=== PATIENT | female | born 1955 | race Caucasian/White ===

== ENCOUNTER 2016-10-16 09:38 | Emergency (ER) | payer BC ==
[2016-10-16 10:02] VITALS: BP 128/46
--- NOTE | 2016-10-16 10:29 | EDM.PDOC ---
ED HPI GENERAL MEDICAL PROBLEM - General Chief Complaint: ENT Problem Stated Complaint: left eye swelling Time Seen by Provider: 10/16/16 09:50 Source of Information: Reports: Patient History Limitations: Reports: No Limitations - History of Present Illness INITIAL COMMENTS - FREE TEXT/NARRATIVE: The patient presents with a "stye" with erythema, pain, swelling, and white purulent drainage from a lesion on her left inferior and lateral eyelid. She reports it began a few days ago and it began having purulent drainage just prior to arrival in the ER. She denies pain or pressure behind the eye and visual changes. She denies fever, chills, and bodyaches. She denies other symptoms or complaints. Left Eye Pain Score (Numeric/FACES): 1 - Related Data Allergies Allergy/AdvReac Type Severity Reaction Status Date / Time generic pain medication Allergy Vomiting Uncoded 11/15/14 23:34 Home Meds: Home Meds ALPRAZolam [Alprazolam] 0.25 - 0.5 mg PO BEDTIME 12/25/13 [History] Albuterol [Proventil HFA] 2 puff INH BID PRN 12/25/13 [History] Aspirin 81 mg PO DAILY 12/25/13 [History] Baclofen 10 mg PO BEDTIME PRN 12/25/13 [History] Clobetasol [Clobetasol Propionate 0.05%] 1 applic TOP DAILY PRN 12/25/13 [ History] Fish Oil/[place]-3 Fatty Acids [Fish Oil] 1 each PO DAILY 12/25/13 [History] Folic Acid 1 mg PO DAILY 12/25/13 [History] Interferon Beta-1a w/Albumin [Rebif] 44 mcg SUBCUT MOWEFR@2100 12/25/13 [History ] Levothyroxine 300 mcg PO ACBRK 12/25/13 [History] Metoprolol Tartrate [Lopressor] 25 mg PO BID 12/25/13 [History] Multivitamin [Multi-Vitamin Daily] 1 tab PO DAILY 12/25/13 [History] Potassium Chloride 10 meq PO QID 12/25/13 [History] Sertraline [Zoloft] 150 mg PO DAILY 12/25/13 [History] Vit D3/Folic Acid/B2/B6/B12 [Folgard Tablet] 1 each PO DAILY 12/25/13 [History] azaTHIOprine [Azathioprine] 1 tab PO TID 12/25/13 [History] predniSONE [Prednisone] 2.5 mg PO DAILY 12/25/13 [History] traMADol [Ultram] 50 mg PO ASDIRECTED PRN 12/25/13 [History] Celecoxib [CeleBREX] 400 mg PO DAILY 04/02/14 [History] Albuterol/Ipratropium [DuoNeb 3.0-0.5 MG/3 ML] 3 ml NEB Q4H PRN #30 neb [Rx] Hydrochlorothiazide 25 mg PO DAILY 11/15/14 [History] Social & Family History - Tobacco Use Smoking Status *Q: Former Smoker Years of Tobacco use: 21 Used Tobacco, but Quit: Yes Month Tobacco Last Used: Stop using at age 39 Second Hand Smoke Exposure: No - Alcohol Use Days Per Week of Alcohol Use: 1 Number of Drinks Per Day: 1 Total Drinks Per Week: 1 - Recreational Drug Use Recreational Drug Use: No Drug Use in Last 12 Months: No Recreational Drug Last Use: 3-4 glasses of tea per day - Living Situation & Occupation Living situation: Reports: Occupation: Employed ED ROS GENERAL - Review of Systems Review Of Systems: ROS reveals no pertinent complaints other than HPI. ED EXAM GENERAL W FULL EYE - Physical Exam Exam: See Below Exam Limited By: No Limitations General Appearance: Alert, WD/WN, No Apparent Distress Eye Exam: Bilateral Eye: EOMI, PERRL Eyelids: Bilateral: Other (There is an internal hordeolum of the left inferior and lateral eyelid measuring about 0.5 cm with a small focal point of white purulent material. There is no evidence of preseptal or orbital cellulitis, conjunctivitis, or keratitis.) Conjunctiva & Sclera: Bilateral: Normal Appearance Cornea Exam: Bilateral: Normal Appearance Extraocular Movements: Bilateral: Intact Pupils: Normal Accommodation Pupillary Size: Bilateral: 4 mm Pupillary Reaction: Bilateral: Brisk Anterior Chamber: Bilateral: Normal Appearance Posterior Chamber: Bilateral: Normal Funduscopic Ears: Normal External Exam, Normal Canal, Hearing Grossly Normal, Normal TMs Nose: Normal Inspection, Normal Mucosa, No Blood Throat/Mouth: Normal Inspection, Normal Lips, Normal Teeth, Normal Gums, Normal Oropharynx Head: Atraumatic, Normocephalic Neck: Normal Inspection, Supple, Non-Tender, Full Range of Motion. No: Lymphadenopathy (L), Lymphadenopathy (R), Tender Lateral, Tender Midline Respiratory/Chest: No Respiratory Distress, Lungs Clear, Normal Breath Sounds, No Accessory Muscle Use Cardiovascular: Normal Peripheral Pulses, Regular Rate, Rhythm, No Edema, No Gallop, No Murmur, No Rub GI/Abdominal: Normal Bowel Sounds, Soft, No Distention Back Exam: Normal Inspection, Full Range of Motion. No: CVA Tenderness (L), CVA Tenderness (R), Paraspinal Tenderness, Vertebral Tenderness Extremities: Normal Inspection, Normal Range of Motion, Non-Tender, No Pedal Edema, Normal Capillary Refill Neurological: Alert, Oriented, CN II-XII Intact, Normal Cognition, Normal Gait, Normal Reflexes, No Motor/Sensory Deficits Psychiatric: Normal Affect, Normal Mood Skin Exam: Warm, Dry, Intact, Normal Color, No Rash Lymphatic: No Adenopathy Course - Vital Signs Last Recorded V/S: Last Vital Signs Temp 36.5 C 10/16/16 09:40 Pulse 45 L 10/16/16 09:40 Resp 20 10/16/16 09:40 BP 128/46 L 10/16/16 09:40 Pulse Ox 100 10/16/16 09:40 Departure - Departure Time of Disposition: 10:30 Disposition: Home, Self-Care 01 Clinical Impression: Hordeolum internum left lower eyelid - Discharge Information Forms: ED Department Discharge - Assessment/Plan Assessment:: Hordeolum internal of left lower lateral eyelid with purulent drainage. Plan: 1. Purluent material expressed and eye flushed copiously with sterile saline. 2. Prescription for erythromycin opthalmic ointment 0.5%, apply to inferior eyelid TID for 7 days. 3. Instructed to wear sunglasses or other eye protection outside and in wind. 4. Follow up with PCP in 5-7 days or sooner if symptoms worsen. 5. Follow up with opthamology if increased/refractory erythema, pain, swelling, purulent drainage, pain or pressure or swelling of eye, or visual changes.
== END 2016-10-16 10:48 | disposition home or self-care (01) ==
LOC: LL.ED 09:38
DX: H00.015 Hordeolum externum left lower eyelid (principal); Z88.8 Allergy status to other drugs, medicaments and biological substances; Z79.899 Other long term (current) drug therapy; Z79.82 Long term (current) use of aspirin; Z87.891 Personal history of nicotine dependence
CPT/HCPCS: 99283

== ENCOUNTER 2018-06-22 12:24 | Observation (INO) | payer BC ==
--- NOTE | 2018-06-22 12:32 | EDM.PDOC ---
ED HPI GENERAL MEDICAL PROBLEM - General Chief Complaint: General Stated Complaint: Fall Time Seen by Provider: 06/22/18 12:25 Source of Information: Reports: Patient, EMS, Family ([id number], Tiki). Denies: EMS Notes Reviewed (Not available at time of dictation) History Limitations: Reports: No Limitations - History of Present Illness INITIAL COMMENTS - FREE TEXT/NARRATIVE: Patient was brought to the emergency room via ambulance with dental equipment technician accompaniment with no treatment in route. The patient slipped out of her bed at about 10 AM this morning with no history of significant fall, head injury, headaches, loss of consciousness, change in mental status, visual changes, paresthesias, neurological deficits, or other complaints or injuries. She does have chronic low back pain, which was not significantly aggravated by the above injury. He did crawl to the living room and did try to get herself up, however even going to her porch, getting help from her [id number], and using a railing on her porch this was unsuccessful. The paramedics did find the patient outside with no history of significant hypothermia, etc.. The patient has noticed that her MS has worsened during the last couple of months with the patient having a walker at home. She has not been going to physical therapy over the winter months. The patient denies any chest pain/pressure, heart flutter, dizziness, orthostasis, orthopnea, diaphoresis, paresthesias, recent decreased exercise tolerance, or any other anginal-type symptoms. No recent history of abdominal pain, heartburn, nausea, diarrhea, melena, gross hematochezia, or any food intolerance, including fatty foods, etc.. She denies any gross hematuria, colic, or other UTI symptoms. The patient also denies any recent fever, cough, wheezing, dyspnea, etc.. Onset: Today, Sudden, Other (As above) Onset Date: 06/22/18 Onset Time: 10:00 Duration: Other (Stable chronic low back pain) Location: Reports: Back. Denies: Head, Face, Neck, Chest, Abdomen, Pelvis, Upper Extremity, Left, Upper Extremity, Right, Lower Extremity, Left, Lower Extremity, Right, Generalized, Radiates to Quality: Reports: Ache, Same as Previous Episode Severity: Mild Improves with: Reports: None Worsens with: Reports: None Context: Reports: Trauma (As above) Associated Symptoms: Reports: Weakness (Progressive MS as above). Denies: Confusion, Chest Pain, Cough, Diaphoresis, Fever/Chills, Headaches, Loss of Appetite, Malaise, Nausea/Vomiting, Seizure, Shortness of Breath, Syncope Treatments GENERAL MAINTENANCE HELPER: Reports: Other (see below) (None) Lower Back Pain Score (Numeric/FACES): 4 - Related Data Allergies Allergy/AdvReac Type Severity Reaction Status Date / Time generic pain medication Allergy Vomiting Uncoded 11/15/14 23:34 Home Meds: Home Meds ALPRAZolam [Alprazolam] 0.25 - 0.5 mg PO BEDTIME 12/25/13 [History] Albuterol [Proventil HFA] 2 puff INH Q4HR PRN 12/25/13 [History] Aspirin 81 mg PO DAILY 12/25/13 [History] Baclofen 10 mg PO TID PRN 12/25/13 [History] Clobetasol [Clobetasol Propionate 0.05% Cream] 1 applic TOP BID PRN 12/25/13 [ History] Fish Oil/[place]-3 Fatty Acids [Fish Oil] 1 each PO DAILY 12/25/13 [History] Folic Acid 1 mg PO DAILY 12/25/13 [History] Interferon Beta-1a w/Albumin [Rebif] 44 mcg SUBCUT MOWEFR@2100 12/25/13 [History ] Metoprolol Tartrate [Lopressor] 25 mg PO BID 12/25/13 [History] Multivitamin [Multi-Vitamin Daily] 1 tab PO DAILY 12/25/13 [History] Potassium Chloride 20 meq PO BID 12/25/13 [History] Sertraline [Zoloft] 100 mg PO DAILY 12/25/13 [History] azaTHIOprine [Azathioprine] 1 tab PO BID 12/25/13 [History] predniSONE [Prednisone] 5 mg PO DAILY 12/25/13 [History] traMADol [Ultram] 50 mg PO ASDIRECTED PRN 12/25/13 [History] Celecoxib [CeleBREX] 400 mg PO DAILY 04/02/14 [History] hydroCHLOROthiazide [Hydrochlorothiazide] 12.5 mg PO DAILY 11/15/14 [History] Acetaminophen with Codeine [Acetaminophen-Cod #3] 1 each PO BID PRN 06/22/18 [ History] Albuterol/Ipratropium [DuoNeb 3.0-0.5 MG/3 ML] 3 ml NEB Q6HR PRN 06/22/18 [ History] Betamethasone/Propylene Glyc [Betamethasone DP Aug 0.05%] 30 ml TP ASDIRECTED PRN 06/22/18 [History] Cinnamon Bark [Cinnamon] 500 mg PO DAILY 06/22/18 [History] Diclofenac Sodium [Solaraze] 100 gm TP ASDIRECTED PRN 06/22/18 [History] Fluticasone/Vilanterol [Breo Ellipta 100-25 MCG Inhalation Kit] 1 each IH DAILY 06/22/18 [History] Makenna Root [Makenna] 250 mg PO DAILY 06/22/18 [History] Ketoconazole [Ketoconazole 2%] 1 applic TOP BID PRN 06/22/18 [History] Levothyroxine 175 mcg PO ACBRK 06/22/18 [History] Liothyronine [Cytomel] 5 mcg PO DAILY 06/22/18 [History] Oxybutynin [Oxybutynin ER] 5 mg PO DAILY 06/22/18 [History] Phentermine HCl 37.5 mg PO DAILY 06/22/18 [History] Pregabalin [Lyrica] 75 mg PO DAILY 06/22/18 [History] Pregabalin [Lyrica] 150 mg PO BEDTIME 06/22/18 [History] Triamcinolone Acetonide [Kenalog 0.1% Crm] 1 applic TOP BID PRN 06/22/18 [ History] sulfaSALAzine 1,000 mg PO DAILY PRN 06/22/18 [History] Past Medical History HEENT History: Reports: Impaired Vision, Other (See Below). Denies: Allergic Rhinitis, Cataract, Glaucoma, Hard of Hearing, Macular Degeneration, Otitis Media, Retinal Detachment Other HEENT History: She wears glasses. Cardiovascular History: Reports: Arrhythmia, Heart Failure, High Cholesterol, Hypertension, Other (See Below). Denies: Aneurysm, Blood Clots/VTE/DVT, CAD, Heart Murmur, Syncope Other Cardiovascular History: PVCs. Dyslipidemia and obesity. Respiratory History: Reports: Asthma, Bronchitis, Recurrent, COPD, Intubation, Previous, Pneumonia, Recurrent, Pulmonary Fibrosis, Sleep Apnea, Other (See Below). Denies: Intubation, Difficult, PE, Pneumothorax, TB Other Respiratory History: Sleep apnea and restless leg syndrome with patient noncompliant with her CPAP recently Gastrointestinal History: Reports: Cholelithiasis, Chronic Constipation, Diverticulosis, Gastritis, GERD, Hiatal Hernia, Other (See Below). Denies: Bowel Obstruction, Celiac Disease, Chronic Diarrhea, Colon Polyp, Fecal Incontinence, GI Bleed, Hepatitis, Inflammatory Bowel Disease, Irritable Bowel Syndrome, Jaundice, Pancreatitis, PUD Other Gastrointestinal History: Ventral abdominal hernias by CT scan. Genitourinary History: Reports: Hydronephrosis, Renal Calculus, Urinary Incontinence, Other (See Below). Denies: Acute Renal Failure, Chronic Renal Insuffiency, STD, UTI, Recurrent Other Genitourinary History: Sided urolithiasis on 10/22/12. Moderate right- sided hydronephrosis with additional urolithiasis with spontaneous passage on 12/25/13. GLOVE BRUSHER History: Reports: Dysfunctional Uterine Bleeding, Polycystic Ovaries, . Denies: Endometriosis, Fibroids, Spontaneous : 2 Para: 2 LMP (Approximate): Other (See Below) Other GLOVE BRUSHER History: Full term without complications during pregnancies or deliveries. Surgical menopause as below secondary to polycystic ovarian syndrome. Musculoskeletal History: Reports: Arthritis, Back Pain, Chronic, Fibromyalgia, Neck Pain, Chronic, Osteoarthritis, RA, Other (See Below). 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 Small proximal avulsion fracture of the middle phalanx of digit #5 of the left hand with PIP dislocation on 11/05/14 with dislocation of the middle phalanx. Neurological History: Reports: Headaches, Chronic, MS, Neuropathy, Peripheral, Speech Problems, Vertigo, Other (See Below). Denies: Cerebral Aneurysms, Concussion, CVA, Head Trauma, Migraines, Neuropathy, Diabetic, Parkinson's, Seizure, TIA Other Neuro History: Restless leg syndrome. Occasional dysarthria and vertigo/ dizziness secondary to her MS diagnosed on 10/18/06 by MRI as below. Psychiatric History: Reports: Addiction, Anxiety, Depression, Other (See Below) . Denies: Abuse, Victim of, ADD, ADHD, Psych Hospitalization(s), PTSD, Suicide Attempt, Suicidal Ideation Other Psychiatric History: Intermittent Ultram use. Endocrine/Metabolic History: Reports: Hypothyroidism, Multinodular Thyroid, Obesity/BMI 30+, Other (See Below). 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 Hypokalemia. Hematologic History: Reports: Other (See Below). Denies: Anemia, Blood Transfusion(s), Iron Deficiency Other Hematologic History: Anemia after first . Immunologic History: Reports: None, Immunosuppression, Other (See Below). Denies: AIDS, HIV, SLE Other Immunologic History: Immunosuppression secondary to medical therapy for her MS. Oncologic (Cancer) History: Reports: Squamous Cell Carcinoma, Other (See Below) . 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 Dermatologic History: Reports: Psoriasis. Denies: Eczema, Venous Stasis Dermatitis - Infectious Disease History Infectious Disease History: Reports: Chicken Pox, Influenza (Influenza A on 04/02), Mononucleosis (Recurrent in her 30s), Rheumatic Fever (1994.). Denies: C- Difficile, Measles, Meningitis, MRSA, Mumps, Pertussis (Whooping Cough), Rubella , Scarlet Fever, Shingles, TB, VRE - Past Surgical History Head Surgeries/Procedures: Reports: None HEENT Surgical History: Reports: Oral Surgery, Other (See Below). Denies: Adenoidectomy, Cataract Surgery, Eye Surgery, Laser Surgery, Myringotomy w Tube( s), Naso-Sinus Surgery, Tonsillectomy Other HEENT Surgeries/Procedures: Multiple teeth extractions. Cardiovascular Surgical History: Reports: None. Denies: Varicose Respiratory Surgical History: Reports: Other (See Below). Denies: Thoracentesis Other Respiratory Surgeries/Procedures: Bronchoscopy at age 6 to remove a peanut. GI Surgical History: Reports: Bariatric Procedure, Cholecystectomy, Colonoscopy , Other (See Below). Denies: Appendectomy, EGD, Hernia, Abdominal, Hernia, Inguinal, Hernia Repair/Other, Polypectomy Other GI Surgeries/Procedures: Colonoscopy last in 2009. Gastric banding in 2008. Laparoscopic cholecystectomy in 2007. Female Surgical History: Reports: Breast Biopsy, D&C, Hysterectomy, Oophorectomy, Salpingo-Oophorectomy, Tubal Ligation, Other (See Below). Denies : Section Other Female Surgeries/Procedures: Lateral tubal ligation in 1987. D&C secondary to dysfunctional uterine bleeding on 10/06/95. Left-sided oophorectomy in April 1985. Laparoscopic assisted vaginal hysterectomy with concomitant right-sided salpingo-oophorectomy and posterior repair on 04/09/99. Endocrine Surgical History: Reports: None. Denies: Thyroid Biopsy Musculoskeletal Surgical History: Reports: Other (See Below) Other Musculoskeletal Surgeries/Procedures:: Left arthroscopic knee surgery in the . Left TKA on 02/05/2000 with right TKA on 09/25/11. Left open knee surgery in 1975. Dermatological Surgical History: Reports: Skin Biopsy, Other (See Below) Other Dermatological Surgeries/Procedures: Excision of squamous cell carcinoma from the lower right cheek in September 2017. Multiple skin biopsies for diagnosis of psoriasis as above. Excision of benign right sided cervical lymph node on 21/05. - Past Imaging History Past Imaging History: Reports: Angiography (Negative heart catheterization on 09/29/16.), Cardiac Echo (06/06/12 with ejection fraction of 55%.), CAT Scan (CT of the abdomen and pelvis on 12/25/13 and 10/22/12.), DEXA Scan (01/31/15), Mammogram ( Last mammogram on 01/07/17.), MRI (MRI of the lumbar spine on 03/03/18 and thoracic spine on 04/15/14. MRI of the Brain on 10/18/06 confirming MS.), PFT ( Last PFTs on 03/17/18.), Stress Testing (Borderline positive Lexiscan on 08/31/16. ), Ultrasound (Soft tissue ultrasound of the neck on 08/26/17.), Other (See Below ) (Multiple EMGs and nerve conduction studies last on 04/13/18. Visual evoked potential on 12/12/12.) Social & Family History - Family History HEENT: Reports: None. Denies: Glaucoma, Macular Degeneration, Retinal Detachment Cardiac: Reports: Afib, AICD, Arrhythmia, Blood Clots/VTE/DVT, Bypass, CAD, High Cholesterol, Hypertension, NC, Pacemaker, Other (See Below). Denies: Aneurysm, Heart Failure, Heart Murmur, Syncope Other Cardiac Family History: Father with history of postoperative DVT of the leg after CABG. Father with initial NC at age 51 with three-vessel CABG. Subsequent NC, atrial fibrillation, and AICD/pacemaker placement at age 61. Patient with fatal NC/arrhythmia despite the ICD at age 70. Paternal grandmother with unknown type of fatal heart disease in her early 50s. Brother and father with hyperlipidemia. Mother with hypertension. Paternal aunt with mitral valve prolapse. Respiratory: Reports: COPD, Sleep Apnea. Denies: Asthma, PE, Pneumothorax Other Respiratory Family Hisory: Son with sleep apnea. Father with COPD with history of tobacco use. GI: Reports: Celiac Disease, Pancreatitis, Other (See Below). Denies: Cholelithiasis, Colon Polyps, GERD, GI bleed, Inflammatory Bowel Disease, Irritable Bowel Syndrome Other GI Family History: Mother with cholelithiasis and diverticulosis. Son with celiac disease. Sister with cholelithiasis and secondary pancreatitis. : Reports: Renal Calculus, Other (See Below). Denies: Renal Disease/ Insufficiency Other Family History: Brother with urolithiasis. OBGYN: Reports: None. Denies: Dysfunctional uterine bleeding, Endometriosis, Recurrent Spontaneous Musculoskeletal: Reports: Arthritis, Gout, Other (See Below). Denies: RA, SLE Other Musculoskeletal Family History: Son with gout. Neurological: Reports: Migraines, Seizure, Other (See Below). Denies: Alzheimers Disease, Cerebral Aneurysms, CVA, Dementia, MS, Parkinson's, TIA Other Neurological Family History: Son with migraine headaches. Sister with unknown type of seizure disorder. Psychiatric: Reports: Anxiety, Depression, Other (See Below). Denies: Abuse, Victim of, ADD, ADHD Other Psychiatric Family History: Son with anxiety depression disorder. Endocrine/Metabolic: Reports: Diabetes, type II, Hypothyroidism, IDDM, Other ( See Below) Other Endocrine/Metabolic Family History: Paternal aunt and Maternal grandfather with IDDM. Sister and mother with hypothyroidism. Hematologic: Reports: None. Denies: Anemia, SLE Immunologic: Reports: None. Denies: AIDS, HIV, SLE Dermatologic: Reports: None. Denies: Eczema, Psoriasis Oncologic: Reports: Lung, Skin, Other (See Below). Denies: Breast, Colon, Hodgkin's Lymphoma, Leukemia, Ovarian, Uterine Other Oncologic Family History: Paternal grandfather with fatal lung cancer at age 65 with history of tobacco use. Mother with squamous cell carcinoma. Father with basal cell carcinoma. Brother with melanoma. Maternal uncle with fatal pancreatic cancer in his 70s. - Tobacco Use Smoking Status *Q: Former Smoker Tobacco Use Within Last Twelve Months: No Years of Tobacco use: 10 Packs/Tins Daily: 1 Packs/Tins Daily Comment: Smoked between ages 19 and 29. Used Tobacco, but Quit: Yes Smoking Cessation Information Provided To Patient: No Second Hand Smoke Exposure: No Second Hand Smoke Education Provided: No - Caffeine Use Caffeine Use: Reports: Coffee (3 cups per week), Tea (4 12 ounce glasses per day ). Denies: Energy Drinks, Soda - Alcohol Use Alcohol Use History: Yes Days Per Week of Alcohol Use: 0 Number of Drinks Per Day: 2 Number of Drinks Per Day Comment: Usually wine every couple of months. DWI at age 20 with no previous history of abuse or treatment. Total Drinks Per Week: 0 Alcohol Use in Last Twelve Months: Yes Alcohol Use Frequency: Monthly - Recreational Drug Use Recreational Drug Use: No Recreational Drug Type: Reports: Marijuana/Hashish (Experimental at about age 20.). 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 ED EXAM, GENERAL - Physical Exam Exam: See Below Exam Limited By: No Limitations General Appearance: Alert, WD/WN, No Apparent Distress, Anxious (Moderate) Eye Exam: Bilateral Eye: EOMI, Normal Inspection (No nystagmus. Patient wears glasses), PERRL Ears: Normal External Exam, Normal Canal, Hearing Grossly Normal, Normal TMs Nose: Normal Inspection, Normal Mucosa, No Blood Throat/Mouth: Normal Lips, Normal Gums, Normal Oropharynx, Normal Voice, No Airway Compromise. No: Normal Teeth (Multiple missing teeth and diffuse caries with no abscesses or drainage), Dysphagia, Perioral Cyanosis Head: Atraumatic, Normocephalic. No: Facial Swelling, Facial Tenderness, Sinus Tenderness Neck: Normal Inspection, Supple, Non-Tender, Full Range of Motion. No: Carotid Bruit, Lymphadenopathy (L), Lymphadenopathy (R), Thyromegaly Respiratory/Chest: No Respiratory Distress, Lungs Clear, Normal Breath Sounds, No Accessory Muscle Use, Chest Non-Tender. No: Pleural Rub, Retractions Cardiovascular: Normal Peripheral Pulses, Regular Rate, Rhythm, No Edema, No Gallop, No JVD, No Murmur, No Rub. No: Gallop/S3, Gallop/S4, Friction Rub Peripheral Pulses: 2+: Radial (L), Radial (R), Dorsalis Pedis (L), Dorsalis Pedis (R) GI/Abdominal: Normal Bowel Sounds, Soft, Non-Tender, No Organomegaly, No Distention, No Abnormal Bruit, No Mass, Pelvis Stable, Other (Obese). No: Guarding (Female) Exam: Deferred Rectal (Female) Exam: Deferred Back Exam: Full Range of Motion, Other (Mild scoliosis). No: CVA Tenderness (L) , CVA Tenderness (R), Muscle Spasm, Paraspinal Tenderness, Vertebral Tenderness Extremities: Normal Inspection, Normal Range of Motion, Non-Tender, No Pedal Edema, Normal Capillary Refill, Other (Multiple old areas of small ecchymosis and superficial abrasions on the forearms). No: Román's Sign Neurological: Alert, Oriented, Normal Cognition, Normal Reflexes (Negative Babinski's), Abnormal Gait (Mild mostly right-sided leg weakness affecting gait secondary to MS) Psychiatric: Anxious (Moderate), Depressed Mood (Mild to moderate) Skin Exam: Warm, Dry, Intact, Normal Color, No Rash, Wound/Incision (As above). No: Diaphoretic, Ecchymosis Lymphatic: No Adenopathy Course - Vital Signs Last Recorded V/S: Last Vital Signs Temp 36.2 C 06/22/18 14:03 Pulse 50 L 06/22/18 14:03 Resp 18 06/22/18 14:03 BP 158/74 H 06/22/18 14:03 Pulse Ox 97 06/22/18 14:03 Vital Signs - 24 hr 06/22/18 06/22/18 06/22/18 12:25 14:03 14:36 Temperature [ 36.2 C 36.2 C 36.8 C Temporal] Pulse, 72 50 L 53 L Peripheral [ Right Pulse Oximetry] Respiratory 15 18 18 Rate Blood Pressure 143/78 H 158/74 H 158/53 H [Left Upper Arm ] O2 Sat by Pulse 97 97 98 Oximetry - Orders/Labs/Meds Orders: Active Orders 24 hr Category Date Time Status Cardiac Monitoring [RC] . DIRECTED Care 06/22/18 14:34 Ordered Obtain Past Medical Record [OM.PC] Routine Oth 06/22/18 12:50 Active Labs: Laboratory Tests 06/22/18 06/22/18 06/22/18 Range/Units 13:30 13:30 13:30 WBC 10.4 H (4.0-10.2) K/uL RBC 4.41 (3.77-5.09) M/uL Hgb 13.5 (11.7-15.5) g/dL Hct 40.9 (34.0-46.0) % MCV 92.7 D (84.0-98.0) fL MCH 30.6 (28.2-33.3) pg MCHC 33.0 (31.7-36.0) g/dL RDW 14.0 (11.2-14.1) % Plt Count 194 (150-350) K/uL Neut % (Auto) 83.3 H (45.0-80.0) % Lymph % (Auto) 8.1 L (10.0-50.0) % [place] % (Auto) 7.4 (2.0-14.0) % Eos % (Auto) 1.0 (0.0-5.0) % Baso % (Auto) 0.2 (0.0-2.0) % Neut # (Auto) 8.70 H (1.40-7.00) K/uL Lymph # (Auto) 0.85 (0.50-3.50) K/uL [place] # (Auto) 0.77 (0.00-1.00) K/uL Eos # (Auto) 0.10 (0.00-0.50) K/uL Baso # (Auto) 0.02 (0.00-0.20) K/uL Sodium 139 (136-145) mmol/L Potassium 4.1 (3.5-5.1) mmol/L Chloride 103 (98-107) mmol/L Carbon Dioxide 27.8 (21.0-32.0) mmol/L BUN 11 (7-18) mg/dL Creatinine 0.66 (0.51-1.17) mg/dL Est Cr Clr Drug Dosing 87.05 mL/min Estimated GFR (MDRD) > 60 mL/min Glucose 96 (74-106) mg/dL Lactic Acid 1.8 (0.4-2.0) mmol/L Calcium 9.7 (8.5-10.1) mg/dL Total Bilirubin 0.3 (0.2-1.0) mg/dL AST 22 (15-37) U/L ALT 21 (12-78) U/L Alkaline Phosphatase 93 (46-116) IU/L Total Protein 7.3 (6.4-8.2) g/dL Albumin 3.4 (3.4-5.0) g/dL TSH, Ultra Sensitive 0.060 L (0.358-3.740) mIU/mL Meds: None - Radiology Interpretation Free Text/Narrative:: Enterprise Resource Planning Consultant shows normal sinus rhythm in the high 50s to low 60s with no ectopy or arrhythmia. Departure - Departure Time of Disposition: 14:45 Disposition: Refer to Observation Clinical Impression: COPD (chronic obstructive pulmonary disease), Multiple sclerosis, Hypertension , Hypothyroidism (acquired), Osteoarthritis, Mixed anxiety depressive disorder, Obesity (BMI 35.0-39.9 without comorbidity) - Discharge Information *PRESCRIPTION DRUG MONITORING PROGRAM REVIEWED*: Not Applicable *COPY OF PRESCRIPTION DRUG MONITORING REPORT IN PATIENT YARELI: Not Applicable Referrals: Arsen-Isabell Oropeza MD [Primary Care Provider] - Forms: ED Department Discharge Care Plan Goals: See plan - Problem List & Annotations (1) Multiple sclerosis SNOMED Code(s): 58107680 Code(s): G35 - MULTIPLE SCLEROSIS Status: Chronic Priority: High Current Visit: Yes Annotation/Comment:: Progressive weakness secondary to her MS during the last couple of months as above. Minor fall today with no significant injury. One dose of IV Solu-Medrol to be given shortly after admission with further neurology consultation, medication changes, etc. depending on her clinical course. She was strongly advised to continue her physical therapy including during the winter months. (2) Hypothyroidism (acquired) SNOMED Code(s): 960526763 Code(s): E03.9 - HYPOTHYROIDISM, UNSPECIFIED Status: Chronic Priority: High Current Visit: Yes Annotation/Comment:: Persistent suppressed TSH despite recent decrease of her thyroid supplementation about 3 months ago with no follow-up evaluation by patient history. Free T3, free T4, and thyroid ultrasound be ordered during this hospitalization. Endocrinology consultation when necessary with suspicion of possible Ryan's disease from previous thyroid ultrasound on 08/26/17 as above. (3) COPD (chronic obstructive pulmonary disease) SNOMED Code(s): 61114874 Code(s): J44.9 - CHRONIC OBSTRUCTIVE PULMONARY DISEASE, UNSPECIFIED Status : Chronic Priority: Medium Current Visit: Yes Annotation/Comment:: No recent fever or bronchitic type symptoms. Stable by history. Qualifiers: COPD type: emphysema Emphysema type: panlobular Qualified Code(s): J43.1 - Panlobular emphysema (4) Hypertension SNOMED Code(s): 50835552 Code(s): I10 - ESSENTIAL (PRIMARY) HYPERTENSION Status: Chronic Priority : Medium Current Visit: Yes Annotation/Comment:: Blood pressures were stable in the emergency room although occasionally elevated. Continue to observe closely. Some occasional mild bradycardia with current beta juan therapy. Medication adjustment depending on her clinical course. Qualifiers: Hypertension type: essential hypertension Qualified Code(s): I10 - Essential (primary) hypertension (5) Mixed anxiety depressive disorder SNOMED Code(s): 745454626 Code(s): F41.8 - OTHER SPECIFIED ANXIETY DISORDERS Status: Chronic Priority: Medium Current Visit: Yes Annotation/Comment:: Stable by history, however moderate control by today's ER evaluation. Continue to observe closely. (6) Obesity (BMI 35.0-39.9 without comorbidity) SNOMED Code(s): 290993503, 668956907 Code(s): E66.9 - OBESITY, UNSPECIFIED Status: Chronic Priority: Medium Current Visit: Yes Annotation/Comment:: Persistent obesity despite gastric lap banding as above. Weight loss in moderation advisable. (7) Osteoarthritis SNOMED Code(s): 120233239 Code(s): M19.90 - UNSPECIFIED OSTEOARTHRITIS, UNSPECIFIED SITE Status: Chronic Priority: Medium Current Visit: Yes Annotation/Comment:: Stable chronic low back pain by history with no significant injury from fall as above. Qualifiers: Osteoarthritis location: multiple joints Osteoarthritis type: primary Qualified Code(s): M15.0 - Primary generalized (osteo)arthritis - Problem List Review Problem List Initiated/Reviewed/Updated: Yes - My Orders Last 24 Hours: My Active Orders 06/22/18 12:50 Obtain Past Medical Record [OM.PC] Routine 06/22/18 14:34 Cardiac Monitoring [RC] . DIRECTED - Assessment/Plan Admission H&P: Please use this note as an admission H&P Last 24 Hours: My Active Orders 06/22/18 12:50 Obtain Past Medical Record [OM.PC] Routine 06/22/18 14:34 Cardiac Monitoring [RC] . DIRECTED Assessment:: As above Plan: As above. Extensive precautions were given to the patient, who is in agreement with the treatment plan. The patient's condition is stable enough for observation status and general supervision. [facility] to assume care in the a.m. with Isabell Womack MD at [facility] in [place] notified today by me of admission and planned treatment.
[2018-06-22 13:58] LABS: CHLORIDE,CL 103 mmol/L (98-107); SODIUM,NA 139 mmol/L (136-145)
[2018-06-22] MEDS ORDERED: Baclofen 10 MG Tab PO PRN (15:16)
[2018-06-22] MEDS ORDERED: Clobetasol 0.05% Crm 15 GM Tube TOP PRN (15:16)
[2018-06-22] MEDS ORDERED: methylPREDNISolone Sodium Succinate 125 MG/2 ML SDV IVPUSH ONE (15:19)
[2018-06-22] MEDS ORDERED: Famotidine 20 MG/2 ML SDV IVPUSH ONE (15:20)
[2018-06-22] MEDS ORDERED: Albuterol/Ipratropium 3.0-0.5 MG/3 ML Neb Soln NEB PRN (15:47)
[2018-06-22] MEDS ORDERED: Enoxaparin 40 MG/0.4 ML Syringe SUBCUT ONE ×2 (15:53→18:00)
[2018-06-22] MEDS ORDERED: Albuterol 0.083% 2.5 MG/3 ML Neb Soln INH PRN (16:00)
[2018-06-22] MEDS: Metoprolol Tartrate 25 MG Tab PO SCH (17:47)
[2018-06-22] MEDS: Potassium Chloride 10 MEQ Tab.ER PO SCH (17:47)
[2018-06-22] MEDS ORDERED: Pregabalin 75 MG Cap PO SCH (20:00)
[2018-06-22] MEDS: Albuterol/Ipratropium 3.0-0.5 MG/3 ML Neb Soln NEB SCH (20:21)
[2018-06-23] MEDS: Albuterol/Ipratropium 3.0-0.5 MG/3 ML Neb Soln NEB SCH ×3 (01:12→14:41)
[2018-06-23] MEDS ORDERED: Levothyroxine 25 MCG Tab PO SCH (07:30)
[2018-06-23] MEDS ORDERED: Levothyroxine 112 MCG Tab PO SCH (07:30)
[2018-06-23 07:39] LABS: CHLORIDE,CL 106 mmol/L (98-107); SODIUM,NA 142 mmol/L (136-145)
[2018-06-23] MEDS ORDERED: Formoterol/Mometasone 100-5 MCG 8.8 GM Inhaler IH SCH (08:00)
[2018-06-23] MEDS ORDERED: Hydrochlorothiazide 25 MG Tab PO SCH (08:00)
[2018-06-23] MEDS ORDERED: Celecoxib 100 MG Cap PO SCH (08:00)
[2018-06-23] MEDS ORDERED: Oxybutynin 5 MG Tab.ER PO SCH (08:00)
[2018-06-23] MEDS ORDERED: Sertraline 50 MG Tab PO SCH (08:00)
[2018-06-23] MEDS ORDERED: predniSONE 5 MG Tab PO SCH (08:00)
[2018-06-23] MEDS ORDERED: Fish Oil/Omega-3 Fatty Acids 1 Gm Cap PO SCH (08:00)
[2018-06-23] MEDS ORDERED: Pregabalin 75 MG Cap PO SCH (08:00)
[2018-06-23] MEDS ORDERED: PHENTERMINE HCL 37.5 MG PO SCH (08:00)
[2018-06-23] MEDS ORDERED: Folic Acid 1 MG Tab PO SCH (08:00)
[2018-06-23] MEDS ORDERED: Aspirin 81 MG Tab.Chew PO SCH (08:00)
[2018-06-23] MEDS: Metoprolol Tartrate 25 MG Tab PO SCH (08:31)
[2018-06-23] MEDS: Potassium Chloride 10 MEQ Tab.ER PO SCH (08:32)
[2018-06-23 11:51] VITALS: BP 142/69
--- NOTE | 2018-06-23 17:13 | PCM.PN ---
- General Info Date of Service: 06/23/18 Functional Status: Reports: Pain Controlled - Review of Systems General: Reports: Weakness (but at baseline) HEENT: Reports: No Symptoms Pulmonary: Reports: No Symptoms Cardiovascular: Reports: No Symptoms Gastrointestinal: Reports: No Symptoms Genitourinary: Reports: No Symptoms Musculoskeletal: Reports: Back Pain (chronic), Leg Pain (chronic), Joint Pain ( chronic) Skin: Reports: No Symptoms Neurological: Reports: Pre-Existing Deficit, Difficulty Walking (at baseline), Weakness Psychiatric: Reports: No Symptoms, Anxiety (at times) - Patient Data Vitals - Most Recent: Last Vital Signs Temp 98.5 F 06/23/18 11:50 Pulse 80 06/23/18 11:50 Resp 16 06/23/18 11:50 BP 142/69 H 06/23/18 11:50 Pulse Ox 97 06/23/18 11:50 Weight - Most Recent: 304 lb I&O - Last 24 Hours: Intake & Output 06/23/18 06/23/18 06/23/18 06:59 14:59 22:59 Intake Total 50 600 Output Total 100 Balance -50 600 Lab Results Last 24 Hours: Laboratory Results - last 24 hr 06/22/18 06/23/18 06/23/18 Range/Units 13:30 06:45 06:45 WBC 9.9 (4.0-10.2) K/uL RBC 4.19 (3.77-5.09) M/uL Hgb 12.7 (11.7-15.5) g/dL Hct 39.1 (34.0-46.0) % MCV 93.3 (84.0-98.0) fL MCH 30.3 (28.2-33.3) pg MCHC 32.5 (31.7-36.0) g/dL RDW 13.6 (11.2-14.1) % Plt Count 197 (150-350) K/uL Neut % (Auto) 93.1 H (45.0-80.0) % Lymph % (Auto) 3.5 L (10.0-50.0) % [place] % (Auto) 3.3 (2.0-14.0) % Eos % (Auto) 0.0 (0.0-5.0) % Baso % (Auto) 0.1 (0.0-2.0) % Neut # (Auto) 9.25 H (1.40-7.00) K/uL Lymph # (Auto) 0.35 L (0.50-3.50) K/uL [place] # (Auto) 0.33 (0.00-1.00) K/uL Eos # (Auto) 0.00 (0.00-0.50) K/uL Baso # (Auto) 0.01 (0.00-0.20) K/uL ESR 45 H (0-30) mm/hr Sodium 142 (136-145) mmol/L Potassium 4.3 (3.5-5.1) mmol/L Chloride 106 (98-107) mmol/L Carbon Dioxide 28.2 (21.0-32.0) mmol/L BUN 12 (7-18) mg/dL Creatinine 0.66 (0.51-1.17) mg/dL Est Cr Clr Drug Dosing 87.05 mL/min Estimated GFR (MDRD) > 60 mL/min Glucose 139 H (74-106) mg/dL Calcium 9.2 (8.5-10.1) mg/dL Total Bilirubin 0.3 (0.2-1.0) mg/dL AST 23 (15-37) U/L ALT 22 (12-78) U/L Alkaline Phosphatase 85 (46-116) IU/L C-Reactive Protein 0.8 3.2 H (<=0.9) mg/dL Total Protein 6.7 (6.4-8.2) g/dL Albumin 3.0 L (3.4-5.0) g/dL Vitamin B12 903 (193-986) pg/mL Folate (8.6-58.9) ng/mL Free T4 1.64 H (0.76-1.46) ng/dL 06/23/18 Range/Units 06:45 WBC (4.0-10.2) K/uL RBC (3.77-5.09) M/uL Hgb (11.7-15.5) g/dL Hct (34.0-46.0) % MCV (84.0-98.0) fL MCH (28.2-33.3) pg MCHC (31.7-36.0) g/dL RDW (11.2-14.1) % Plt Count (150-350) K/uL Neut % (Auto) (45.0-80.0) % Lymph % (Auto) (10.0-50.0) % [place] % (Auto) (2.0-14.0) % Eos % (Auto) (0.0-5.0) % Baso % (Auto) (0.0-2.0) % Neut # (Auto) (1.40-7.00) K/uL Lymph # (Auto) (0.50-3.50) K/uL [place] # (Auto) (0.00-1.00) K/uL Eos # (Auto) (0.00-0.50) K/uL Baso # (Auto) (0.00-0.20) K/uL ESR (0-30) mm/hr Sodium (136-145) mmol/L Potassium (3.5-5.1) mmol/L Chloride (98-107) mmol/L Carbon Dioxide (21.0-32.0) mmol/L BUN (7-18) mg/dL Creatinine (0.51-1.17) mg/dL Est Cr Clr Drug Dosing mL/min Estimated GFR (MDRD) mL/min Glucose (74-106) mg/dL Calcium (8.5-10.1) mg/dL Total Bilirubin (0.2-1.0) mg/dL AST (15-37) U/L ALT (12-78) U/L Alkaline Phosphatase (46-116) IU/L C-Reactive Protein (<=0.9) mg/dL Total Protein (6.4-8.2) g/dL Albumin (3.4-5.0) g/dL Vitamin B12 (193-986) pg/mL Folate 23.4 (8.6-58.9) ng/mL Free T4 (0.76-1.46) ng/dL Med Orders - Current: Current Medications Albuterol (Proventil Neb Soln) 2.5 mg INH Q2H PRN PRN Reason: SHORTNESS OF BREATH Albuterol/Ipratropium (Duoneb 3.0-0.5 Mg/3 Ml) 3 ml NEB Q4HRRT PRN PRN Reason: Dyspnea Albuterol/Ipratropium (Duoneb 3.0-0.5 Mg/3 Ml) 3 ml NEB Q6HRRT [facility] Last Admin: 06/23/18 14:41 Dose: 3 ml Aspirin (Aspirin) 81 mg PO DAILY [facility] Last Admin: 06/23/18 08:32 Dose: 81 mg Azathioprine (Imuran) 50 mg PO BID [facility] Last Admin: 06/23/18 08:33 Dose: 50 mg Baclofen (Lioresal) 10 mg PO TID PRN PRN Reason: restless legs Celecoxib (Celebrex) 400 mg PO DAILY [facility] Last Admin: 06/23/18 08:31 Dose: 400 mg Clobetasol Propionate (Clobetasol Propionate 0.05%) 0 gm TOP BID PRN PRN Reason: Rash Fish Oil (Fish Oil) 1 gm PO DAILY [facility] Last Admin: 06/23/18 08:32 Dose: 1 gm Folic Acid (Folic Acid) 1 mg PO DAILY [facility] Last Admin: 06/23/18 08:31 Dose: 1 mg Hydrochlorothiazide (Hydrochlorothiazide) 12.5 mg PO DAILY [facility] Last Admin: 06/23/18 08:32 Dose: 12.5 mg Levothyroxine Sodium (Levothyroxine) 112 mcg PO ACBREAKFAST [facility] Last Admin: 06/23/18 08:31 Dose: 112 mcg Levothyroxine Sodium (Levothyroxine) 25 mcg PO ACBREAKFAST [facility] Last Admin: 06/23/18 08:30 Dose: 25 mcg Metoprolol Tartrate (Lopressor) 25 mg PO BID [facility] Last Admin: 06/23/18 08:31 Dose: 25 mg Mometasone Furoate/Formoterol Fumar (Dulera 100-5 Mcg) 2 puff IH Q12HR [facility] Last Admin: 06/23/18 08:33 Dose: 2 puff Non-Formulary Medication (Phentermine Hcl [Phentermine Hcl]) 37.5 mg PO DAILY [facility] Oxybutynin Chloride (Oxybutynin Er) 5 mg PO DAILY [facility] Last Admin: 06/23/18 08:32 Dose: 5 mg Potassium Chloride (Klor-Con 10) 20 meq PO BID [facility] Last Admin: 06/23/18 08:32 Dose: 20 meq Prednisone (Prednisone) 5 mg PO DAILY [facility] Last Admin: 06/23/18 08:32 Dose: 5 mg Pregabalin (Lyrica) 75 mg PO DAILY [facility] Last Admin: 06/23/18 08:33 Dose: 75 mg Pregabalin (Lyrica) 150 mg PO BEDTIME [facility] Last Admin: 06/22/18 20:23 Dose: 150 mg Sertraline HCl (Zoloft) 100 mg PO DAILY [facility] Last Admin: 06/23/18 08:31 Dose: 100 mg Discontinued Medications Enoxaparin Sodium (Lovenox) 40 mg SUBCUT ONETIME ONE Stop: 06/22/18 15:54 Last Admin: 06/22/18 16:12 Dose: Not Given Enoxaparin Sodium (Lovenox) 40 mg SUBCUT ONETIME ONE Stop: 06/22/18 18:01 Last Admin: 06/22/18 20:24 Dose: 40 mg Famotidine (Pepcid) 40 mg IVPUSH ONETIME ONE Stop: 06/22/18 15:21 Last Admin: 06/22/18 16:12 Dose: 40 mg Methylprednisolone Sodium Succinate (Solu-Medrol) 125 mg IVPUSH ONETIME ONE Stop: 06/22/18 15:20 Last Admin: 06/22/18 16:12 Dose: 125 mg - Exam Quality Assessment: DVT Prophylaxis General: Alert, Cooperative, No Acute Distress HEENT: Mucous Membr. Moist/[place] Neck: Trachea Midline, No JVD Lungs: Clear to Auscultation, Normal Respiratory Effort Cardiovascular: Regular Rate, Regular Rhythm GI/Abdominal Exam: Soft, Non-Tender, No Distention (Female) Exam: Deferred Back Exam: Normal Inspection Extremities: Non-Tender Skin: Warm, Dry, Intact Neurological: No New Focal Deficit Psy/Mental Status: Alert, Normal Affect, Normal Mood - Problem List & Annotations (1) Hypertension SNOMED Code(s): 77808003 Code(s): I10 - ESSENTIAL (PRIMARY) HYPERTENSION Status: Chronic Priority : Medium Current Visit: Yes Qualifiers: Hypertension type: essential hypertension Qualified Code(s): I10 - Essential (primary) hypertension (2) Hypothyroidism (acquired) SNOMED Code(s): 122073797 Code(s): E03.9 - HYPOTHYROIDISM, UNSPECIFIED Status: Chronic Priority: High Current Visit: Yes Annotation/Comment:: She does follow closely with [place] endocrinology. (3) Mixed anxiety depressive disorder SNOMED Code(s): 477211022 Code(s): F41.8 - OTHER SPECIFIED ANXIETY DISORDERS Status: Chronic Priority: Medium Current Visit: Yes (4) Multiple sclerosis SNOMED Code(s): 62948851 Code(s): G35 - MULTIPLE SCLEROSIS Status: Chronic Priority: High Current Visit: Yes Annotation/Comment:: Progressive weakness secondary to her MS during the last couple of months as above. Minor fall today with no significant injury. One dose of IV Solu-Medrol to be given shortly after admission with further neurology consultation, medication changes, etc. depending on her clinical course. She was strongly advised to continue her physical therapy including during the winter months. 06/23/18 She does follow closely with [place] neurology, rheumatology, orthopedic surgeon, pain clinic, and endocrinology. (5) Obesity (BMI 35.0-39.9 without comorbidity) SNOMED Code(s): 324659194, 156031517 Code(s): E66.9 - OBESITY, UNSPECIFIED Status: Chronic Priority: Medium Current Visit: Yes Annotation/Comment:: Persistent obesity despite gastric lap banding as above. Weight loss in moderation advisable. (6) Osteoarthritis SNOMED Code(s): 271964319 Code(s): M19.90 - UNSPECIFIED OSTEOARTHRITIS, UNSPECIFIED SITE Status: Chronic Priority: Medium Current Visit: Yes Qualifiers: Osteoarthritis location: multiple joints Osteoarthritis type: primary Qualified Code(s): M15.0 - Primary generalized (osteo)arthritis Annotation/Comment:: Stable chronic low back pain by history with no significant injury from fall as above. (7) Asthma SNOMED Code(s): 534570364 Code(s): J45.909 - UNSPECIFIED ASTHMA, UNCOMPLICATED Status: Acute Current Visit: No - Problem List Review Problem List Initiated/Reviewed/Updated: Yes - My Orders Last 24 Hours: My Active Orders 06/23/18 17:02 Discontinue Telemetry Monitoring [Cardiac Monitoring Discontinue] [RC] Click to Edit Peripheral IV Discontinue [OM.PC] Routine 06/23/18 17:08 Ready for Discharge [RC] PER UNIT ROUTINE - Plan Plan:: 06/23/18 Arsen Oropeza MD She feels better today. She has the chronic weakness, chronic pain but feels she is back to baseline. Ready for discharge to home.
--- NOTE | 2018-06-23 17:21 | PCM.DCSUM1 ---
Discharge Summary - Hospital Course Diagnosis: Stroke: No - Discharge Data Discharge Date: 06/23/18 Discharge Disposition: Home, Self-Care 01 Condition: Fair - Discharge Diagnosis/Problem(s) (1) Hypertension SNOMED Code(s): 25351144 ICD Code: I10 - ESSENTIAL (PRIMARY) HYPERTENSION Status: Chronic Priority : Medium Current Visit: Yes Qualifiers: Hypertension type: essential hypertension Qualified Code(s): I10 - Essential (primary) hypertension (2) Hypothyroidism (acquired) SNOMED Code(s): 048036204 ICD Code: E03.9 - HYPOTHYROIDISM, UNSPECIFIED Status: Chronic Priority: High Current Visit: Yes Problem Details: She does follow closely with [place] endocr[facility]. (3) Mixed anxiety depressive disorder SNOMED Code(s): 766886893 ICD Code: F41.8 - OTHER SPECIFIED ANXIETY DISORDERS Status: Chronic Priority: Medium Current Visit: Yes (4) Multiple sclerosis SNOMED Code(s): 80818211 ICD Code: G35 - MULTIPLE SCLEROSIS Status: Chronic Priority: High Current Visit: Yes Problem Details: Progressive weakness secondary to her MS during the last couple of months as above. Minor fall today with no significant injury. One dose of IV Solu-Medrol to be given shortly after admission with further neurology consultation, medication changes, etc. depending on her clinical course. She was strongly advised to continue her physical therapy including during the winter months. 06/23/18 She does follow closely with [place] neurology, rheumatology, orthopedic surgeon, pain clinic, and endocrinology. (5) Obesity (BMI 35.0-39.9 without comorbidity) SNOMED Code(s): 759335122, 569973386 ICD Code: E66.9 - OBESITY, UNSPECIFIED Status: Chronic Priority: Medium Current Visit: Yes Problem Details: Persistent obesity despite gastric lap banding as above. Weight loss in moderation advisable. (6) Osteoarthritis SNOMED Code(s): 464416833 ICD Code: M19.90 - UNSPECIFIED OSTEOARTHRITIS, UNSPECIFIED SITE Status: Chronic Priority: Medium Current Visit: Yes Problem Details: Stable chronic low back pain by history with no significant injury from fall as above. Qualifiers: Osteoarthritis location: multiple joints Osteoarthritis type: primary Qualified Code(s): M15.0 - Primary generalized (osteo)arthritis (7) Asthma SNOMED Code(s): 136565600 ICD Code: J45.909 - UNSPECIFIED ASTHMA, UNCOMPLICATED Status: Acute Current Visit: No (8) Fall from bed SNOMED Code(s): 23849806 ICD Code: W06.XXXA - FALL FROM BED, INITIAL ENCOUNTER Status: Acute Priority: High Current Visit: Yes Qualifiers: Encounter type: subsequent encounter Qualified Code(s): W06.XXXD - Fall from bed, subsequent encounter (9) Fall (on) (from) other stairs and steps, sequela SNOMED Code(s): 083263294 ICD Code: W10.8XXS - FALL (ON) (FROM) OTHER STAIRS AND STEPS, SEQUELA Status: Acute Priority: High Current Visit: Yes - Patient Summary/Data Consults: Consultations 06/22/18 15:42 OT Evaluation and Treatment [CONS] Routine 06/22/18 15:44 PT Evaluation and Treatment [CONS] Routine - Patient Instructions Diet: Regular Diet as Tolerated Activity: As Tolerated Driving: Do Not Drive Showering/Bathing: May Shower Other/Special Instructions: Follow up with your doctors [place] rheumatology, neurology, orthopedic surgeon, endocrinology as scheduled. Follow up at [facility] as needed. - Discharge Plan *PRESCRIPTION DRUG MONITORING PROGRAM REVIEWED*: Not Applicable *COPY OF PRESCRIPTION DRUG MONITORING REPORT IN PATIENT YARELI: Not Applicable Home Medications: Home Meds ALPRAZolam [Alprazolam] 0.25 - 0.5 mg PO BEDTIME 12/25/13 [History] Albuterol [Proventil HFA] 2 puff INH Q4HR PRN 12/25/13 [History] Aspirin 81 mg PO DAILY 12/25/13 [History] Baclofen 10 mg PO TID PRN 12/25/13 [History] Clobetasol [Clobetasol Propionate 0.05% Cream] 1 applic TOP BID PRN 12/25/13 [ History] Fish Oil/[place]-3 Fatty Acids [Fish Oil] 1 each PO DAILY 12/25/13 [History] Folic Acid 1 mg PO DAILY 12/25/13 [History] Interferon Beta-1a w/Albumin [Rebif] 44 mcg SUBCUT MOWEFR@2100 12/25/13 [History ] Metoprolol Tartrate [Lopressor] 25 mg PO BID 12/25/13 [History] Multivitamin [Multi-Vitamin Daily] 1 tab PO DAILY 12/25/13 [History] Potassium Chloride 20 meq PO BID 12/25/13 [History] Sertraline [Zoloft] 100 mg PO DAILY 12/25/13 [History] azaTHIOprine [Azathioprine] 1 tab PO BID 12/25/13 [History] predniSONE [Prednisone] 5 mg PO DAILY 12/25/13 [History] traMADol [Ultram] 50 mg PO ASDIRECTED PRN 12/25/13 [History] Celecoxib [CeleBREX] 400 mg PO DAILY 04/02/14 [History] hydroCHLOROthiazide [Hydrochlorothiazide] 12.5 mg PO DAILY 11/15/14 [History] Acetaminophen with Codeine [Acetaminophen-Cod #3] 1 each PO BID PRN 06/22/18 [ History] Albuterol/Ipratropium [DuoNeb 3.0-0.5 MG/3 ML] 3 ml NEB Q6HR PRN 06/22/18 [ History] Betamethasone/Propylene Glyc [Betamethasone DP Aug 0.05%] 30 ml TP ASDIRECTED PRN 06/22/18 [History] Cinnamon Bark [Cinnamon] 500 mg PO DAILY 06/22/18 [History] Diclofenac Sodium [Solaraze] 100 gm TP ASDIRECTED PRN 06/22/18 [History] Fluticasone/Vilanterol [Breo Ellipta 100-25 MCG Inhalation Kit] 1 each IH DAILY 06/22/18 [History] Makenna Root [Makenna] 250 mg PO DAILY 06/22/18 [History] Ketoconazole [Nizoral 2% Crm] 1 applic TOP BID PRN 06/22/18 [History] Levothyroxine 175 mcg PO ACBRK 06/22/18 [History] Liothyronine [Cytomel] 5 mcg PO DAILY 06/22/18 [History] Oxybutynin [Oxybutynin ER] 5 mg PO DAILY 06/22/18 [History] Phentermine HCl 37.5 mg PO DAILY 06/22/18 [History] Pregabalin [Lyrica] 75 mg PO DAILY 06/22/18 [History] Pregabalin [Lyrica] 150 mg PO BEDTIME 06/22/18 [History] Triamcinolone Acetonide [Kenalog 0.1% Crm] 1 applic TOP BID PRN 06/22/18 [ History] sulfaSALAzine 1,000 mg PO DAILY PRN 06/22/18 [History] Oxygen Therapy Mode: Room Air Patient Handouts: Incentive Spirometer, Methylprednisolone Solution for Injection, Famotidine injection Forms: ED Department Discharge Referrals: Sheets-Isabell Oropeza MD [Primary Care Provider] - - Discharge Summary/Plan Comment DC Time >30 min.: No - Patient Data Vitals - Most Recent: Last Vital Signs Temp 98.5 F 06/23/18 11:50 Pulse 80 06/23/18 11:50 Resp 16 06/23/18 11:50 BP 142/69 H 06/23/18 11:50 Pulse Ox 97 06/23/18 11:50 Weight - Most Recent: 304 lb I&O - Last 24 hours: Intake & Output 06/23/18 06/23/18 06/23/18 06:59 14:59 22:59 Intake Total 50 600 Output Total 100 Balance -50 600 Lab Results - Last 24 hrs: Laboratory Results - last 24 hr 06/22/18 06/23/18 06/23/18 Range/Units 13:30 06:45 06:45 WBC 9.9 (4.0-10.2) K/uL RBC 4.19 (3.77-5.09) M/uL Hgb 12.7 (11.7-15.5) g/dL Hct 39.1 (34.0-46.0) % MCV 93.3 (84.0-98.0) fL MCH 30.3 (28.2-33.3) pg MCHC 32.5 (31.7-36.0) g/dL RDW 13.6 (11.2-14.1) % Plt Count 197 (150-350) K/uL Neut % (Auto) 93.1 H (45.0-80.0) % Lymph % (Auto) 3.5 L (10.0-50.0) % [place] % (Auto) 3.3 (2.0-14.0) % Eos % (Auto) 0.0 (0.0-5.0) % Baso % (Auto) 0.1 (0.0-2.0) % Neut # (Auto) 9.25 H (1.40-7.00) K/uL Lymph # (Auto) 0.35 L (0.50-3.50) K/uL [place] # (Auto) 0.33 (0.00-1.00) K/uL Eos # (Auto) 0.00 (0.00-0.50) K/uL Baso # (Auto) 0.01 (0.00-0.20) K/uL ESR 45 H (0-30) mm/hr Sodium 142 (136-145) mmol/L Potassium 4.3 (3.5-5.1) mmol/L Chloride 106 (98-107) mmol/L Carbon Dioxide 28.2 (21.0-32.0) mmol/L BUN 12 (7-18) mg/dL Creatinine 0.66 (0.51-1.17) mg/dL Est Cr Clr Drug Dosing 87.05 mL/min Estimated GFR (MDRD) > 60 mL/min Glucose 139 H (74-106) mg/dL Calcium 9.2 (8.5-10.1) mg/dL Total Bilirubin 0.3 (0.2-1.0) mg/dL AST 23 (15-37) U/L ALT 22 (12-78) U/L Alkaline Phosphatase 85 (46-116) IU/L C-Reactive Protein 0.8 3.2 H (<=0.9) mg/dL Total Protein 6.7 (6.4-8.2) g/dL Albumin 3.0 L (3.4-5.0) g/dL Vitamin B12 903 (193-986) pg/mL Folate (8.6-58.9) ng/mL Free T4 1.64 H (0.76-1.46) ng/dL 06/23/18 Range/Units 06:45 WBC (4.0-10.2) K/uL RBC (3.77-5.09) M/uL Hgb (11.7-15.5) g/dL Hct (34.0-46.0) % MCV (84.0-98.0) fL MCH (28.2-33.3) pg MCHC (31.7-36.0) g/dL RDW (11.2-14.1) % Plt Count (150-350) K/uL Neut % (Auto) (45.0-80.0) % Lymph % (Auto) (10.0-50.0) % [place] % (Auto) (2.0-14.0) % Eos % (Auto) (0.0-5.0) % Baso % (Auto) (0.0-2.0) % Neut # (Auto) (1.40-7.00) K/uL Lymph # (Auto) (0.50-3.50) K/uL [place] # (Auto) (0.00-1.00) K/uL Eos # (Auto) (0.00-0.50) K/uL Baso # (Auto) (0.00-0.20) K/uL ESR (0-30) mm/hr Sodium (136-145) mmol/L Potassium (3.5-5.1) mmol/L Chloride (98-107) mmol/L Carbon Dioxide (21.0-32.0) mmol/L BUN (7-18) mg/dL Creatinine (0.51-1.17) mg/dL Est Cr Clr Drug Dosing mL/min Estimated GFR (MDRD) mL/min Glucose (74-106) mg/dL Calcium (8.5-10.1) mg/dL Total Bilirubin (0.2-1.0) mg/dL AST (15-37) U/L ALT (12-78) U/L Alkaline Phosphatase (46-116) IU/L C-Reactive Protein (<=0.9) mg/dL Total Protein (6.4-8.2) g/dL Albumin (3.4-5.0) g/dL Vitamin B12 (193-986) pg/mL Folate 23.4 (8.6-58.9) ng/mL Free T4 (0.76-1.46) ng/dL Med Orders - Current: Current Medications Albuterol (Proventil Neb Soln) 2.5 mg INH Q2H PRN PRN Reason: SHORTNESS OF BREATH Albuterol/Ipratropium (Duoneb 3.0-0.5 Mg/3 Ml) 3 ml NEB Q4HRRT PRN PRN Reason: Dyspnea Albuterol/Ipratropium (Duoneb 3.0-0.5 Mg/3 Ml) 3 ml NEB Q6HRRT [facility] Last Admin: 06/23/18 14:41 Dose: 3 ml Aspirin (Aspirin) 81 mg PO DAILY [facility] Last Admin: 06/23/18 08:32 Dose: 81 mg Azathioprine (Imuran) 50 mg PO BID [facility] Last Admin: 06/23/18 08:33 Dose: 50 mg Baclofen (Lioresal) 10 mg PO TID PRN PRN Reason: restless legs Celecoxib (Celebrex) 400 mg PO DAILY [facility] Last Admin: 06/23/18 08:31 Dose: 400 mg Clobetasol Propionate (Clobetasol Propionate 0.05%) 0 gm TOP BID PRN PRN Reason: Rash Fish Oil (Fish Oil) 1 gm PO DAILY [facility] Last Admin: 06/23/18 08:32 Dose: 1 gm Folic Acid (Folic Acid) 1 mg PO DAILY [facility] Last Admin: 06/23/18 08:31 Dose: 1 mg Hydrochlorothiazide (Hydrochlorothiazide) 12.5 mg PO DAILY [facility] Last Admin: 06/23/18 08:32 Dose: 12.5 mg Levothyroxine Sodium (Levothyroxine) 112 mcg PO ACBREAKFAST [facility] Last Admin: 06/23/18 08:31 Dose: 112 mcg Levothyroxine Sodium (Levothyroxine) 25 mcg PO ACBREAKFAST [facility] Last Admin: 06/23/18 08:30 Dose: 25 mcg Metoprolol Tartrate (Lopressor) 25 mg PO BID [facility] Last Admin: 06/23/18 08:31 Dose: 25 mg Mometasone Furoate/Formoterol Fumar (Dulera 100-5 Mcg) 2 puff IH Q12HR [facility] Last Admin: 06/23/18 08:33 Dose: 2 puff Non-Formulary Medication (Phentermine Hcl [Phentermine Hcl]) 37.5 mg PO DAILY [facility] Oxybutynin Chloride (Oxybutynin Er) 5 mg PO DAILY [facility] Last Admin: 06/23/18 08:32 Dose: 5 mg Potassium Chloride (Klor-Con 10) 20 meq PO BID [facility] Last Admin: 06/23/18 08:32 Dose: 20 meq Prednisone (Prednisone) 5 mg PO DAILY [facility] Last Admin: 06/23/18 08:32 Dose: 5 mg Pregabalin (Lyrica) 75 mg PO DAILY [facility] Last Admin: 06/23/18 08:33 Dose: 75 mg Pregabalin (Lyrica) 150 mg PO BEDTIME [facility] Last Admin: 06/22/18 20:23 Dose: 150 mg Sertraline HCl (Zoloft) 100 mg PO DAILY [facility] Last Admin: 06/23/18 08:31 Dose: 100 mg Discontinued Medications Enoxaparin Sodium (Lovenox) 40 mg SUBCUT ONETIME ONE Stop: 06/22/18 15:54 Last Admin: 06/22/18 16:12 Dose: Not Given Enoxaparin Sodium (Lovenox) 40 mg SUBCUT ONETIME ONE Stop: 06/22/18 18:01 Last Admin: 06/22/18 20:24 Dose: 40 mg Famotidine (Pepcid) 40 mg IVPUSH ONETIME ONE Stop: 06/22/18 15:21 Last Admin: 06/22/18 16:12 Dose: 40 mg Methylprednisolone Sodium Succinate (Solu-Medrol) 125 mg IVPUSH ONETIME ONE Stop: 06/22/18 15:20 Last Admin: 06/22/18 16:12 Dose: 125 mg
== END 2018-06-23 18:05 | disposition home or self-care (01) ==
LOC: LL.ED 12:24 → LL.MS 14:29
PROVIDERS: ADMIT Family Medicine; ATTEND Family Medicine
DX: G35 Multiple sclerosis (principal); I11.0 Hypertensive heart disease with heart failure; I50.9 Heart failure, unspecified; E78.00 Pure hypercholesterolemia, unspecified; E66.9 Obesity, unspecified; J44.9 Chronic obstructive pulmonary disease, unspecified; G47.30 Sleep apnea, unspecified; K59.09 Other constipation; E03.9 Hypothyroidism, unspecified; F32.9 Major depressive disorder, single episode, unspecified; F41.9 Anxiety disorder, unspecified; Z79.82 Long term (current) use of aspirin; Z79.899 Other long term (current) drug therapy; Z79.52 Long term (current) use of systemic steroids; Z79.1 Long term (current) use of non-steroidal anti-inflammatories (NSAID); Z79.51 Long term (current) use of inhaled steroids; I49.9 Cardiac arrhythmia, unspecified; I49.3 Ventricular premature depolarization; Z87.891 Personal history of nicotine dependence; Z68.42 Body mass index [BMI] 45.0-49.9, adult
CPT/HCPCS: 36415; 80053; 82607; 82746; 83605; 84439; 84443; 84481; 85025; 85652; 86140; 94640; 96372; 96374; 96375; 97162-GP; 97530-GP; 99285; A9270-GY; G0378; J1650; J2930; J3490; J7500; J7620-GY

== ENCOUNTER 2018-08-11 09:59 | Inpatient (IN) | payer BC ==
[2018-08-11] MEDS ORDERED: sulfaSALAzine 500 MG Tab PO PRN (14:02)
[2018-08-11] MEDS ORDERED: Clobetasol 0.05% Crm 15 GM Tube TOP PRN (14:02)
[2018-08-11] MEDS ORDERED: [UNRECOGNIZED DRUG - OTHER] TOP PRN (14:02)
[2018-08-11] MEDS ORDERED: Albuterol 8 GM Inhaler INH PRN (14:02)
[2018-08-11] MEDS: Albuterol/Ipratropium 3.0-0.5 MG/3 ML Neb Soln NEB SCH ×2 (17:36→20:17)
[2018-08-11] MEDS: Baclofen 10 MG Tab PO SCH (17:47)
[2018-08-11] MEDS: Potassium Chloride 10 MEQ Tab.ER PO SCH (17:48)
[2018-08-11] MEDS ORDERED: Potassium Chloride 20 MEQ Tab.ER PO SCH (18:00)
[2018-08-11] MEDS ORDERED: predniSONE 5 MG Tab PO SCH (18:15)
[2018-08-11] MEDS: Apixaban 2.5 MG Tab PO SCH (20:16)
[2018-08-11] MEDS: Nystatin Topical Powder 15 GM Bottle TOP SCH (20:16)
[2018-08-11] MEDS: Metoprolol Tartrate 25 MG Tab PO SCH (20:18)
[2018-08-11] MEDS: Pregabalin 75 MG Cap PO SCH (20:19)
[2018-08-11] MEDS: ALPRAZolam 0.25 MG Tab PO SCH (20:20)
[2018-08-11] MEDS: [UNRECOGNIZED DRUG - OTHER] SUBCUT SCH (20:33)
[2018-08-12] MEDS ORDERED: Hydrochlorothiazide 25 MG Tab PO SCH (08:00)
[2018-08-12] MEDS ORDERED: predniSONE 5 MG Tab PO SCH (08:00)
[2018-08-12] MEDS: Levothyroxine 150 MCG Tab PO SCH (08:11)
[2018-08-12] MEDS: CELECOXIB 200 MG PO SCH (08:11)
[2018-08-12] MEDS: Albuterol/Ipratropium 3.0-0.5 MG/3 ML Neb Soln NEB SCH ×3 (08:12→19:53)
[2018-08-12] MEDS: Cinnamon Bark [Cinnamon] 500 MG PO SCH (08:12)
[2018-08-12] MEDS: Apixaban 2.5 MG Tab PO SCH ×2 (08:14→17:21)
[2018-08-12] MEDS: Folic Acid 1 MG Tab PO SCH (08:17)
[2018-08-12] MEDS: Potassium Chloride 10 MEQ Tab.ER PO SCH ×2 (08:18→17:22)
[2018-08-12] MEDS: LIOTHYRONINE 5 MCG PO SCH (08:18)
[2018-08-12] MEDS: Baclofen 10 MG Tab PO SCH ×3 (08:18→17:22)
[2018-08-12] MEDS: Metoprolol Tartrate 25 MG Tab PO SCH ×2 (08:19→19:53)
[2018-08-12] MEDS: Pregabalin 75 MG Cap PO SCH ×2 (08:20→19:59)
[2018-08-12] MEDS: HYDROCHLOROTHIAZIDE 12.5 MG PO SCH (08:20)
[2018-08-12] MEDS: Nystatin Topical Powder 15 GM Bottle TOP SCH ×2 (08:21→17:23)
[2018-08-12] MEDS: Oxybutynin 5 MG Tab.ER PO SCH (08:21)
[2018-08-12] MEDS: PHENTERMINE HCL 37.5 MG PO SCH (08:22)
[2018-08-12] MEDS: SERTRALINE 100 MG PO SCH (08:22)
[2018-08-12] MEDS: Multivitamin Tab PO SCH (08:23)
--- NOTE | 2018-08-12 12:50 | PCM.HP ---
H&P History of Present Illness - General Date of Service: 08/11/18 Admit Problem/Dx: Admission Diagnosis/Problem Admission Diagnosis/Problem Acute postoperative pain Source of Information: Patient, Old Records History Limitations: Reports: No Limitations Left Hip Pain Score (Numeric/FACES): 2 - Related Data Allergies/Adverse Reactions: Allergies Allergy/AdvReac Type Severity Reaction Status Date / Time generic pain medication Allergy Vomiting Uncoded 11/15/14 23:34 Home Medications: Home Meds ALPRAZolam [Alprazolam] 0.25 mg PO BEDTIME 12/25/13 [History] Albuterol [Proventil HFA] 2 puff INH Q4HR PRN 12/25/13 [History] Baclofen 10 mg PO TID 12/25/13 [History] Clobetasol [Clobetasol Propionate 0.05% Cream] 1 applic TOP BID PRN 12/25/13 [ History] Folic Acid 1 mg PO DAILY 12/25/13 [History] Interferon Beta-1a w/Albumin [Rebif] 44 mcg SUBCUT MOWEFR@2100 12/25/13 [History ] Metoprolol Tartrate [Lopressor] 25 mg PO BID 12/25/13 [History] Multivitamin [Multi-Vitamin Daily] 1 tab PO DAILY 12/25/13 [History] Potassium Chloride 20 meq PO BID 12/25/13 [History] Sertraline [Zoloft] 100 mg PO DAILY 12/25/13 [History] azaTHIOprine [Azathioprine] 1 tab PO BID 12/25/13 [History] predniSONE [Prednisone] 5 mg PO DAILY 12/25/13 [History] traMADol [Ultram] 100 mg PO Q6HR PRN 12/25/13 [History] Celecoxib [CeleBREX] 400 mg PO DAILY 04/02/14 [History] hydroCHLOROthiazide [Hydrochlorothiazide] 12.5 mg PO DAILY 11/15/14 [History] Albuterol/Ipratropium [DuoNeb 3.0-0.5 MG/3 ML] 3 ml NEB Q6HR 06/22/18 [History] Cinnamon Bark [Cinnamon] 500 mg PO DAILY 06/22/18 [History] Fluticasone/Vilanterol [Breo Ellipta 100-25 MCG Inhalation Kit] 1 puff IH DAILY 06/22/18 [History] Liothyronine [Cytomel] 5 mcg PO DAILY 06/22/18 [History] Oxybutynin [Oxybutynin ER] 5 mg PO DAILY 06/22/18 [History] Phentermine HCl 37.5 mg PO DAILY 06/22/18 [History] Pregabalin [Lyrica] 75 mg PO DAILY 06/22/18 [History] Pregabalin [Lyrica] 150 mg PO BEDTIME 06/22/18 [History] Triamcinolone Acetonide [Kenalog 0.1% Crm] 1 applic TOP BID PRN 06/22/18 [ History] sulfaSALAzine 500 mg PO DAILY PRN 06/22/18 [History] Apixaban [Eliquis] 2.5 mg PO BID 08/11/18 [History] Levothyroxine 150 mcg PO ACBREAKFAST 08/11/18 [History] Nystatin [Nyamyc] 1 applic TOP BID 08/11/18 [History] Polyethylene Glycol 3350 [Miralax] 17 gm PO DAILY PRN 08/11/18 [History] Past Medical History HEENT History: Reports: Impaired Vision, Other (See Below) Other HEENT History: She wears glasses. Cardiovascular History: Reports: Arrhythmia, Heart Failure, High Cholesterol, Hypertension, Other (See Below) Other Cardiovascular History: PVCs. Dyslipidemia and obesity. Respiratory History: Reports: Asthma, Bronchitis, Recurrent, COPD, Intubation, Previous, Pneumonia, Recurrent, Pulmonary Fibrosis, Sleep Apnea, Other (See Below) Other Respiratory History: Sleep apnea and restless leg syndrome with patient noncompliant with her CPAP recently Gastrointestinal History: Reports: Cholelithiasis, Chronic Constipation, Diverticulosis, Gastritis, GERD, Hiatal Hernia, Other (See Below) Other Gastrointestinal History: Ventral abdominal hernias by CT scan. Genitourinary History: Reports: Hydronephrosis, Renal Calculus, Urinary Incontinence, Other (See Below) Other Genitourinary History: Sided urolithiasis on 10/22/12. Moderate right- sided hydronephrosis with additional urolithiasis with spontaneous passage on 12/25/13. [employer] History: Reports: Dysfunctional Uterine Bleeding, Polycystic Ovaries, Other OB/BYN History: Full term without complications during pregnancies or deliveries. Surgical menopause as below secondary to polycystic ovarian syndrome. 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 Small proximal avulsion fracture of the middle phalanx of digit #5 of the left hand with PIP dislocation on 11/05/14 with dislocation of the middle phalanx. Neurological History: Reports: Headaches, Chronic, MS, Neuropathy, Peripheral, Speech Problems, Vertigo, Other (See Below) Other Neuro History: Restless leg syndrome. Occasional dysarthria and vertigo/ dizziness secondary to her MS diagnosed on 10/18/06 by MRI as below. Psychiatric History: Reports: Addiction, Anxiety, Depression, Other (See Below) Other Psychiatric History: Intermittent Ultram use. 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 Hypokalemia. Hematologic History: Reports: Other (See Below) Other Hematologic History: Anemia after first . Immunologic History: Reports: None, Immunosuppression, Other (See Below) Other Immunologic History: Immunosuppression secondary to medical therapy for her MS. 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 Dermatologic History: Reports: Psoriasis - Infectious Disease History Infectious Disease History: Reports: Chicken Pox, Influenza (Influenza A on 04/02), Mononucleosis (Recurrent in her 30s), Rheumatic Fever (1994.). Denies: C- Difficile, Measles, Meningitis, MRSA, Mumps, Pertussis (Whooping Cough), Rubella , Scarlet Fever, Shingles, TB, VRE - Past Surgical History Head Surgeries/Procedures: Reports: None HEENT Surgical History: Reports: Oral Surgery, Other (See Below) Other HEENT Surgeries/Procedures: Multiple teeth extractions. Cardiovascular Surgical History: Reports: None Respiratory Surgical History: Reports: Other (See Below) Other Respiratory Surgeries/Procedures: Bronchoscopy at age 6 to remove a peanut. GI Surgical History: Reports: Bariatric Procedure, Cholecystectomy, Colonoscopy , Other (See Below) Other GI Surgeries/Procedures: Colonoscopy last in 2009. Gastric banding in 2008. Laparoscopic cholecystectomy in 2007. Female Surgical History: Reports: Breast Biopsy, D&C, Hysterectomy, Oophorectomy, Salpingo-Oophorectomy, Tubal Ligation, Other (See Below) Other Female Surgeries/Procedures: Lateral tubal ligation in 1987. D&C secondary to dysfunctional uterine bleeding on 10/06/95. Left-sided oophorectomy in April 1985. Laparoscopic assisted vaginal hysterectomy with concomitant right-sided salpingo-oophorectomy and posterior repair on 04/09/99. Endocrine Surgical History: Reports: None Musculoskeletal Surgical History: Reports: Other (See Below) Other Musculoskeletal Surgeries/Procedures:: Left arthroscopic knee surgery in the . Left TKA on 02/05/2000 with right TKA on 09/25/11. Left open knee surgery in 1975. Dermatological Surgical History: Reports: Skin Biopsy, Other (See Below) - Past Imaging History Past Imaging History: Reports: Angiography (Negative heart catheterization on 09/29/16.), Cardiac Echo (06/06/12 with ejection fraction of 55%.), CAT Scan (CT of the abdomen and pelvis on 12/25/13 and 10/22/12.), DEXA Scan (01/31/15), Mammogram ( Last mammogram on 01/07/17.), MRI (MRI of the lumbar spine on 03/03/18 and thoracic spine on 04/15/14. MRI of the Brain on 10/18/06 confirming MS.), PFT ( Last PFTs on 03/17/18.), Stress Testing (Borderline positive Lexiscan on 08/31/16. ), Ultrasound (Soft tissue ultrasound of the neck on 08/26/17.), Other (See Below ) (Multiple EMGs and nerve conduction studies last on 04/13/18. Visual evoked potential on 12/12/12.) Social & Family History - Family History HEENT: Reports: None Cardiac: Reports: Afib, AICD, Arrhythmia, Blood Clots/VTE/DVT, Bypass, CAD, High Cholesterol, Hypertension, MT, Pacemaker, Other (See Below) Other Cardiac Family History: Father with history of postoperative DVT of the leg after CABG. Father with initial MT at age 51 with three-vessel CABG. Subsequent MT, atrial fibrillation, and AICD/pacemaker placement at age 61. Patient with fatal MT/arrhythmia despite the ICD at age 70. Paternal grandmother with unknown type of fatal heart disease in her early 50s. Brother and father with hyperlipidemia. Mother with hypertension. Paternal aunt with mitral valve prolapse. Respiratory: Reports: COPD, Sleep Apnea Other Respiratory Family Hisory: Son with sleep apnea. Father with COPD with history of tobacco use. GI: Reports: Celiac Disease, Pancreatitis, Other (See Below) Other GI Family History: Mother with cholelithiasis and diverticulosis. Son with celiac disease. Sister with cholelithiasis and secondary pancreatitis. : Reports: Renal Calculus, Other (See Below) Other Family History: Brother with urolithiasis. OBGYN: Reports: None Musculoskeletal: Reports: Arthritis, Gout, Other (See Below) Other Musculoskeletal Family History: Son with gout. Neurological: Reports: Migraines, Seizure, Other (See Below) Other Neurological Family History: Son with migraine headaches. Sister with unknown type of seizure disorder. Psychiatric: Reports: Anxiety, Depression, Other (See Below) Other Psychiatric Family History: Son with anxiety depression disorder. Endocrine/Metabolic: Reports: Diabetes, type II, Hypothyroidism, IDDM, Other ( See Below) Other Endocrine/Metabolic Family History: Paternal aunt and Maternal grandfather with IDDM. Sister and mother with hypothyroidism. Hematologic: Reports: None Immunologic: Reports: None Dermatologic: Reports: None Oncologic: Reports: Lung, Skin, Other (See Below) Other Oncologic Family History: Paternal grandfather with fatal lung cancer at age 65 with history of tobacco use. Mother with squamous cell carcinoma. Father with basal cell carcinoma. Brother with melanoma. Maternal uncle with fatal pancreatic cancer in his 70s. - Tobacco Use Smoking Status *Q: Former Smoker Used Tobacco, but Quit: Yes Month/Year Tobacco Last Used: 34 years ago Tobacco Use Comment: Smokes about 34 years ago as stated by patient. 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.) H&P Review of Systems - Review of Systems: Review Of Systems: See Below General: Reports: No Symptoms HEENT: Reports: No Symptoms Pulmonary: Reports: No Symptoms Cardiovascular: Reports: No Symptoms Gastrointestinal: Reports: No Symptoms Genitourinary: Reports: No Symptoms Musculoskeletal: Reports: Joint Pain (left hip post operative pain) Skin: Reports: Bruising Psychiatric: Reports: No Symptoms Neurological: Reports: Difficulty Walking (using walker) Hematologic/Lymphatic: Reports: No Symptoms Immunologic: Reports: No Symptoms Exam - Exam Exam: See Below - Vital Signs Vital Signs: Last Vital Signs Temp 98.7 F 08/12/18 08:00 Pulse 89 08/12/18 08:19 Resp 20 08/12/18 08:00 BP 125/58 L 08/12/18 08:19 Pulse Ox 92 L 08/12/18 08:00 Weight: 309 lb 14.4 oz - Exam Quality Assessment: DVT Prophylaxis General: Alert, Cooperative HEENT: Conjunctiva Clear, Hearing Intact, Nares Patent Neck: Trachea Midline Lungs: Clear to Auscultation, Normal Respiratory Effort Cardiovascular: Regular Rate, Regular Rhythm GI/Abdominal Exam: Soft, Non-Tender, No Distention (Female) Exam: Deferred Rectal (Female) Exam: Deferred Back Exam: Normal Inspection Extremities: Non-Tender, Pedal Edema (minimal) Skin: Warm, Dry, Intact, Ecchymosis, Wound (healing well) Neurological: Strength Equal Bilateral, Normal Speech Neuro Extensive - Mental Status: Alert, Normal Mood/Affect, Normal Cognition Neuro Extensive - Motor, Sensory, Reflexes: Abnormal Gait Psychiatric: Alert, Normal Affect, Normal Mood *Q Meaningful Use (ADM) - VTE *Q VTE Mechanical Contraindications *Q: At Risk for Falls - Problem List (1) Orthopedic aftercare for joint replacement SNOMED Code(s): 797239810, 325145289 ICD Code: Z47.1 - AFTERCARE FOLLOWING JOINT REPLACEMENT SURGERY Status: Acute Priority: High Current Visit: Yes Qualifiers: Joint replacement surgery site: hip Laterality: left Qualified Code(s): Z47.1 - Aftercare following joint replacement surgery; Z96.642 - Presence of left artificial hip joint (2) Asthma SNOMED Code(s): 929658773 ICD Code: J45.909 - UNSPECIFIED ASTHMA, UNCOMPLICATED Status: Acute Current Visit: No (3) COPD (chronic obstructive pulmonary disease) SNOMED Code(s): 90360648 ICD Code: J44.9 - CHRONIC OBSTRUCTIVE PULMONARY DISEASE, UNSPECIFIED Status : Chronic Priority: Medium Current Visit: No Problem Details: No recent fever or bronchitic type symptoms. Stable by history. (4) Hypertension SNOMED Code(s): 00495335 ICD Code: I10 - ESSENTIAL (PRIMARY) HYPERTENSION Status: Chronic Priority : Medium Current Visit: No Qualifiers: (5) Hypothyroidism (acquired) SNOMED Code(s): 199758105 ICD Code: E03.9 - HYPOTHYROIDISM, UNSPECIFIED Status: Chronic Priority: High Current Visit: No Problem Details: She does follow closely with [facility]. (6) Mixed anxiety depressive disorder SNOMED Code(s): 527563661 ICD Code: F41.8 - OTHER SPECIFIED ANXIETY DISORDERS Status: Chronic Priority: Medium Current Visit: No (7) Multiple sclerosis SNOMED Code(s): 83782695 ICD Code: G35 - MULTIPLE SCLEROSIS Status: Chronic Priority: High Current Visit: No Problem Details: Progressive weakness secondary to her MS during the last couple of months as above. Minor fall today with no significant injury. One dose of IV Solu-Medrol to be given shortly after admission with further neurology consultation, medication changes, etc. depending on her clinical course. She was strongly advised to continue her physical therapy including during the winter months. 06/23/18 She does follow closely with [facility], rheumatology, orthopedic surgeon, pain clinic, and endocrinology. (8) Obesity (BMI 35.0-39.9 without comorbidity) SNOMED Code(s): 983424890, 905258210 ICD Code: E66.9 - OBESITY, UNSPECIFIED Status: Chronic Priority: Medium Current Visit: No Problem Details: Persistent obesity despite gastric lap banding as above. Weight loss in moderation advisable. (9) Osteoarthritis SNOMED Code(s): 202117058 ICD Code: M19.90 - UNSPECIFIED OSTEOARTHRITIS, UNSPECIFIED SITE Status: Chronic Priority: Medium Current Visit: No Problem Details: Stable chronic low back pain by history with no significant injury from fall as above. Problem List Initiated/Reviewed/Updated: Yes Orders Last 24hrs: Active Orders 24 hr Category Date Time Status Patient Status [ADT] Routine ADT 08/11/18 13:41 Active Ambulate [RC] ASDIRECTED Care 08/11/18 13:46 Active Communication Order [RC] DAILY Care 08/11/18 14:52 Active Communication Order [RC] DAILY Care 08/11/18 14:57 Active Communication Order [RC] Q3D Care 08/14/18 08:00 Active Communication Order [RC] Q6HR Care 08/11/18 14:46 Active Communication Order [RC] ROUTINE Care 08/11/18 14:13 Active Height and Weight [RC] MO Care 08/11/18 13:50 Active May Shower [RC] ASDIRECTED Care 08/11/18 13:46 Active VTE/DVT Education [RC] PER UNIT ROUTINE Care 08/11/18 13:41 Active Vital Signs [RC] DAILY Care 08/11/18 13:41 Active Consult to Case Management/Certified Recreational Therapist [CONS] Cons 08/11/18 13:46 Active Routine OT Evaluation and Treatment [CONS] Routine Cons 08/11/18 13:46 Active PT Evaluation and Treatment [CONS] Routine Cons 08/11/18 13:46 Active Regular Diet [DIET] Diet 08/11/18 Dinner Active ALPRAZolam [Xanax] Med 08/11/18 20:00 Active 0.25 mg PO BEDTIME Albuterol [Ventolin HFA] Med 08/11/18 14:02 Active 0 gm INH Q4HR PRN Albuterol/Ipratropium [DuoNeb 3.0-0.5 MG/3 ML] Med 08/12/18 20:00 Ordered 3 ml NEB BIDRT Apixaban [Eliquis] Med 08/11/18 18:00 Active 2.5 mg PO BID Baclofen [Lioresal] Med 08/11/18 18:00 Active 10 mg PO TID Celecoxib [CeleBREX] Med 08/12/18 08:00 Active 400 mg PO DAILY Cinnamon Bark [Cinnamon] Med 08/12/18 08:00 Active 500 mg PO DAILY Clobetasol [Clobetasol Propionate 0.05%] Med 08/11/18 14:02 Active 0 gm TOP BID PRN Fluticasone/Vilanterol [Breo Ellipta 100-25 MCG Med 08/12/18 08:00 Active Inhalation Kit] 1 puff IH DAILY Folic Acid Med 08/12/18 08:00 Active 1 mg PO DAILY Interferon Beta-1a w/Albumin [Rebif] Med 08/11/18 21:00 Active 44 mcg SUBCUT MOWEFR@2100 Levothyroxine Med 08/12/18 07:30 Active 150 mcg PO ACBREAKFAST Liothyronine [Cytomel] Med 08/12/18 08:00 Active 5 mcg PO DAILY Metoprolol Tartrate [Lopressor] Med 08/11/18 20:00 Active 25 mg PO Q12HR Multivitamins [Tab-A-Renate] Med 08/12/18 08:00 Active 1 tab PO DAILY Non-Formulary Medication [NF Drug] Med 08/12/18 08:00 Active 1 each PO DAILY Nystatin [Nystop] Med 08/11/18 18:00 Active 0 gm TOP BID Oxybutynin [Oxybutynin ER] Med 08/12/18 08:00 Active 5 mg PO DAILY Phentermine HCl [Phentermine HCl] Med 08/12/18 08:00 Active 37.5 mg PO DAILY Polyethylene Glycol 3350 [MiraLAX] Med 08/11/18 14:02 Active 17 gm PO DAILY PRN Potassium Chloride [Klor-Con 10] Med 08/11/18 18:00 Active 20 meq PO BID Pregabalin [Lyrica] Med 08/11/18 20:00 Active 150 mg PO BEDTIME Pregabalin [Lyrica] Med 08/12/18 08:00 Active 75 mg PO DAILY Sertraline [Zoloft] Med 08/12/18 08:00 Active 100 mg PO DAILY Triamcinolone Acetonide Med 08/11/18 14:02 Active 1 applic TOP BID PRN azaTHIOprine [Imuran] Med 08/11/18 18:00 Active 50 mg PO BID predniSONE Med 08/12/18 12:45 Ordered 5 mg PO DAILY@1200 predniSONE Med 08/11/18 18:15 Stop Req 5 mg PO DAILY@1800 sulfaSALAzine Med 08/11/18 14:02 Active 500 mg PO DAILY PRN traMADol [Ultram] Med 08/11/18 14:02 Active 100 mg PO Q6HR PRN Resuscitation Status Routine Resus Stat 08/11/18 13:40 Ordered Medication Orders Albuterol (Ventolin Hfa) 0 gm INH Q4HR PRN PRN Reason: sob Albuterol/Ipratropium (Duoneb 3.0-0.5 Mg/3 Ml) 3 ml NEB BIDRT STAN Alprazolam (Xanax) 0.25 mg PO BEDTIME STAN Last Admin: 08/11/18 20:20 Dose: 0.25 mg Apixaban (Eliquis) 2.5 mg PO BID STAN Stop: 09/12/18 18:01 Last Admin: 08/12/18 08:14 Dose: 2.5 mg Admin: 08/11/18 20:16 Dose: 2.5 mg Azathioprine (Imuran) 50 mg PO BID [facility] Last Admin: 08/12/18 08:17 Dose: 50 mg Admin: 08/11/18 17:48 Dose: 50 mg Baclofen (Lioresal) 10 mg PO TID [facility] Last Admin: 08/12/18 12:05 Dose: 10 mg Admin: 08/12/18 08:18 Dose: 10 mg Admin: 08/11/18 17:47 Dose: 10 mg Clobetasol Propionate (Clobetasol Propionate 0.05%) 0 gm TOP BID PRN PRN Reason: Rash Folic Acid (Folic Acid) 1 mg PO DAILY [facility] Last Admin: 08/12/18 08:17 Dose: 1 mg Levothyroxine Sodium (Levothyroxine) 150 mcg PO ACBREAKFAST [facility] Last Admin: 08/12/18 08:11 Dose: 150 mcg Metoprolol Tartrate (Lopressor) 25 mg PO Q12HR [facility] Last Admin: 08/12/18 08:19 Dose: 25 mg Admin: 08/11/18 20:18 Dose: 25 mg Multivitamins/Minerals/Vitamin C (Tab-A-Renate) 1 tab PO DAILY [facility] Last Admin: 08/12/18 08:23 Dose: 1 tab Celecoxib [Celebrex] (200mg Capsules) 400 mg PO DAILY [facility] Last Admin: 08/12/18 08:11 Dose: 400 mg Cinnamon Bark [ (Cinnamon] 500 Mg) 500 mg PO DAILY [facility] Last Admin: 08/12/18 08:12 Dose: 500 mg Fluticasone/Vilanterol [Breo Ellipta 100-25 Mcg Inhalatio 1 puff IH DAILY [facility] Last Admin: 08/12/18 08:14 Dose: 1 puff Interferon Beta-1a W /Albumin [Rebif] 44 Mcg Injection 44 mcg SUBCUT MOWEFR@ 2100 [facility] Last Admin: 08/11/18 20:33 Dose: 44 mcg Liothyronine [ (Cytomel] 5 Mcg Tabs) 5 mcg PO DAILY [facility] Last Admin: 08/12/18 08:18 Dose: 5 mcg Phentermine Hcl [ Phentermine Hcl] 37. 5 Mg 37.5 mg PO DAILY [facility] Last Admin: 08/12/18 08:22 Dose: 37.5 mg Sertraline [Zoloft] (100 Mg Tablets) 100 mg PO DAILY [facility] Last Admin: 08/12/18 08:22 Dose: 100 mg Triamcinolone (Acetonide In Orabase) 1 applic TOP BID PRN PRN Reason: Canker Sore Hydrochlorothiazide (12.5mg Tablets) 1 each PO DAILY [facility] Last Admin: 08/12/18 08:20 Dose: 1 each Nystatin (Nystop) 0 gm TOP BID [facility] Last Admin: 08/12/18 08:21 Dose: 1 applic Admin: 08/11/18 20:16 Dose: 1 applic Oxybutynin Chloride (Oxybutynin Er) 5 mg PO DAILY [facility] Last Admin: 08/12/18 08:21 Dose: 5 mg Polyethylene Glycol (Miralax) 17 gm PO DAILY PRN PRN Reason: Constipation Potassium Chloride (Klor-Con 10) 20 meq PO BID [facility] Last Admin: 08/12/18 08:18 Dose: 20 meq Admin: 08/11/18 17:48 Dose: 20 meq Prednisone (Prednisone) 5 mg PO DAILY@1800 [facility] Last Admin: 08/11/18 18:52 Dose: 5 mg Pregabalin (Lyrica) 75 mg PO DAILY [facility] Last Admin: 08/12/18 08:20 Dose: 75 mg Pregabalin (Lyrica) 150 mg PO BEDTIME [facility] Last Admin: 08/11/18 20:19 Dose: 150 mg Sulfasalazine (Sulfasalazine) 500 mg PO DAILY PRN PRN Reason: Abdominal Pain Tramadol HCl (Ultram) 100 mg PO Q6HR PRN PRN Reason: Moderate Pain Assessment/Plan Comment:: 08/11/18 (late entry) Arsen Oropeza MD S/P left total hip replacement. Here in [facility] swing bed status for PT-OT for strengthening, and improve function with ADLs.
[2018-08-12] MEDS: Acetaminophen 325 MG Tab PO PRN ×2 (14:08→20:02)
[2018-08-12] MEDS: predniSONE 5 MG Tab PO SCH (14:08)
[2018-08-12] MEDS: ALPRAZolam 0.25 MG Tab PO SCH (20:01)
[2018-08-13] MEDS: Levothyroxine 150 MCG Tab PO SCH (08:28)
[2018-08-13] MEDS: CELECOXIB 200 MG PO SCH (08:28)
[2018-08-13] MEDS: Albuterol/Ipratropium 3.0-0.5 MG/3 ML Neb Soln NEB SCH ×2 (08:30→19:37)
[2018-08-13] MEDS: Apixaban 2.5 MG Tab PO SCH ×2 (08:31→18:05)
[2018-08-13] MEDS: Folic Acid 1 MG Tab PO SCH (08:33)
[2018-08-13] MEDS: Potassium Chloride 10 MEQ Tab.ER PO SCH ×2 (08:33→18:06)
[2018-08-13] MEDS: Cinnamon Bark [Cinnamon] 500 MG PO SCH (08:34)
[2018-08-13] MEDS: Baclofen 10 MG Tab PO SCH ×3 (08:34→18:06)
[2018-08-13] MEDS: LIOTHYRONINE 5 MCG PO SCH (08:35)
[2018-08-13] MEDS: Metoprolol Tartrate 25 MG Tab PO SCH ×2 (08:36→19:43)
[2018-08-13] MEDS: HYDROCHLOROTHIAZIDE 12.5 MG PO SCH (08:36)
[2018-08-13] MEDS: Oxybutynin 5 MG Tab.ER PO SCH (08:37)
[2018-08-13] MEDS: Multivitamin Tab PO SCH (08:39)
[2018-08-13] MEDS: SERTRALINE 100 MG PO SCH (08:39)
[2018-08-13] MEDS: PHENTERMINE HCL 37.5 MG PO SCH (08:41)
[2018-08-13] MEDS: Pregabalin 75 MG Cap PO SCH ×2 (08:42→19:44)
[2018-08-13] MEDS: Nystatin Topical Powder 15 GM Bottle TOP SCH ×2 (08:42→18:07)
[2018-08-13] MEDS: predniSONE 5 MG Tab PO SCH (11:46)
[2018-08-13] MEDS: ALPRAZolam 0.25 MG Tab PO SCH (19:45)
[2018-08-13] MEDS: Acetaminophen 325 MG Tab PO PRN (19:46)
[2018-08-13] MEDS: traMADol 50 MG Tab PO PRN (22:54)
[2018-08-14] MEDS: Levothyroxine 150 MCG Tab PO SCH (08:21)
[2018-08-14] MEDS: CELECOXIB 200 MG PO SCH (08:22)
[2018-08-14] MEDS: Albuterol/Ipratropium 3.0-0.5 MG/3 ML Neb Soln NEB SCH ×2 (08:23→19:41)
[2018-08-14] MEDS: Cinnamon Bark [Cinnamon] 500 MG PO SCH (08:23)
[2018-08-14] MEDS: Folic Acid 1 MG Tab PO SCH (08:24)
[2018-08-14] MEDS: Potassium Chloride 10 MEQ Tab.ER PO SCH ×2 (08:25→17:24)
[2018-08-14] MEDS: Baclofen 10 MG Tab PO SCH ×3 (08:26→17:24)
[2018-08-14] MEDS: LIOTHYRONINE 5 MCG PO SCH (08:26)
[2018-08-14] MEDS: Metoprolol Tartrate 25 MG Tab PO SCH ×2 (08:27→19:41)
[2018-08-14] MEDS: HYDROCHLOROTHIAZIDE 12.5 MG PO SCH (08:28)
[2018-08-14] MEDS: Nystatin Topical Powder 15 GM Bottle TOP SCH ×2 (08:28→17:25)
[2018-08-14] MEDS: Multivitamin Tab PO SCH (08:29)
[2018-08-14] MEDS: Oxybutynin 5 MG Tab.ER PO SCH (08:29)
[2018-08-14] MEDS: SERTRALINE 100 MG PO SCH (08:30)
[2018-08-14] MEDS: Pregabalin 75 MG Cap PO SCH ×2 (08:31→19:44)
[2018-08-14] MEDS: Apixaban 2.5 MG Tab PO SCH ×2 (08:31→17:23)
[2018-08-14] MEDS: PHENTERMINE HCL 37.5 MG PO SCH (08:32)
[2018-08-14] MEDS: Acetaminophen 325 MG Tab PO PRN ×2 (08:36→14:23)
[2018-08-14] MEDS: traMADol 50 MG Tab PO PRN (09:26)
[2018-08-14] MEDS: predniSONE 5 MG Tab PO SCH (11:48)
[2018-08-14] MEDS: ALPRAZolam 0.25 MG Tab PO SCH (19:43)
[2018-08-14] MEDS: [UNRECOGNIZED DRUG - OTHER] SUBCUT SCH (20:34)
[2018-08-15] MEDS: CELECOXIB 200 MG PO SCH (08:12)
[2018-08-15] MEDS: Levothyroxine 150 MCG Tab PO SCH (08:12)
[2018-08-15] MEDS: Cinnamon Bark [Cinnamon] 500 MG PO SCH (08:12)
[2018-08-15] MEDS: Albuterol/Ipratropium 3.0-0.5 MG/3 ML Neb Soln NEB SCH ×2 (08:13→19:34)
[2018-08-15] MEDS: Apixaban 2.5 MG Tab PO SCH ×2 (08:13→17:31)
[2018-08-15] MEDS: LIOTHYRONINE 5 MCG PO SCH (08:17)
[2018-08-15] MEDS: Folic Acid 1 MG Tab PO SCH (08:18)
[2018-08-15] MEDS: Baclofen 10 MG Tab PO SCH ×3 (08:19→17:32)
[2018-08-15] MEDS: Potassium Chloride 10 MEQ Tab.ER PO SCH ×2 (08:19→17:31)
[2018-08-15] MEDS: Metoprolol Tartrate 25 MG Tab PO SCH ×2 (08:19→19:35)
[2018-08-15] MEDS: Pregabalin 75 MG Cap PO SCH ×2 (08:20→19:36)
[2018-08-15] MEDS: HYDROCHLOROTHIAZIDE 12.5 MG PO SCH (08:21)
[2018-08-15] MEDS: Nystatin Topical Powder 15 GM Bottle TOP SCH ×2 (08:22→17:32)
[2018-08-15] MEDS: Oxybutynin 5 MG Tab.ER PO SCH (08:22)
[2018-08-15] MEDS: PHENTERMINE HCL 37.5 MG PO SCH (08:23)
[2018-08-15] MEDS: SERTRALINE 100 MG PO SCH (08:23)
[2018-08-15] MEDS: Multivitamin Tab PO SCH (08:24)
[2018-08-15] MEDS ORDERED: Trolamine Salicylate/Aloe Vera 10% Crm 85 GM Tube TOP PRN (08:39)
[2018-08-15] MEDS: Acetaminophen 325 MG Tab PO PRN (11:25)
[2018-08-15] MEDS: predniSONE 5 MG Tab PO SCH (11:27)
[2018-08-15] MEDS: Polyethylene Glycol 3350 Powder 510 GM Bot PO PRN (11:28)
--- OUTSIDE RECORDS SUMMARY | 2018-08-15 12:28 | XMSREPORT | Summary of Care ---
:1955 Author Organization [facility] Address [address] [place] [address] Care Team Providers Name Role Phone [facility] Unavailable Unavailable Arsen-Isabell Oropeza MD Primary Care Provider Provider, No Attributed RESOURCE Attributed Provider Unavailable Reason for Visit Reason Comments Auth/Cert (Routine) Status Reason Specialty Diagnoses / Procedures Referred By Contact Referred To Contact Diagnoses Unilateral primary osteoarthritis, unspecified hip Yonathan Garcia, Procedures ARTHROPLASTY ACETABULAR PROXIMAL FEMORAL PROSTHETIC REPLACE SAM BRAVO MD [address] [place] [address] Encounter Details Date Type Department Care Team Description 08/08/2018 [facility] 08/11/[address] MD Yonathan replacement of left [address] [place] [address] [place], [place] [phone] [id number] Allergies Active Allergy Reactions Severity Noted Date Comments Other: See Comments Nausea and Vomiting 10/05/2011 Pt states she doesn't want to be prescribed any generic pain medications, they make her sick. (GI) documented as of this encounter (statuses as of 08/11/2018) Medications Medication Sig Dispensed Refills Start End Status Date Date Multiple Vitamin Take 1 tablet by 0 Active (MULTIVITAMIN PO) mouth 1 time per day. sertraline (ZOLOFT) Take 100 mg by 0 Active 100 mg tablet mouth 1 time per day metoprolol tartrate Take 25 mg by 0 Active (LOPRESSOR) 25 mg mouth 2 times a 014 tablet day. triamcinolone (KENALOG Apply twice a day 3 Tube 0 Active IN ORABASE) 0.1 % to canker sores 016 pasteIndications: Cold sore CINNAMON PO Take 1 capsule by 0 Active mouth 1 time per day clobetasol propionate Apply to affected 3 Tube 1 Active (TEMOVATE) 0.05 % area 2 times a 018 creamIndications: day Psoriasis albuterol-ipratropium Inhale 1 1080 mL 4 2 08/17/ Active (DUO-NEB) 2.5-0.5 mg/3 unit-dose (3 mL) 018 2019 mL inhalation by nebulization solutionIndications: Every 6 hours Cough hydroCHLOROthiazide Take 1 tablet 30 tablet 0 Active 12.5 mg (12.5 mg) by 018 tabletIndications: mouth 1 time per Hypertension, day unspecified type potassium chloride Take 2 tablets 60 tablet 0 Active (K-TAB) 10 mEq CR (20 mEq) by mouth 018 tabletIndications: 2 times a day Hypokalemia phentermine (ADIPEX-P) Take 1 tablet 36 tablet 0 Active 37.5 MG (37.5 mg) by 019 tabletIndications: mouth 1 time a Morbid obesity with day in the BMI of 50.0-59.9, morning adult (HCC) folic acid 1 mg Take 1 tablet (1 90 tablet 3 Active tabletIndications: mg) by mouth 1 019 Myositis, unspecified time per day myositis type, unspecified site azaTHIOprine (IMURAN) Take 1 tablet (50 180 tablet 0 Active 50 MG mg) by mouth 2 019 tabletIndications: times a day Polymyositis (HCC), Encounter for long-term (current) use of high-risk medication celecoxib (CELEBREX) Take 2 capsules 180 capsule 1 Active 200 mg (400 mg) by mouth 019 capsuleIndications: 1 time per day Psoriasis predniSONE 5 mg Take 1 tablet (5 90 tablet 1 Active tabletIndications: mg) by mouth 1 019 Antisynthetase time per day syndrome (HCC) albuterol HFA Inhale 2 puffs 1 Inhaler 11 Active (PROVENTIL,PROAIR,VENT orally Every 4 019 HUMBERTO) 108 (90 Base) hours as needed MCG/ACT for shortness of inhalerIndications: breath, wheezing Mild persistent asthma or cough Shake without complication well before using. fluticasone-vilanterol Inhale 1 puff 3 Inhaler 4 05/30/ Active (BREO ELLIPTA) 100-25 orally 1 time per 019 2020 mcg/puff day Rinse mouth inhalerIndications: after use. Mild persistent asthma without complication liothyronine (CYTOMEL) Take 1 tablet (5 90 tablet 0 Active 5 MCG TABSIndications: mcg) by mouth 1 019 Primary hypothyroidism time per day interferon beta-1a INJECT CONTENTS 12 syringe 2 Active (REBIF) 44 mcg/0.5 mL OF ONE SYRINGE 019 (44 mcg/0.5 mL) SUBCUTANEOUSLY 3 injection TIMES A WEEK . solutionIndications: STORE IN FRIDGE Multiple sclerosis (HCC) baclofen (LIORESAL) 10 One tab 3x a day 270 tablet 0 Active mg tabletIndications: 019 Spasm of muscle oxybutynin Take 1 tablet (5 90 tablet 0 Active (DITROPAN-XL) 5 mg SR mg) by mouth 1 019 tablet (24 time per day hr)Indications: Bladder dysfunction sulfaSALAzine Take 500 mg by 0 Active (AZULFIDINE) 500 mg mouth as needed tablet for other (Specify) levothyroxine 150 mcg Take once daily 90 tablet 0 Active tabletIndications: on empty stomach, 019 Primary hypothyroidism separate from vitamins, supplements, calcium. ALPRAZolam (XANAX) TAKE 1 TABLET BY 90 tablet 0 07/17/ Active 0.25 mg MOUTH EVERY NIGHT 019 tabletIndications: AT BEDTIME Anxiety pregabalin (LYRICA) 75 Take one tab in 21 capsule 0 2 Active mg capsuleIndications: am and two tabs 019 Nerve pain, at night Fibromyalgia syndrome traMADol (ULTRAM) 50 Take 2 tablets 20 tablet 0 Active mg tabletIndications: (100 mg) by mouth 019 Status post total every 6 hours as replacement of left needed for hip moderate pain apixaban (ELIQUIS) 2.5 Take 1 tablet 65 tablet 0 08/11/2 09/13/ Active MG tabletIndications: (2.5 mg) by mouth 2018 Prophylaxis of DVT in 2 times a day Orthopedic Surgery Indications: Prophylaxis of Deep Vein Thrombosis in Orthopedic Surgery nystatin (NYAMYC) Apply topically 2 1 Bottle 0 Active 371519 UNIT/GM times a day 019 powderIndications: Status post total replacement of left hip polyethylene glycol Take 3 1 Bottle 0 Active (MIRALAX) teaspoonsful ( powderIndications: g) by mouth 1 Status post total time a day as replacement of left needed for hip constipation [place]-3 Fatty Acids Take 1 tablet by 0 08/11/ Discontinued (FISH OIL PO) mouth 1 time per 2018 day aspirin 81 mg enteric Take 81 mg by 30 tablet 0 2 08/11/ Discontinued coated tablet mouth 1 time a 2018 day in the evening Clif, Zingiber Take 1 tablet by 0 08/11/ Discontinued officinalis, (CLIF mouth 1 time per 2018 ROOT PO) day diclofenac (SOLARAZE) as needed 1 08/08/ Discontinued 3% gel 2018 acetaminophen-codeine Take 1 tablet by 60 tablet 1 11/21/2 Discontinued #3 (TYLENOL #3) 300-30 mouth 2 times a 018 2019 mg tabletIndications: day as needed for Antisynthetase moderate pain syndrome (HCC), Trochanteric bursitis, left hip ketoconazole (NIZORAL) Apply to affected 2 2 08/08/ Discontinued 2 % cream area 3 times a 2018 day as needed Beclomethasone Inhale 1 puff 0 08/07/ Discontinued Dipropionate (QVAR orally 1 time per 2019 INH) day documented as of this encounter (statuses as of 08/11/2018) Active Problems Problem Noted Date Acute blood loss anemia 08/09/2018 Status post total replacement of left hip 08/08/2018 Morbid obesity with BMI of 50.0-59.9, adult 02/22/2018 Abnormal stress test 09/23/2016 LAP-BAND surgery status 03/02/2016 Obesity, morbid, BMI 40.0-49.9 03/02/2016 TORSTEN (obstructive sleep apnea) 01/15/2016 Immunosuppression 01/15/2016 Fibromyalgia syndrome 01/15/2016 Essential hypertension 01/15/2016 Primary hypothyroidism 01/15/2016 Mild persistent asthma without complication 12/17/2015 Primary osteoarthritis of both shoulders 07/06/2015 Bilateral shoulder pain 07/06/2015 Antisynthetase syndrome 07/17/2014 Myopia 02/14/2014 Astigmatism 02/14/2014 Presbyopia 02/14/2014 Myositis 12/05/2012 Osteoarthrosis, unspecified whether generalized or localized, involving 2011 lower leg Multiple sclerosis 04/05/2011 documented as of this encounter (statuses as of 08/11/2018) Resolved Problems Problem Noted Date Resolved Date Encounter for long-term (current) use of other high-risk 07/06/20152015 medications COPD, mild 12/07/2012 12/17/2015 Bilateral leg weakness 09/25/2012 02/08/2017 Headache(784.0) 03/14/2012 02/08/2017 Encounter for long-term (current) use of other medications 04/05/20112016 documented as of this encounter (statuses as of 08/11/2018) Immunizations Name Dates Previously Given Next Due FLU VACCINE 03/18/2015 MULTIDOSE(3YR+Fluzone/6MO+Flulaval,5YR+Afluria) FLU VACCINE SINGLE 03/17/2018 DOSE(3YR+Fluzone,6MO+Flulaval/Fluarix,5YR+Afluria) FLU VACCINE TRIVALENT MULTIDOSE(Fluvirin,Afluria) 03/09/2013 Methylpred Acetate AQ 40 mg/ml 12/14/2013 Pneumococcal Polysaccharide PPSV23 03/18/2015 TDAP 02/15/2012, 08/27/2010 documented as of this encounter Social History Tobacco Use Types Packs/Day Years Used Date Former Smoker 1 10 Quit: 10/06/1979 Smokeless Tobacco: Never Used Comments: no smoking for 33 years Alcohol Use Drinks/Week oz/Week Comments Yes 0.0 Alcohol Habits Answer Date Recorded How often do you have a drink containing alcohol? Monthly or less 07/26/2018 How many drinks containing alcohol do you have on a 1 or 2 07/26/2018 typical day when you are drinking? How often do you have six or more drinks on one Never 07/26/2018 occasion? Sex Assigned at Date Recorded Female 05/08/2018 2:23 PM [employer] Job Start Date Occupation Industry Not on file Not on file Not on file Travel History Travel Start Travel End No recent travel history available. documented as of this encounter Last Filed Vital Signs Vital Sign Reading Time Taken Blood Pressure 121/81 08/11/2018 7:41 AM CDT Pulse 61 08/11/2018 7:41 AM CDT Temperature 36.4 C (97.6 F) 08/11/2018 7:41 AM CDT Respiratory Rate 16 08/11/2018 7:41 AM CDT Oxygen Saturation 95% 08/11/2018 7:41 AM CDT Inhaled Oxygen Concentration - - Weight 136 kg (299 lb 13.2 oz) 08/08/2018 10:53 AM CDT Height 167.6 cm (5' 5.98") 08/08/2018 10:53 AM CDT Body Mass Index 48.42 08/08/2018 10:53 AM CDT documented in this encounter Functional Status Functional Status Response Date of Assessment Is the person deaf or does he/she have No 07/26/2018 serious difficulty hearing? Is this person blind or does he/she have No 07/26/2018 difficulty seeing even when wearing glasses? Do you have difficulty with walking, balance, Yes 08/08/2018 climbing stairs, or had a fall in the last 3 months? Does the patient have difficulty dressing or No 07/26/2018 bathing? Because of a physical, mental, or emotional Yes - limited by hip 07/26/2018 condition; does this person have difficulty doing errands alone such as visiting a doctor's office or shopping? Cognitive Status Response Date of Assessment Because of a physical, mental, or emotional condition; No 07/26/2018 does this person have serious difficulty concentrating, remembering, or making decisions? documented as of this encounter Discharge Instructions Reba Root RN - 08/11/2018Reviewed "Orthopedic Discharge Education Guidelines" and "Pain management after You are Discharged" documents with patient. Paper copies were attached to AVS for patient to use as a reference for follow up questions. Preventing Blood Clots (Deep Vein Thrombosis) In the days and weeks after surgery, you have a higher chance of developing a deep vein thrombosis (DVT). This is a condition in which a blood clot or thrombus develops in a deep vein. They are most common in the leg. But, a DVT may develop in an arm, or another deep vein in the body. A piece of the clot, called an embolus, can separate from the vein and travel to the lungs. A blood clot in the lungsis called a pulmonary embolus (PE). This can cut off the flow of blood. It is a medical emergency and may cause . Deep vein thrombosis can occur even after you go home. Follow all instructions from your health careprovider. The following are some general guidelines about DVT prevention: Anticoagulant medication. If an anticoagulant was prescribed, make sure you follow all directionsabout taking it. Be sure you know what foods and medicines may interact. Also, ask your health care provider what to do if you forget to take a dose. Compression stockings. Your health care provider will tell you how often to wear and remove the stockings. Follow all instructions closely. Each time you remove your stockings, check your legs and feet for reddened areas or sores. If you see any changes, call your health care provider right away. Returning to activity. Follow all instructions about returning to activities. Be as active as youcan. This improves blood flow and helps prevent a clot from forming. When in bed or in a chair, continue with the ankle exercises you did in the hospital. Elevate your extremity above the level of yourheart to help prevent swelling. documented in this encounter Progress Notes Brittaney Hair PA-C - 08/11/2018 7:06 AM CDT Orthopedic Daily Progress Note: Assessment: Bárbara Matthew is a 62yr old female 3 Days Post-Op, S/P: Procedure(s): LEFT TOTAL HIP ARTHROPLASTY Subjective: She is doing well, sleeping very soundly before visit. Pain is well controlled on oral medications. Feels she is ready to go to TCU in [place]. Patient has had good appetite, urinating without difficulty, positive flatus but no bowel movement since surgery. Patient is aware that nursing staff has medication to help with constipation, and will ask nursing staff for another dose after visit.Patient would like to have a bowel movement before getting transferred to TCU. Objective: Current Vital Signs Temp: 97.7 F (36.5 C) BP: 110/55 Pulse: 77 O2 Device: Room Air O2 Flow Rate (L/min): 2 l/min Resp: 16 Pain Ratin (out of 10) Weight: 136 kg (299 lb 13.2 oz) SpO2: 92 % Maximum Temperatures (last 24 hours) Temperature Maximum Max Temp 98.6 F (37 C) Dressing and incision clean, dry and intact. Scattered bruising noted around surgical site. Neurovascular intact. Denies calf pain, negative Román's sign. Lab Results Component Value Date HEMOGLOBIN 9.7 (L) 08/11/2018 , Lab Results Component Value Date INR 1.0 (L) 09/23/2016 PT 12.9 09/23/2016 Plan: Continue PT, Pain Meds, and DVT Prophylaxis with Eliquis. Okay to discharge to TCU in [place] later if ambulate well with PT. Discussed calling the office with any problems. Adalgisa Kelly APRN-DANIELLE - 08/10/2018 1:55 PM CDT Hospital Progress Note Bárbara Matthwe is a 62yr old female admitted on 08/08/2018. Assessment / Plan Principal Problem: Status post total replacement of left hip Active Problems: Multiple sclerosis (HCC) Myositis Antisynthetase syndrome (HCC) Mild persistent asthma without complication TORSTEN (obstructive sleep apnea) Immunosuppression (HCC) Fibromyalgia syndrome Essential hypertension Primary hypothyroidism LAP-BAND surgery status Obesity, morbid, BMI 40.0-49.9 (HCC) Acute blood loss anemia Plan: S/P left total hip arthroplasty - managed by ortho - General, EBL 300 - Pain Management: scheduled tylenol/tramadol with PRN oxycodone/fentanyl - DVT prophylaxis: Eliquis, SCDs - PT/OT - D/C tomorrow to [facility]. Multiple Sclerosis - followed by Neurology - Dr. Gongora - Takes interferon, symptom management Anti-synthetase syndrome / myositis - followed by Rheumatology - Dr. Rosenberg - Continue Imuran - Hold prednisone until D/C Fibromyalgia - continue home medication: lyrica, and baclofen Hypothyroidism - continue home medication: levothyroxine, and liothyronine Hypertension - continue home medication: metoprolol, HCTZ, KCL Asthma - continue home medication: Breo, albuterol PRN GERD TORSTEN - CPAP mask broken - not currently wearing Anxiety/Depression - continue home medication: xanax, celebrex, zoloft Bladder dysfunction - able to void spontenously - continue home medication: oxybutin Hx Lap band surgery - 2007 Weight loss - continue home medication: phentermine Morbid Obesity - BMI 48.42 Dispo: Discharge tomorrow to [facility] HPI / History / ROS Patient is a 62-year-old female with PMH of MS, antisynthetase syndrome, TORSTEN, fibromyalgia, hypothyroidism, GERD, Asthma, HTN, myositis, HTN, s/p lap band - 2007, depression/anxiety, and hx of diverticulitis who was admitted today 08/08/18 for an elective left total hip arthroplastywith Dr. Garcia. Interval: Patient doing well post-operatively. Yesterday, was unable to urinate on her own, and had to be straight catheterized a few times. Overnight, and this she has been voiding spontaneously, withno further problems. Patient reports pain currently controlled with regimen. Patient denies any chest pain, shortness of breath, dizziness, nausea or vomiting. Plan for discharge tomorrow to [facility]. Review of Systems Constitutional: Positive for chills. Negative for fever. HENT: Negative for congestion and sore throat. Respiratory: Negative for cough and shortness of breath. Cardiovascular: Negative for chest pain and palpitations. Gastrointestinal: Negative for abdominal pain, constipation, diarrhea, nausea and vomiting (associated with lap band status. ). Genitourinary: Negative for dysuria. Musculoskeletal: Positive for arthralgias and myalgias (related to myositis, MS) . Neurological: Positive for dizziness (related to MS.), weakness (related to MS) and headaches (related to MS). Negative for numbness. Psychiatric/Behavioral: Negative for confusion. Physical / Results Current Vital Signs Temp: 98.6 F (37 C) BP: 109/64 Weight: 136 kg (299 lb 13.2 oz) SpO2: 92 % Resp: 16 Pulse: 78 Current BMI (>50=increased risk): (!) 48.42 O2 Device: Room Air O2 Flow Rate (L/min): 2 l/min Pain Ratin Physical Exam Constitutional: She is oriented to person, place, and time. She appears well- developed and well-nourished. No distress. HENT: Head: Normocephalic and atraumatic. Neck: Neck supple. Cardiovascular: Normal rate, normal heart sounds and intact distal pulses. Pulmonary/Chest: Effort normal and breath sounds normal. No respiratory distress. Abdominal: Soft. Bowel sounds are normal. She exhibits no distension. There is no tenderness. Musculoskeletal: Dressing to left hip is clean, dry and intact. Neurological: She is alert and oriented to person, place, and time. Skin: Skin is dry. Psychiatric: Her behavior is normal. Nursing note and vitals reviewed. Gavin Callejas PA - 08/10/2018 8:39 AM CDT Ortho Progress Note Bárbara Matthew is a 62yr female here for 2 Days Post-Op, Procedure(s): LEFT TOTAL HIP ARTHROPLASTY. Patient of BP 118/58 | Pulse 104 | Temp 99 F (37.2 C) | Resp 16 | Ht 1.676 m (5' 5.98") | Wt 136 kg (299 lb 13.2 oz) | SpO2 92% | BMI 48.42 kg/m Maximum Temperatures (last 24 hours) Temperature Maximum Max Temp 99.8 F (37.7 C) { Lab Results Component Value Date HEMOGLOBIN 9.8 (L) 08/10/2018 Patient doing ok, complains of mild pain. The patient denies nausea. The wound has No drainage. Low grade fever last night but this has resolved. Voiding on her own now. Compartments soft and non-tender. Distal NV intact. Will continue with Physical Therapy today. Continue care plan. Working on TCU placement. Adalgisa Kelly APRN-CNP - 08/09/2018 2: 58 PM CDT Hospital Progress Note Bárbara Matthew is a 62yr old female admitted on 08/08/2018. Assessment / Plan Principal Problem: Status post total replacement of left hip Active Problems: Multiple sclerosis (HCC) Myositis Antisynthetase syndrome (HCC) Mild persistent asthma without complication TORSTEN (obstructive sleep apnea) Immunosuppression (HCC) Fibromyalgia syndrome Essential hypertension Primary hypothyroidism LAP-BAND surgery status Obesity, morbid, BMI 40.0-49.9 (HCC) Acute blood loss anemia Plan: S/P left total hip arthroplasty - managed by ortho - General, EBL 300 - Pain Management: scheduled tylenol/tramadol with PRN oxycodone/fentanyl - DVT prophylaxis: Eliqukenna, SCDs - PT/OT - D/C when ready - possibly TCU/swing bed Multiple Sclerosis - followed by Neurology - Dr. Gongora - Takes interferon, symptom management Anti-synthetase syndrome / myositis - followed by Rheumatology - Dr. Rosenberg - Continue Imuran - Hold prednisone until D/C Fibromyalgia - continue home medication: lyrica, and baclofen Hypothyroidism - continue home medication: levothyroxine, and liothyronine Hypertension - continue home medication: metoprolol, HCTZ, KCL Asthma - continue home medication: Breo, albuterol PRN GERD TORSTEN - CPAP mask broken - not currently wearing Anxiety/Depression - continue home medication: xanax, celebrex, zoloft Bladder dysfunction - continue home medication: oxybutin Hx Lap band surgery - 2007 Weight loss - continue home medication: phentermine Morbid Obesity - BMI 48.42 Dispo: Plans for TCU/Swing bed - pending Case management/PT/OT recs HPI / History / ROS Patient is a 62-year-old female with PMH of MS, antisynthetase syndrome, TORSTEN, fibromyalgia, hypothyroidism, GERD, Asthma, HTN, myositis, HTN, s/p lap band - 2007, depression/anxiety, and hx of diverticulitis who was admitted today 08/08/18 for an elective left total hip arthroplastywith Dr. Garcia. Interval: Patient doing well post-operatively. She did report that she has been unable to urinate onher own since surgery. She has had to be straight catheterized twice. She does report prior history of urine retention which resolves after some time. Patient reports pain currently controlled with regimen. Patient denies any chest pain, shortness of breath, dizziness, nausea or vomiting. Review of Systems Constitutional: Positive for chills. Negative for fever. HENT: Positive for sore throat. Negative for congestion. Respiratory: Negative for cough and shortness of breath. Cardiovascular: Negative for chest pain and palpitations. Gastrointestinal: Negative for abdominal pain, constipation, diarrhea, nausea and vomiting (associated with lap band status. ). Genitourinary: Positive for urgency. Negative for dysuria. Musculoskeletal: Positive for arthralgias and myalgias (related to myositis, MS) . Neurological: Positive for dizziness (related to MS.), weakness (related to MS) and headaches (related to MS). Negative for numbness. Psychiatric/Behavioral: Negative for confusion. Physical / Results Current Vital Signs Temp: 98.5 F (36.9 C) BP: 120/55 Weight: 136 kg (299 lb 13.2 oz) SpO2: 95 % Resp: 16 Pulse: 80 Current BMI (>50=increased risk): (!) 48.42 O2 Device: NC - no humidity O2 Flow Rate (L/min): 1 l/min Pain Ratin Physical Exam Constitutional: She appears well-developed and well-nourished. No distress. HENT: Head: Normocephalic and atraumatic. Neck: Neck supple. Cardiovascular: Normal rate, normal heart sounds and intact distal pulses. Pulmonary/Chest: Effort normal and breath sounds normal. No respiratory distress. Abdominal: Soft. Bowel sounds are normal. She exhibits no distension. There is no tenderness. Musculoskeletal: Dressing to left hip is clean, dry and intact. Nursing note and vitals reviewed. AETCrobson, LALI Bueno - 08/09/2018 7:35 AM CDT Ortho Progress Note Bárbara Matthew is a 62yr female here for 1 Day Post-Op, Procedure(s): LEFT TOTAL HIP ARTHROPLASTY. Patient of BP 142/78 | Pulse 80 | Temp 99 F (37.2 C) | Resp 16 | Ht 1.676 m (5' 5.98") | Wt 136 kg (299 lb 13.2 oz) | SpO2 99% | BMI 48.42 kg/m Maximum Temperatures (last 24 hours) Temperature Maximum Max Temp 99 F (37.2 C) { Lab Results Component Value Date HEMOGLOBIN 10.4 (L) 08/09/2018 Patient doing ok, complains of mild pain. The patient denies nausea. The wound has No drainage. Compartments soft and non-tender. Distal NV intact. Will start with Physical Therapy today. Continue care plan. Hoping to use TCU in [place] at discharge. Ese Ireland, [facility] - 08/08/2018 11:12 AM CDT 08/08/2018 11:12 - Patient was seen by pharmacy on the [facility] Day unit. HOME MEDICATIONS have been reconciled and updated to match the patient's home usage. Does the patient have home prescription medication bottles with them: yes. Patient's Albuterol inhaler was brought to pharmacy to be labeled for use while here. She did not have the Breo inhaler with her. Prior to Admission Medications Prescriptions Last Dose Informant Patient Reported? Taking? ALPRAZolam (XANAX) 0.25 mg tablet 08/07/2018 at Self No Yes Sig: TAKE 1 TABLET BY MOUTH EVERY NIGHT AT BEDTIME Patient taking differently: TAKE 1 -2 TABLET BY MOUTH EVERY NIGHT AT BEDTIME CINNAMON PO 08/01/18 Self Yes Yes Sig: Take 1 capsule by mouth 1 time per day Clif, Zingiber officinalis, (CLIF ROOT PO) 06/30/18 Self Yes Yes Sig: Take 1 tablet by mouth 1 time per day Multiple Vitamin (MULTIVITAMIN PO) 08/01/18 Self Yes Yes Sig: Take 1 tablet by mouth 1 time per day. [place]-3 Fatty Acids (FISH OIL PO) 08/01/18 Self Yes Yes Sig: Take 1 tablet by mouth 1 time per day acetaminophen-codeine #3 (TYLENOL #3) 300-30 mg tablet Over 1 week Self No Yes Sig: Take 1 tablet by mouth 2 times a day as needed for moderate pain albuterol HFA (PROVENTIL,PROAIR,VENTOLIN) 108 (90 Base) MCG/ACT inhaler Over 1 month MED Bottles or MED List No Yes Sig: Inhale 2 puffs orally Every 4 hours as needed for shortness of breath, wheezing or cough Shake well before using. albuterol-ipratropium (DUO-NEB) 2.5-0.5 mg/3 mL inhalation solution Not Taking at Unknown time Self No No Sig: Inhale 1 unit-dose (3 mL) by nebulization Every 6 hours Patient not taking: Reported on 08/08/2018 aspirin 81 mg enteric coated tablet 08/01/18 Self Yes Yes Sig: Take 81 mg by mouth 1 time a day in the evening azaTHIOprine (IMURAN) 50 MG tablet 08/03/18 MED Bottles or MED List No Yes Sig: Take 1 tablet (50 mg) by mouth 2 times a day baclofen (LIORESAL) 10 mg tablet 08/07/2018 at HS MED Bottles or MED List No Yes Sig: One tab 3x a day Patient taking differently: Take 10 mg by mouth every night at bedtime Also takes twice daily as needed celecoxib (CELEBREX) 200 mg capsule 08/01/18 MED Bottles or MED List No Yes Sig: Take 2 capsules (400 mg) by mouth 1 time per day clobetasol propionate (TEMOVATE) 0.05 % cream Over 1 week. Doesn't need while here Self No Yes Sig: Apply to affected area 2 times a day Patient taking differently: Apply to affected area 2 times a day as needed fluticasone-vilanterol (BREO ELLIPTA) 100-25 mcg/puff inhaler 08/07/2018 at HS Self No Yes Sig: Inhale 1 puff orally 1 time per day Rinse mouth after use. Patient taking differently: Inhale 1 puff orally every night at bedtime Rinse mouth after use. folic acid 1 mg tablet 08/07/2018 at Unknown time Self No Yes Sig: Take 1 tablet (1 mg) by mouth 1 time per day hydroCHLOROthiazide 12.5 mg tablet 08/07/2018 at AM MED Bottles or MED List No Yes Sig: Take 1 tablet (12.5 mg) by mouth 1 time per day interferon beta-1a (REBIF) 44 mcg/0.5 mL (44 mcg/0.5 mL) injection solution 08/07 at HS Self No Yes Sig: INJECT CONTENTS OF ONE SYRINGE SUBCUTANEOUSLY 3 TIMES A WEEK . STORE IN [facility] levothyroxine 150 mcg tablet 08/08/2018 at 0800 MED Bottles or MED List No Yes Sig: Take once daily on empty stomach, separate from vitamins, supplements, calcium. Patient taking differently: Take 150 mcg by mouth 1 time a day on an empty stomach Take once daily on empty stomach, separate from vitamins, supplements, calcium. liothyronine (CYTOMEL) 5 MCG TABS 08/08/2018 at 0800 MED Bottles or MED List No Yes Sig: Take 1 tablet (5 mcg) by mouth 1 time per day metoprolol tartrate (LOPRESSOR) 25 mg tablet 08/08/2018 at 0800 MED Bottles or MED List Yes Yes Sig: Take 25 mg by mouth 2 times a day. oxybutynin (DITROPAN-XL) 5 mg SR tablet (24 hr) 08/08/2018 at 0800 MED Bottles or MED List No Yes Sig: Take 1 tablet (5 mg) by mouth 1 time per day phentermine (ADIPEX-P) 37.5 MG tablet 07/26/2018 Self No Yes Sig: Take 1 tablet (37.5 mg) by mouth 1 time a day in the morning potassium chloride (K-TAB) 10 mEq CR tablet 08/07/2018 at Unknown time MED Bottles or MED List No Yes Sig: Take 2 tablets (20 mEq) by mouth 2 times a day predniSONE 5 mg tablet 08/07/2018 at AM MED Bottles or MED List No Yes Sig: Take 1 tablet (5 mg) by mouth 1 time per day pregabalin (LYRICA) 75 mg capsule 08/08/2018 at 0800 MED Bottles or MED List No Yes Sig: Take one tab in am and two tabs at night sertraline (ZOLOFT) 100 mg tablet 08/08/2018 at 0800 MED Bottles or MED List Yes Yes Sig: Take 100 mg by mouth 1 time per day sulfaSALAzine (AZULFIDINE) 500 mg tablet Over 1 month MED Bottles or MED List Yes Yes Sig: Take 500 mg by mouth as needed for other (Specify) triamcinolone (KENALOG IN ORABASE) 0.1 % paste Not Taking at Unknown time Self No No Sig: Apply twice a day to canker sores Patient not taking: Reported on 08/08/2018 Facility-Administered Medications: None Ese Brown RPh documented in this encounter Plan of Treatment Date Type Specialty Care Team Description 08/22/2018 Office Visit SLEEP MEDICINE Robinson Morocho MD [address] [place] [address] [phone] 08/23/2018 Office Visit Orthopedics Gavin Parker PA [address], [place] [id number] 09/11/2018 Office Visit Neurology Jaqueline Gongora MD [address] [place] [address] [phone] 09/13/2018 Office Visit Orthopedics Yonathan Garcia MD [address] [place] [address] [phone] 02/16/2019 Office Visit Endocrinology Stevo Huber MD [address] [place] [address] [phone] Health Maintenance Due Date Last Done Comments Hepatitis C Screening 1955 HIV One Time Screening Ages 15-65 12/29/1971 Pap Smear 1977 Colorectal Cancer Screening 2006 Zoster Vaccine (1 of 2 - 2006 RZV,Shingrix) Pneumococcal 19-64yr Highest 03/18/2016 03/18/2015 Risk(Category 3) (2 of 3 - PCV13) Mammogram 01/07/2018 01/07/2017, 06/21/2013, 11/15/2006 (Previously completed) Asthma Action Plan & Environmental 09/13/2018 09/13/2017 Control Asthma Control Test 03/17/2019 03/17/2018, 08/26/2017 Diabetes Screening 08/09/2021 08/09/2018, 02/16/2018, 11/21/2017, Additional history exists Tetanus Vaccine 02/14/2022 02/15/2012, 08/27/2010 Lipid Screening 02/16/2023 02/16/2018 Influenza Vaccine Completed 03/17/2018, 03/18/2015, 03/09/2013 documented as of this encounter Implants Implanted Type Area Radio Frequency Design Engineer Device Shelf Model / Identifier Expiration Serial / Date Lot Cmnt Simplex P W Tobramyacin N [id number] Bx10/Ea - Sn/A Ortho Right: KNEE ZOHREH 10/05/2012 [id number] / Implanted: Qty: 1 on 10/06/2011 by Michael Aviles MD Other N/A / [id number] Knee Ptla Dome 3peg Depuy 35mm N [id number] Ea - Sn/A Total Jt Right: K[employer]EE [employer] 07/05/2016 [id number] / Implanted: Qty: 1 on 10/06/2011 by Michael Aviles MD Knee N/A / [id number] Knee Fem Pfc Cr Depuy Rt 4 N Ea - Sn/A Total Jt Right: KNEE [employer] 07/05/2021 / Implanted: Qty: 1 on 10/06/2011 by Michael Aviles MD Knee N/A / [id number] Knee Insrt Curv Depuy 4 10mm N [id number] Ea - Sn/A Total Jt [employer] 09/04/2016 [id number] / Implanted: Qty: 1 on 10/06/2011 by Michael Aviles MD Knee N/A / [id number] Knee Tib Base Mod Depuy 4 N [id number] Ea - Sn/A Total Jt Right: KNEE [employer] 07/05/2021 [id number] / Implanted: Qty: 1 on 10/06/2011 by Michael Aviles MD Knee N/A / [id number] Hip Shell Trid Pavon 0hl 54mm N 540-11-54f Ea1 - Sn/A Left: ZOHREH 2022 [id number] / Implanted: Qty: 1 on 08/08/2018 by Yonathan Garcia MD ACETABULUM N/ A / [id number] Hip Lnr Trid X3 Pe 10d 36mm F N 623-10-36f Ea1 - Sn/A Left: ZOHREH 623-10-36F / Implanted: Qty: 1 on 08/08/2018 by Yonathan Garcia MD ACETABULUM N/ A / [id number] Hip Stem Acldii 127d Sz5 N [id number] Ea1 - Sn/A Left: FEMUR ZOHREH [id number] / Implanted: Qty: 1 on 08/08/2018 by Yonathan Garcia MD N/A / [id number] Hip Hd V40 [place] Cer 36mm +0 N 6570-0-136 Ea1 - Sn/A Left: FEMUR ZOHREH 06/12/2023 6570-0-136 / Implanted: Qty: 1 on 08/08/2018 by Yonathan Garcia MD N/A / [id number] Explanted Type Area Radio Frequency Design Engineer Device Shelf Model / Identifier Expiration Serial / Date Lot Denis Aly Sglster1/8 [id number] Ea1 - Sn/A Left: [facility] [id number] / Implanted: Qty: 4 AC[employer] N/A / Explanted: Qty: 4 on 08/08/2018 N/A documented as of this encounter Procedures Procedure Name Priority Date/Time Associated Diagnosis Comments HEMOGLOBIN Routine 08/11/2018 5:24 Results for this AM CDT procedure are in the results section. HEMOGLOBIN Routine 08/10/2018 5:40 Results for this AM CDT procedure are in the results section. BASIC METABOLIC PANEL Routine 08/09/2018 6:40 Results for this AM CDT procedure are in the results section. LAB ONLY-COMPLETE Routine 08/09/2018 6:39 Results for this BLOOD COUNT WITH AM CDT procedure are in DIFFERENTIAL the results section. COMPLETE BLOOD COUNT Routine 08/09/2018 6:39 Results for this WITH DIFFERENTIAL AM CDT procedure are in the results section. XRAY PELVIS 1 OR 2 Routine 08/08/2018 4:25 Results for this VIEWS PM CDT procedure are in the results section. XRAY PELVIS 1 OR 2 Routine 08/08/2018 3:25 Results for this VIEWS PM CDT procedure are in the results section. TISSUE EXAM Routine 08/08/2018 2:59 Degenerative joint Results for this PM CDT disease of pelvic procedure are in region the results section. ARTHROPLASTY HIP 08/08/2018 12:45 Degenerative joint PM CDT disease of pelvic region Special Needs *X* FROM 07/07, BMI 49.74, history of MS BMI 49.09 HEMOGLOBIN STAT 08/08/2018 10:56 AM CDT POTASSIUM STAT 08/08/2018 10:56 AM CDT documented in this encounter Results HEMOGLOBIN (08/11/2018 5:24 AM CDT)Only the most recent of3 resultswithin the time period is included. Hemoglobin 9.7 (L) 11.5 - 15.8 g/dL [facility] Specimen Blood - Blood Performing Organization Address [facility]/Zipcode Phone Number [facility] [address] [place], [place] [phone] BASIC METABOLIC PANEL (08/09/2018 6:40 AM CDT) Glucose 120 (H) 70 - 100 mg/dL [facility] BUN 9 6 - 22 mg/dL [facility] Creatinine 0.73 0.60 - 1.10 mg/dL [facility] BUN/Creatinine Ratio 12.3 10.0 - 25.0 [facility] Sodium 140 135 - 145 meq/L [facility] Potassium 4.1 3.5 - 5.3 meq/L [facility] Chloride 105 99 - 110 meq/L [facility] CO2 27 20 - 29 meq/L [facility] Anion Gap with K 12 6 - 20 meq/L [facility] Calcium 8.8 8.5 - 10.5 mg/dL [facility] Age 62 Years [facility] eGFR Non- 81 >=60 mL/min/1.73m2 [facility] eGFR >90 >=60 mL/min/1.73m2 [facility] Specimen Blood - Blood Performing Organization Address City/[facility]/Zipcode Phone Number [facility] [address] [place], [place] [phone] LAB ONLY-COMPLETE BLOOD COUNT WITH DIFFERENTIAL (08/09/2018 6:39 AM CDT) WBC 6.7 4.0 - 11.0 K/uL [facility] RBC 3.55 (L) 3.80 - 5.30 M/uL [facility] Hemoglobin 10.4 (L) 11.5 - 15.8 g/dL [facility] Hematocrit 33.4 (L) 35.0 - 45.0 % [facility] MCV 94.1 80.0 - 98.0 fL [facility] MCH 29.3 25.5 - 34.0 pg [facility] MCHC 31.1 (L) 31.5 - 36.5 g/dL [facility] RDW-CV 13.8 11.5 - 15.5 % [facility] RDW-SD 45.5 35.5 - 50.0 fl [facility] Platelet Count 185 140 - 400 K/uL [facility] MPV 10.4 8.5 - 12.0 fL [facility] Seg Neut Absolute 5.3 1.8 - 8.0 K/uL [facility] Lymphocytes Absolute 0.6 (L) 0.8 - 4.1 K/uL [facility] Monocytes Absolute 0.7 0.0 - 1.0 K/uL [facility] Eosinophils Absolute 0.1 0.0 - 0.7 K/uL [facility] Basophil Absolute 0.0 0.0 - 0.2 K/uL [facility] Neutrophils Abs. (Segs and Bands) 5,300 /uL [facility] Neutrophils Percent 79.0 % [facility] Lymphocytes Percent 8.2 % [facility] Monocytes Percent 11.1 % [facility] Eosinophils Percent 1.2 % [facility] Basophil Percent 0.4 % [facility] Specimen Blood - Blood Performing Organization Address City/State/Zipcode Phone Number [facility] [address] [place] [address] XRAY PELVIS 1 OR 2V (08/08/2018 4:25 PM CDT)Only the most recent of2 resultswithin the time period is included. Narrative Performed At [facility] Patient Name: BÁRBARA MATTHEW Date of :1955 Procedure: XRAY PELVIS 1 OR 2 VIEWS Date of Service: 08/08/2018 EXAM: XRAY PELVIS 1 OR 2 VIEWS INDICATION:post op [facility] COMPARISON(S): Earlier same date. FINDINGS: Portable view of the pelvis was performed. Comparison made to earlier the same day. Postsurgical changes of left hip arthroplasty. Femoral sizing devices been replaced with the femoral component of the hip arthroplasty. Hardware is intact and in good position. Finalized by: Phillip Tobar MD on 08/08/2018 5:09 PM Patient/Procedure Information: [facility] MRN/MASSIEL: [id number] Order Number: [id number] Accession Number: [id number] Ordering Provider: GAVIN PARKER Authorizing Provider: GAVIN PARKER Procedure Note Interface, Radiantres - 08/08/2018 5:11 PM CDT Patient Name: BÁRBARA MATTHEW Date of : 1955 Procedure: XRAY PELVIS 1 OR 2 VIEWS Date of Service: 08/08/2018 EXAM: XRAY PELVIS 1 OR 2 VIEWS INDICATION:post op [facility] COMPARISON(S): Earlier same date. FINDINGS: Portable view of the pelvis was performed. Comparison made to earlier the same day. Postsurgical changes of left hip arthroplasty. Femoral sizing devices been replaced with the femoral component of the hip arthroplasty. Hardware is intact and in good position. Finalized by: Phillip Tobar MD on 08/08/2018 5:09 PM Patient/Procedure Information: [facility] MRN/MASSIEL: [id number] Order Number: [id number] Accession Number: [id number] Ordering Provider: GAVIN PARKER Authorizing Provider: GAVIN PARKER Performing Organization Address City/State/Zipcode Phone Number [id number] TISSUE EXAM (08/08/2018 2:59 PM CDT) FINAL DIAGNOSIS Bone and soft tissue, left hip, arthroplasty: [facility] - Bone fragments with changes grossly consistent with degenerative joint disease, and soft tissue fragments without gross pathological abnormality ( gross examination only; see gross description). SH:ao GROSS DESCRIPTION Received in formalin labeled "left hip tissue" is a 5.1 x 4.7 x 4.5 cm femoral head with a smooth margin of resection. The articular surface shows areas of eburnation, osteophyte formation and focal pit [facility] ting. Sections show an unremarkable cut surface with no evidence of avascular necrosis or periosteal lifting. Also received is a 4.2 x 2.6 x 0.9 cm aggregate of red-brown bone shavings and soft tissue fragments. The specimen is for gross only diagnosis, no sections are submitted. MS:ao MICROSCOPIC DESCRIPTION [facility] CASE REPORT Surgical Pathology Report Case: [id number] [facility] Authorizing Provider:Yonathan Garcia MD Collected: 08/08/2018 1739 Ordering Location: Intra [facility] Received: 08/08/2018 1711 Pathologist: Arnie Ramirez MD Specimen:Knee, Left hip tissue EMBEDDED IMAGES [facility] Specimen Bone - Knee Performing Organization Address City/State/Zipcode Phone Number [facility] [address] [place] [address] POTASSIUM (08/08/2018 10:56 AM CDT) Potassium 4.0 3.5 - 5.3 meq/L [facility] Specimen Blood - Blood Performing Organization Address City/State/Zipcode Phone Number [facility] [address] [place] [address] documented in this encounter Visit Diagnoses Diagnosis Status post total replacement of left hip - Primary Degenerative joint disease of pelvic region Osteoarthrosis, unspecified whether generalized or localized, pelvic region and thigh Multiple sclerosis (HCC) Multiple sclerosis Myositis Mylagia and myositis, unspecified Antisynthetase syndrome (HCC) Autoimmune disease, not elsewhere classified Mild persistent asthma without complication Unspecified asthma TORSTEN (obstructive sleep apnea) Obstructive sleep apnea (adult) (pediatric) Immunosuppression (HCC) Unspecified disorder of immune mechanism Fibromyalgia syndrome Mylagia and myositis, unspecified Essential hypertension Unspecified essential hypertension Primary hypothyroidism Unspecified hypothyroidism LAP-BAND surgery status Bariatric surgery status Obesity, morbid, BMI 40.0-49.9 ([facility]) Acute blood loss anemia Acute posthemorrhagic anemia documented in this encounter Administered Medications Medication Order MAR Action Action Date Dose Rate Site acetaminophen (TYLENOL) tablet Given 08/11/2018 6:16 AM CDT 650 mg 650 mg 650 mg, Oral, Every six hours, First dose on Tue08/08/18 at 1800, Until Discontinued, Post - Op, Alternate with tramadol (ULTRAM); Total dose of acetaminophen from all acetaminophen containing products should not exceed 4 grams (4000 mg) per day., Given 08/11/2018 12:54 AM CDT 650 mg Given 08/10/2018 8:59 PM CDT 650 mg ALPRAZolam (XANAX) tablet 0.25 mg Given 08/10/2018 9:00 PM CDT 0.25 mg 0.25 mg, Oral, Bedtime, First dose on Tue08/08/18 at 2100, Until Discontinued Given 08/09/2018 8:37 PM CDT 0.25 mg Given 08/08/2018 8:25 PM CDT 0.25 mg apixaban (ELIQUIS) tablet 2.5 mg Given 08/11/2018 8:10 AM CDT 2.5 mg 2.5 mg, Oral, Two times a day, 70 doses, First dose on Tue08/09/18 at 0800, Last dose on Tue09/12/18 at 2000, Post - Op Given 08/10/2018 8:59 PM CDT 2.5 mg Given 08/10/2018 8:56 AM CDT 2.5 mg azaTHIOprine (IMURAN) tablet 50 mg Given 08/11/2018 8:10 AM CDT 50 mg 50 mg, Oral, Two times a day, First dose on Tue08/08/18 at 2100, Until Discontinued, This medication is a low risk cytotoxic drug. Wear 2 pairs of chemo gloves for administration. If unable to administer dose intact - contact pharmacy for other administration options. Dispose of empty packages in the yellow cytotoxic waste. Dispose of unused or partial packages in the black waste containers., Given 08/10/2018 8:59 PM CDT 50 mg Given 08/10/2018 8:56 AM CDT 50 mg baclofen (LIORESAL) tablet 10 mg Given 08/10/2018 8:59 PM CDT 10 mg 10 mg, Oral, Bedtime, First dose on Tue08/08/18 at 2100, Until Discontinued Given 08/09/2018 8:37 PM CDT 10 mg Given 08/08/2018 8:28 PM CDT 10 mg bisacodyl (DULCOLAX) enteric coated tablet 5 Given 08/11/2018 12:59 AM CDT 5 mg mg 5 mg, Oral, Two times a day prn, Starting Tue08/08/18 at 1710, Until Discontinued, constipation, Post - Op, SECOND choice or per patient preference, bisacodyl (DULCOLAX) suppository 10 mg Given 08/11/2018 7:48 AM CDT 10 mg 10 mg, Rectal, One time a day prn, Starting Tue08/08/18 at 1710, Until Discontinued, constipation, Post - Op, THIRD choice or per patient preference. If patient cannot take oral medications, use first for constipation., celecoxib (celeBREX) capsule 200 mg Given 08/11/2018 8:09 AM CDT 200 mg 200 mg, Oral, Two times a day, 20 doses, First dose on Tue08/09/18 at 2100, Last dose on Tue08/19/18 at 0900, Post - Op Given 08/10/2018 8:59 PM CDT 200 mg Given 08/10/2018 8:56 AM CDT 200 mg fluticasone-vilanterol (BREO ELLIPTA) 100-25 Given 08/11/2018 7:25 AM CDT 1 puff mcg/puff inhaler 1 puff 1 puff, Inhalation, Bedtime, First dose on Tue08/08/18 at 1800, Until Discontinued, Rinse mouth after use., Given 08/09/2018 6:06 PM CDT 1 puff Given 08/08/2018 5:56 PM CDT 1 puff hydroCHLOROthiazide tablet 12.5 mg Given 08/11/2018 8:09 AM CDT 12.5 mg 12.5 mg, Oral, DAILY, First dose on Tue08/09/18 at 0900, Until Discontinued Given 08/10/2018 8:56 AM CDT 12.5 mg Given 08/09/2018 9:14 AM CDT 12.5 mg levothyroxine tablet 150 mcg Given 08/11/2018 6:16 AM CDT 150 mcg 150 mcg, Oral, One time a day on an empty stomach, First dose on Tue08/09/18 at 0600, Until Discontinued Given 08/10/2018 6:18 AM CDT 150 mcg Given 08/09/2018 5:36 AM CDT 150 mcg liothyronine (CYTOMEL) tablet 5 mcg Given 08/11/2018 8:09 AM CDT 5 mcg 5 mcg, Oral, DAILY, First dose on Tue08/09/18 at 0900, Until Discontinued Given 08/10/2018 8:56 AM CDT 5 mcg Given 08/09/2018 9:14 AM CDT 5 mcg magnesium hydroxide (MILK OF MAGNESIA) oral Given 08/11/2018 12:59 AM CDT 30 mL suspension 30 mL 30 mL, Oral, Two times a day prn, Starting Tue08/08/18 at 1710, Until Discontinued, constipation, 30 mL, Post - Op, FIRST choice or per patient preference. Exception: Nephrology/renal patients, Given 08/10/2018 9:38 PM CDT 30 mL metoprolol tartrate (LOPRESSOR) tablet 25 mg Given 08/11/2018 8:27 AM CDT 25 mg 25 mg, Oral, Two times a day, First dose on Tue08/08/18 at 2100, Until Discontinued Given 08/10/2018 8:59 PM CDT 25 mg Given 08/10/2018 8:56 AM CDT 25 mg nystatin (NYAMYC) [id number] UNIT/GM powder Given 08/11/2018 8:10 AM CDT Apply externally, Two times a day, First dose on Tue08/08/18 at 2225, Until Discontinued Given 08/10/2018 9:00 PM CDT Given 08/10/2018 8:58 AM CDT oxybutynin (DITROPAN-XL) SR tablet (24 hr) 5 Given 08/11/2018 8:09 AM CDT 5 mg mg 5 mg, Oral, DAILY, First dose on Tue08/09/18 at 0900, Until Discontinued, Tablet should not be crushed or chewed., Given 08/10/2018 8:56 AM CDT 5 mg Given 08/09/2018 9:14 AM CDT 5 mg polyethylene glycol (MIRALAX) packet 1 Given 08/10/2018 8:56 AM CDT 1 packet packet 1 packet, Oral, Daily, First dose on Tue08/09/18 at 0900, Until Discontinued, Post - Op, Hold if 2 loose stools occur in the last 24 hours., Given 08/09/2018 10:00 AM CDT 1 packet pregabalin (LYRICA) CAPS 75 mg Given 08/11/2018 8:08 AM CDT 75 mg 75 mg, Oral, Two times a day, First dose on Tue08/08/18 at 2100, Until Discontinued, One tablet in am and two tablets in pm, Given 08/10/2018 8:59 PM CDT 75 mg Given 08/10/2018 8:56 AM CDT 75 mg senna-docusate sodium Given 08/11/2018 8:09 AM CDT 1 tablet (SENOKOT-S;PERICOLACE) tablet 1 tablet 1 tablet, Oral, Two times a day, First dose on Tue08/08/18 at 2100, Until Discontinued, Post - Op, Hold if 2 loose stools occur in the last 24 hours., Given 08/10/2018 9:00 PM CDT 1 tablet Given 08/10/2018 8:56 AM CDT 1 tablet sertraline (ZOLOFT) tablet 100 mg Given 08/11/2018 8:09 AM CDT 100 mg 100 mg, Oral, DAILY, First dose on Tue08/09/18 at 0900, Until Discontinued Given 08/10/2018 8:56 AM CDT 100 mg Given 08/09/2018 9:14 AM CDT 100 mg sodium chloride 0.9% flush (adult) 10 mL Given 08/10/2018 8:58 AM CDT 10 mL 10 mL, IV, Two times a day and prn, First dose on Tue08/08/18 at 2100, Until Discontinued, 10 mL, Post - Op, Flush IV line as scheduled and as often as necessary before and after meds., Given 08/09/2018 8:36 PM CDT 10 mL traMADol (ULTRAM) tablet 100 mg Given 08/11/2018 8:09 AM CDT 100 mg 100 mg, Oral, Every six hours, First dose on Tue08/08/18 at 2100, Until Discontinued, Post - Op, Alternate with acetaminophen (TYLENOL). Recommended maximum daily dose of hpsVDVug=033 mg. Recommended maximum daily dose in patients greater than 75 years of age=300 mg, Given 08/10/2018 3:59 AM CDT 100 mg Given 08/09/2018 8:37 PM CDT 100 mg Medication Order MAR Action Action Date Dose Rate Site acetaminophen (TYLENOL) tablet Given 08/08/2018 12:21 PM CDT 1,000 mg 1,000 mg 1,000 mg, Oral, Pre-op, 1 dose, Tue08/08/18 at 1305, Pre - Op, Total dose of acetaminophen from all acetaminophen containing products should not exceed 4 grams (4000 mg) per day., ceFAZolin (ANCEF) 2000 mg/20 mL sterile Given 08/09/2018 5:43 AM CDT 2,000 mg water IV syringe 2,000 mg, IV, Every eight hours, 2 doses, First dose on Tue08/08/18 at 2200, Last dose on Tue08/09/18 at 0600, 20 mL, PACU - Continue Post-Op, Administer as IV push over 4 minutes., Given 08/08/2018 10:32 PM CDT 2,000 mg gabapentin (NEURONTIN) capsule 600 mg Given 08/08/2018 12:21 PM CDT 600 mg 600 mg, Oral, Pre-op, 1 dose, 08/08/18 at 1305, Pre - Op, 1 dose prior to surgery, ketorolac (TORADOL) intravenous injection 15 Given 08/08/2018 1:51 PM CDT 15 mg mg 15 mg, IV, Pre-op, 1 dose, 08/08/18 at 1305, 1 mL, Pre - Op, 1 dose prior to surgery If preference is to further dilute for IV administration: First draw up patient-specific dose, then dilute to 10 mL with 0.9% sodium chloride., lactated ringers IV solution New Bag 08/08/2018 3:24 PM CDT IV, at 25 mL/hr, Continuous, Starting Tue08/08/18 at 1150, Until Tue08/08/18 at 1550, 1,000 mL, Pre - Op New Bag 08/08/2018 1:45 PM CDT 25 mL/hr lactated ringers IV solution Already Infusing 08/08/2018 3:50 PM CDT 125 mL/hr IV, at 125 mL/hr, Continuous, Starting Tue08/08/18 at 1605, Until Tue08/08/18 at 1658, 1,000 mL, PACU, TKO current fluids if patient is going to Day Unit / ARU and tolerating PO fluids without nausea., lidocaine PF Given 08/08/2018 12:00 PM 0.1 mL Intradermal for IV (XYLOCAINE-MPF) 1 % CDT start preservative free injection solution 0.1-0.3 mL 0.1-0.3 mL, Intradermal, Pre-op, 1 dose, Tue08/08/18 at 1150, 2 mL, Pre - Op, IV start, sodium chloride 0.9% IV solution New Bag 08/09/2018 2:04 AM CDT 100 mL/hr IV, at 100 mL/hr, Continuous, Starting Tue08/08/18 at 1715, Until Tue08/09/18 at 2032, 1,000 mL, Post - Op New Bag 08/08/2018 5:15 PM CDT 100 mL/hr traMADol (ULTRAM) tablet 100 mg Given 08/08/2018 12:21 PM CDT 100 mg 100 mg, Oral, Pre-op, 1 dose, 08/08/18 at 1305, Pre - Op, Recommended maximum daily dose of [id number]=878 mg. Recommended maximum daily dose in patients 75 years or [id number]=423 mg., documented in this encounter
[2018-08-15] MEDS: ALPRAZolam 0.25 MG Tab PO SCH (19:37)
[2018-08-16] MEDS: LIOTHYRONINE 5 MCG PO SCH (08:10)
[2018-08-16] MEDS: Levothyroxine 150 MCG Tab PO SCH (08:10)
[2018-08-16] MEDS: CELECOXIB 200 MG PO SCH (08:10)
[2018-08-16] MEDS: Cinnamon Bark [Cinnamon] 500 MG PO SCH (08:11)
[2018-08-16] MEDS: Apixaban 2.5 MG Tab PO SCH ×2 (08:11→17:22)
[2018-08-16] MEDS: Albuterol/Ipratropium 3.0-0.5 MG/3 ML Neb Soln NEB SCH ×2 (08:11→19:30)
[2018-08-16] MEDS: Folic Acid 1 MG Tab PO SCH (08:12)
[2018-08-16] MEDS: Potassium Chloride 10 MEQ Tab.ER PO SCH ×2 (08:12→17:23)
[2018-08-16] MEDS: Metoprolol Tartrate 25 MG Tab PO SCH ×2 (08:13→19:28)
[2018-08-16] MEDS: Baclofen 10 MG Tab PO SCH ×3 (08:13→17:23)
[2018-08-16] MEDS: HYDROCHLOROTHIAZIDE 12.5 MG PO SCH (08:14)
[2018-08-16] MEDS: Pregabalin 75 MG Cap PO SCH ×2 (08:14→19:29)
[2018-08-16] MEDS: PHENTERMINE HCL 37.5 MG PO SCH (08:15)
[2018-08-16] MEDS: Nystatin Topical Powder 15 GM Bottle TOP SCH ×2 (08:15→17:23)
[2018-08-16] MEDS: Oxybutynin 5 MG Tab.ER PO SCH (08:15)
[2018-08-16] MEDS: SERTRALINE 100 MG PO SCH (08:16)
[2018-08-16] MEDS: Multivitamin Tab PO SCH (08:16)
[2018-08-16] MEDS: predniSONE 5 MG Tab PO SCH (11:29)
[2018-08-16] MEDS: ALPRAZolam 0.25 MG Tab PO SCH (19:29)
[2018-08-16] MEDS: [UNRECOGNIZED DRUG - OTHER] SUBCUT SCH (20:15)
[2018-08-16] MEDS: traMADol 50 MG Tab PO PRN (21:41)
[2018-08-17] MEDS: Levothyroxine 150 MCG Tab PO SCH (08:08)
[2018-08-17] MEDS: LIOTHYRONINE 5 MCG PO SCH (08:08)
[2018-08-17] MEDS: Albuterol/Ipratropium 3.0-0.5 MG/3 ML Neb Soln NEB SCH ×2 (08:10→19:38)
[2018-08-17] MEDS: Cinnamon Bark [Cinnamon] 500 MG PO SCH (08:10)
[2018-08-17] MEDS: CELECOXIB 200 MG PO SCH (08:10)
[2018-08-17] MEDS: Apixaban 2.5 MG Tab PO SCH ×2 (08:10→17:19)
[2018-08-17] MEDS: Folic Acid 1 MG Tab PO SCH (08:11)
[2018-08-17] MEDS: Baclofen 10 MG Tab PO SCH ×3 (08:12→17:20)
[2018-08-17] MEDS: Potassium Chloride 10 MEQ Tab.ER PO SCH ×2 (08:12→17:20)
[2018-08-17] MEDS: Pregabalin 75 MG Cap PO SCH ×2 (08:13→19:40)
[2018-08-17] MEDS: Metoprolol Tartrate 25 MG Tab PO SCH ×2 (08:13→19:38)
[2018-08-17] MEDS: PHENTERMINE HCL 37.5 MG PO SCH (08:14)
[2018-08-17] MEDS: HYDROCHLOROTHIAZIDE 12.5 MG PO SCH (08:14)
[2018-08-17] MEDS: Oxybutynin 5 MG Tab.ER PO SCH (08:15)
[2018-08-17] MEDS: Nystatin Topical Powder 15 GM Bottle TOP SCH ×2 (08:15→19:39)
[2018-08-17] MEDS: SERTRALINE 100 MG PO SCH (08:16)
[2018-08-17] MEDS: Multivitamin Tab PO SCH (08:16)
[2018-08-17] MEDS: predniSONE 5 MG Tab PO SCH (11:47)
[2018-08-17] MEDS: ALPRAZolam 0.25 MG Tab PO SCH (19:41)
[2018-08-18] MEDS: LIOTHYRONINE 5 MCG PO SCH (08:02)
[2018-08-18] MEDS: Levothyroxine 150 MCG Tab PO SCH (08:03)
[2018-08-18] MEDS: Nystatin Topical Powder 15 GM Bottle TOP SCH ×2 (08:03→19:38)
[2018-08-18] MEDS: CELECOXIB 200 MG PO SCH (08:04)
[2018-08-18] MEDS: Cinnamon Bark [Cinnamon] 500 MG PO SCH (08:05)
[2018-08-18] MEDS: Albuterol/Ipratropium 3.0-0.5 MG/3 ML Neb Soln NEB SCH ×2 (08:05→19:36)
[2018-08-18] MEDS: Folic Acid 1 MG Tab PO SCH (08:06)
[2018-08-18] MEDS: Apixaban 2.5 MG Tab PO SCH ×2 (08:06→18:02)
[2018-08-18] MEDS: Potassium Chloride 10 MEQ Tab.ER PO SCH (08:07)
[2018-08-18] MEDS: Baclofen 10 MG Tab PO SCH ×3 (08:07→18:02)
[2018-08-18] MEDS: HYDROCHLOROTHIAZIDE 12.5 MG PO SCH (08:07)
[2018-08-18] MEDS: Oxybutynin 5 MG Tab.ER PO SCH (08:08)
[2018-08-18] MEDS: Multivitamin Tab PO SCH (08:09)
[2018-08-18] MEDS: SERTRALINE 100 MG PO SCH (08:09)
[2018-08-18] MEDS: Metoprolol Tartrate 25 MG Tab PO SCH ×2 (08:12→19:36)
[2018-08-18] MEDS: Pregabalin 75 MG Cap PO SCH ×2 (08:13→19:37)
[2018-08-18] MEDS: PHENTERMINE HCL 37.5 MG PO SCH (08:14)
[2018-08-18] MEDS: Acetaminophen 325 MG Tab PO PRN ×2 (08:15→18:08)
--- NOTE | 2018-08-18 09:21 | PCM.SN ---
- Free Text/Narrative Note: 08-18-18 Nava Cam PA-C Nurse reported that pt c/o urinary burning and foul smelling urine, and says she believes she has a yeast infection. Did order a UA to check for UTI d/t those complaints and follow after that lab available. Patient also c/o fluid in BLE but does not like DESIREE hose, ordering tubigrips. Nurse says pt is elevating legs.
[2018-08-18] MEDS: traMADol 50 MG Tab PO PRN (09:27)
[2018-08-18] MEDS: predniSONE 5 MG Tab PO SCH (11:14)
[2018-08-18 15:06] LABS: CHLORIDE,CL 106 mmol/L (98-107); SODIUM,NA 142 mmol/L (136-145)
[2018-08-18] MEDS: Sulfamethoxazole/Trimethoprim 800-160 MG Tab PO SCH (18:02)
[2018-08-18] MEDS: ALPRAZolam 0.25 MG Tab PO SCH (19:39)
[2018-08-18] MEDS: [UNRECOGNIZED DRUG - OTHER] SUBCUT SCH (20:02)
[2018-08-19] MEDS: Levothyroxine 150 MCG Tab PO SCH (07:38)
[2018-08-19] MEDS: Acetaminophen 325 MG Tab PO PRN ×2 (07:38→19:30)
[2018-08-19] MEDS: CELECOXIB 200 MG PO SCH (08:08)
[2018-08-19] MEDS: Albuterol/Ipratropium 3.0-0.5 MG/3 ML Neb Soln NEB SCH ×2 (08:08→19:23)
[2018-08-19] MEDS: Cinnamon Bark [Cinnamon] 500 MG PO SCH (08:08)
[2018-08-19] MEDS: Sulfamethoxazole/Trimethoprim 800-160 MG Tab PO SCH ×2 (08:09→17:02)
[2018-08-19] MEDS: Apixaban 2.5 MG Tab PO SCH ×2 (08:09→17:02)
[2018-08-19] MEDS: Folic Acid 1 MG Tab PO SCH (08:10)
[2018-08-19] MEDS: Oxybutynin 5 MG Tab.ER PO SCH (08:10)
[2018-08-19] MEDS: Baclofen 10 MG Tab PO SCH ×3 (08:10→17:02)
[2018-08-19] MEDS: Nystatin Topical Powder 15 GM Bottle TOP SCH ×2 (08:11→19:29)
[2018-08-19] MEDS: SERTRALINE 100 MG PO SCH (08:12)
[2018-08-19] MEDS: HYDROCHLOROTHIAZIDE 12.5 MG PO SCH (08:12)
[2018-08-19] MEDS: Multivitamin Tab PO SCH (08:13)
[2018-08-19] MEDS: LIOTHYRONINE 5 MCG PO SCH (08:14)
[2018-08-19] MEDS: Metoprolol Tartrate 25 MG Tab PO SCH ×2 (08:14→19:25)
[2018-08-19] MEDS: Pregabalin 75 MG Cap PO SCH ×2 (08:15→19:26)
[2018-08-19] MEDS: PHENTERMINE HCL 37.5 MG PO SCH (08:15)
[2018-08-19] MEDS: Polyethylene Glycol 3350 Powder 510 GM Bot PO PRN (10:00)
[2018-08-19] MEDS: predniSONE 5 MG Tab PO SCH (11:29)
[2018-08-19] MEDS ORDERED: Magnesium Hydroxide 400 MG/5 ML Susp 30 ML Cup PO PRN (16:52)
[2018-08-19] MEDS: ALPRAZolam 0.25 MG Tab PO SCH (19:26)
[2018-08-20] MEDS: Oxybutynin 5 MG Tab.ER PO SCH (08:19)
[2018-08-20] MEDS: Sulfamethoxazole/Trimethoprim 800-160 MG Tab PO SCH ×2 (08:20→17:27)
[2018-08-20] MEDS: LIOTHYRONINE 5 MCG PO SCH (08:20)
[2018-08-20] MEDS: Apixaban 2.5 MG Tab PO SCH ×2 (08:20→17:27)
[2018-08-20] MEDS: Metoprolol Tartrate 25 MG Tab PO SCH ×2 (08:21→19:57)
[2018-08-20] MEDS: Levothyroxine 150 MCG Tab PO SCH (08:22)
[2018-08-20] MEDS: CELECOXIB 200 MG PO SCH (08:23)
[2018-08-20] MEDS: Baclofen 10 MG Tab PO SCH ×3 (08:24→17:28)
[2018-08-20] MEDS: HYDROCHLOROTHIAZIDE 12.5 MG PO SCH (08:24)
[2018-08-20] MEDS: Folic Acid 1 MG Tab PO SCH (08:24)
[2018-08-20] MEDS: SERTRALINE 100 MG PO SCH (08:24)
[2018-08-20] MEDS: Cinnamon Bark [Cinnamon] 500 MG PO SCH (08:25)
[2018-08-20] MEDS: Albuterol/Ipratropium 3.0-0.5 MG/3 ML Neb Soln NEB SCH ×2 (08:25→19:56)
[2018-08-20] MEDS: Pregabalin 75 MG Cap PO SCH ×2 (08:28→19:57)
[2018-08-20] MEDS: PHENTERMINE HCL 37.5 MG PO SCH (08:30)
[2018-08-20] MEDS: Multivitamin Tab PO SCH (08:31)
[2018-08-20] MEDS: Nystatin Topical Powder 15 GM Bottle TOP SCH ×2 (11:36→19:58)
[2018-08-20] MEDS: predniSONE 5 MG Tab PO SCH (11:36)
[2018-08-20] MEDS: ALPRAZolam 0.25 MG Tab PO SCH (19:59)
[2018-08-21] MEDS: Levothyroxine 150 MCG Tab PO SCH (08:25)
[2018-08-21] MEDS: LIOTHYRONINE 5 MCG PO SCH (08:26)
[2018-08-21] MEDS: Cinnamon Bark [Cinnamon] 500 MG PO SCH (08:26)
[2018-08-21] MEDS: CELECOXIB 200 MG PO SCH (08:26)
[2018-08-21] MEDS: Albuterol/Ipratropium 3.0-0.5 MG/3 ML Neb Soln NEB SCH ×2 (08:27→20:00)
[2018-08-21] MEDS: Apixaban 2.5 MG Tab PO SCH ×2 (08:27→17:30)
[2018-08-21] MEDS: Folic Acid 1 MG Tab PO SCH (08:30)
[2018-08-21] MEDS: Baclofen 10 MG Tab PO SCH ×3 (08:31→17:30)
[2018-08-21] MEDS: Pregabalin 75 MG Cap PO SCH ×2 (08:34→20:00)
[2018-08-21] MEDS: HYDROCHLOROTHIAZIDE 12.5 MG PO SCH (08:35)
[2018-08-21] MEDS: PHENTERMINE HCL 37.5 MG PO SCH (08:36)
[2018-08-21] MEDS: Oxybutynin 5 MG Tab.ER PO SCH (08:36)
[2018-08-21] MEDS: Multivitamin Tab PO SCH (08:37)
[2018-08-21] MEDS: Sulfamethoxazole/Trimethoprim 800-160 MG Tab PO SCH ×2 (08:37→17:30)
[2018-08-21] MEDS: SERTRALINE 100 MG PO SCH (08:37)
[2018-08-21] MEDS: Nystatin Topical Powder 15 GM Bottle TOP SCH (08:38)
[2018-08-21] MEDS: Metoprolol Tartrate 25 MG Tab PO SCH ×2 (10:28→20:00)
[2018-08-21] MEDS: predniSONE 5 MG Tab PO SCH (11:27)
[2018-08-21] MEDS: ALPRAZolam 0.25 MG Tab PO SCH (20:01)
[2018-08-21] MEDS: [UNRECOGNIZED DRUG - OTHER] SUBCUT SCH (20:03)
[2018-08-22] MEDS: Levothyroxine 150 MCG Tab PO SCH (07:55)
[2018-08-22] MEDS: LIOTHYRONINE 5 MCG PO SCH (07:55)
[2018-08-22] MEDS: Apixaban 2.5 MG Tab PO SCH ×2 (07:56→17:22)
[2018-08-22] MEDS: Albuterol/Ipratropium 3.0-0.5 MG/3 ML Neb Soln NEB SCH ×2 (07:56→19:30)
[2018-08-22] MEDS: CELECOXIB 200 MG PO SCH (07:56)
[2018-08-22] MEDS: Sulfamethoxazole/Trimethoprim 800-160 MG Tab PO SCH ×2 (07:56→17:22)
[2018-08-22] MEDS: Cinnamon Bark [Cinnamon] 500 MG PO SCH (07:56)
[2018-08-22] MEDS: Baclofen 10 MG Tab PO SCH ×3 (07:57→17:23)
[2018-08-22] MEDS: Folic Acid 1 MG Tab PO SCH (07:57)
[2018-08-22] MEDS: Metoprolol Tartrate 25 MG Tab PO SCH ×2 (07:58→19:32)
[2018-08-22] MEDS: Pregabalin 75 MG Cap PO SCH ×2 (07:58→19:33)
[2018-08-22] MEDS: HYDROCHLOROTHIAZIDE 12.5 MG PO SCH (07:59)
[2018-08-22] MEDS: PHENTERMINE HCL 37.5 MG PO SCH (07:59)
[2018-08-22] MEDS: SERTRALINE 100 MG PO SCH (08:00)
[2018-08-22] MEDS: Multivitamin Tab PO SCH (08:00)
[2018-08-22] MEDS: Oxybutynin 5 MG Tab.ER PO SCH (08:00)
[2018-08-22] MEDS: predniSONE 5 MG Tab PO SCH (11:25)
[2018-08-22] MEDS: ALPRAZolam 0.25 MG Tab PO SCH (19:33)
[2018-08-23] MEDS: Levothyroxine 150 MCG Tab PO SCH (06:47)
[2018-08-23] MEDS: Cinnamon Bark [Cinnamon] 500 MG PO SCH (08:03)
[2018-08-23] MEDS: CELECOXIB 200 MG PO SCH (08:03)
[2018-08-23] MEDS: Albuterol/Ipratropium 3.0-0.5 MG/3 ML Neb Soln NEB SCH ×2 (08:03→19:22)
[2018-08-23] MEDS: Sulfamethoxazole/Trimethoprim 800-160 MG Tab PO SCH (08:04)
[2018-08-23] MEDS: Apixaban 2.5 MG Tab PO SCH ×2 (08:04→17:27)
[2018-08-23] MEDS: Folic Acid 1 MG Tab PO SCH (08:05)
[2018-08-23] MEDS: Baclofen 10 MG Tab PO SCH ×3 (08:06→17:29)
[2018-08-23] MEDS: LIOTHYRONINE 5 MCG PO SCH (08:06)
[2018-08-23] MEDS: Metoprolol Tartrate 25 MG Tab PO SCH ×2 (08:06→19:22)
[2018-08-23] MEDS: Pregabalin 75 MG Cap PO SCH ×2 (08:07→19:24)
[2018-08-23] MEDS: HYDROCHLOROTHIAZIDE 12.5 MG PO SCH (08:08)
[2018-08-23] MEDS: PHENTERMINE HCL 37.5 MG PO SCH (08:08)
[2018-08-23] MEDS: Oxybutynin 5 MG Tab.ER PO SCH (08:08)
[2018-08-23] MEDS: Cholecalciferol (Vitamin D3) 1,000 Unit Tab PO SCH (08:09)
[2018-08-23] MEDS: Multivitamin Tab PO SCH (08:09)
[2018-08-23] MEDS: SERTRALINE 100 MG PO SCH (08:09)
[2018-08-23] MEDS: predniSONE 5 MG Tab PO SCH (11:32)
[2018-08-23] MEDS: ALPRAZolam 0.25 MG Tab PO SCH (19:23)
[2018-08-23] MEDS: [UNRECOGNIZED DRUG - OTHER] SUBCUT SCH (20:36)
[2018-08-23] MEDS: Acetaminophen 325 MG Tab PO PRN (20:42)
[2018-08-24] MEDS: Levothyroxine 150 MCG Tab PO SCH (07:54)
[2018-08-24] MEDS: Albuterol/Ipratropium 3.0-0.5 MG/3 ML Neb Soln NEB SCH (07:55)
[2018-08-24] MEDS: CELECOXIB 200 MG PO SCH (07:55)
[2018-08-24] MEDS: Cinnamon Bark [Cinnamon] 500 MG PO SCH (07:55)
[2018-08-24] MEDS: Apixaban 2.5 MG Tab PO SCH (07:56)
[2018-08-24] MEDS: Folic Acid 1 MG Tab PO SCH (07:56)
[2018-08-24] MEDS: Baclofen 10 MG Tab PO SCH ×2 (07:57→11:08)
[2018-08-24] MEDS: LIOTHYRONINE 5 MCG PO SCH (07:57)
[2018-08-24] MEDS: HYDROCHLOROTHIAZIDE 12.5 MG PO SCH (07:58)
[2018-08-24] MEDS: Metoprolol Tartrate 25 MG Tab PO SCH (07:58)
[2018-08-24] MEDS: SERTRALINE 100 MG PO SCH (07:59)
[2018-08-24] MEDS: Oxybutynin 5 MG Tab.ER PO SCH (07:59)
[2018-08-24] MEDS: Cholecalciferol (Vitamin D3) 1,000 Unit Tab PO SCH (07:59)
[2018-08-24] MEDS: Multivitamin Tab PO SCH (08:00)
[2018-08-24] MEDS: Pregabalin 75 MG Cap PO SCH (08:01)
[2018-08-24] MEDS: PHENTERMINE HCL 37.5 MG PO SCH (08:01)
[2018-08-24 08:02] VITALS: BP 123/58
[2018-08-24] MEDS: predniSONE 5 MG Tab PO SCH (11:09)
--- NOTE | 2018-08-24 18:35 | PCM.PN ---
- General Info Date of Service: 08/24/18 Admission Dx/Problem (Free Text): Admission Diagnosis/Problem Admission Diagnosis/Problem Acute postoperative pain Functional Status: Reports: Pain Controlled, Tolerating Diet, Ambulating - Review of Systems General: Reports: No Symptoms HEENT: Reports: No Symptoms Pulmonary: Reports: No Symptoms Cardiovascular: Reports: No Symptoms Gastrointestinal: Reports: No Symptoms Genitourinary: Reports: No Symptoms Musculoskeletal: Reports: No Symptoms Skin: Reports: No Symptoms Neurological: Reports: No Symptoms Psychiatric: Reports: No Symptoms - Patient Data Vitals - Most Recent: Last Vital Signs Temp 97.8 F 08/24/18 08:00 Pulse 60 08/24/18 08:00 Resp 16 08/24/18 08:00 BP 123/58 L 08/24/18 08:00 Pulse Ox 96 08/24/18 08:00 Weight - Most Recent: 309 lb 6.4 oz I&O - Last 24 Hours: Intake & Output 08/24/18 08/24/18 08/24/18 06:59 14:59 22:59 Intake Total 300 Balance 300 Lab Results Last 24 Hours: Laboratory Results - last 24 hr 08/24/18 Range/Units 12:58 Specimen Type Urincc Urine Color Yellow Urine Appearance Clear Urine pH 5.5 (5.0-9.0) Ur Specific [place] 1.015 (1.005-1.030) Urine Protein Negative (NEGATIVE) mg/dL Urine Glucose (UA) Negative (NEGATIVE) mg/dL Urine Ketones Negative (NEGATIVE) mg/dL Urine Occult Blood Negative (NEGATIVE) Urine Nitrite Negative (NEGATIVE) Urine Bilirubin Negative (NEGATIVE) Urine Urobilinogen 0.2 (0.2-1.0) E.U./dL Ur Leukocyte Esterase Negative (NEGATIVE) Urine RBC 0-5 /HPF Urine WBC 0-5 /HPF Ur Epithelial Cells Few /LPF Amorphous Sediment Few (0/HPF) /HPF Urine Bacteria Few (NONE TO FEW) /HPF Hyaline Casts Rare H (NEGATIVE) /LPF Stephon Results Last 24 Hours: Microbiology 08/18/18 14:29 Bacterial ID and Susceptibility - Final Urine Enterobacter Cloacae Complex Med Orders - Current: Current Medications Discontinued Medications Acetaminophen (Tylenol) 650 mg PO Q4H PRN PRN Reason: Pain Last Admin: 08/23/18 20:42 Dose: 650 mg Albuterol (Ventolin Hfa) 0 gm INH Q4HR PRN PRN Reason: sob Albuterol/Ipratropium (Duoneb 3.0-0.5 Mg/3 Ml) 3 ml NEB QIDRT [facility] Last Admin: 08/12/18 12:05 Dose: Not Given Albuterol/Ipratropium (Duoneb 3.0-0.5 Mg/3 Ml) 3 ml NEB BIDRT [facility] Last Admin: 08/24/18 07:55 Dose: 3 ml Alprazolam (Xanax) 0.25 mg PO BEDTIME [facility] Last Admin: 08/23/18 19:23 Dose: 0.25 mg Apixaban (Eliquis) 2.5 mg PO BID [facility] Stop: 09/12/18 18:01 Last Admin: 08/24/18 07:56 Dose: 2.5 mg Azathioprine (Imuran) 50 mg PO BID [facility] Last Admin: 08/24/18 07:56 Dose: 50 mg Baclofen (Lioresal) 10 mg PO TID [facility] Last Admin: 08/24/18 11:08 Dose: 10 mg Cholecalciferol (Vitamin D3) 5,000 units PO DAILY [facility] Last Admin: 08/24/18 07:59 Dose: 5,000 units Clobetasol Propionate (Clobetasol Propionate 0.05%) 0 gm TOP BID PRN PRN Reason: Rash Folic Acid (Folic Acid) 1 mg PO DAILY [facility] Last Admin: 08/24/18 07:56 Dose: 1 mg Hydrochlorothiazide (Hydrochlorothiazide) 12.5 mg PO DAILY [facility] Levothyroxine Sodium (Levothyroxine) 150 mcg PO ACBREAKFAST [facility] Last Admin: 08/24/18 07:54 Dose: 150 mcg Magnesium Hydroxide (Milk Of Magnesia) 30 ml PO DAILY PRN PRN Reason: Constipation Last Admin: 08/19/18 17:03 Dose: 30 ml Metoprolol Tartrate (Lopressor) 25 mg PO Q12HR [facility] Last Admin: 08/24/18 07:58 Dose: 25 mg Multivitamins/Minerals/Vitamin C (Tab-A-Renate) 1 tab PO DAILY [facility] Last Admin: 08/24/18 08:00 Dose: 1 tab Celecoxib [Celebrex] (200mg Capsules) 400 mg PO DAILY [facility] Last Admin: 08/24/18 07:55 Dose: 400 mg Cinnamon Bark [ (Cinnamon] 500 Mg) 500 mg PO DAILY [facility] Last Admin: 08/24/18 07:55 Dose: 500 mg Fluticasone/Vilanterol [Breo Ellipta 100-25 Mcg Inhalatio 1 puff IH DAILY [facility] Last Admin: 08/24/18 07:56 Dose: 1 puff Interferon Beta-1a W /Albumin [Rebif] 44 Mcg Injection 44 mcg SUBCUT MOWEFR@ 2100 [facility] Last Admin: 08/23/18 20:36 Dose: 44 mcg Liothyronine [ (Cytomel] 5 Mcg Tabs) 5 mcg PO DAILY [facility] Last Admin: 08/24/18 07:57 Dose: 5 mcg Phentermine Hcl [ Phentermine Hcl] 37. 5 Mg 37.5 mg PO DAILY [facility] Last Admin: 08/24/18 08:01 Dose: 37.5 mg Sertraline [Zoloft] (100 Mg Tablets) 100 mg PO DAILY [facility] Last Admin: 08/24/18 07:59 Dose: 100 mg Triamcinolone (Acetonide In Orabase) 1 applic TOP BID PRN PRN Reason: Canker Sore Hydrochlorothiazide (12.5mg Tablets) 1 each PO DAILY [facility] Last Admin: 08/24/18 07:58 Dose: 1 each Nystatin (Nystop) 0 gm TOP BID [facility] Last Admin: 08/17/18 08:15 Dose: 1 applic Nystatin (Nystop) 0 gm TOP Q12HR [facility] Last Admin: 08/21/18 08:38 Dose: 1 applic Oxybutynin Chloride (Oxybutynin Er) 5 mg PO DAILY [facility] Last Admin: 08/24/18 07:59 Dose: 5 mg Polyethylene Glycol (Miralax) 17 gm PO DAILY PRN PRN Reason: Constipation Last Admin: 08/19/18 10:00 Dose: 17 gram Potassium Chloride (Klor-Con M20) 20 meq PO BID [facility] Potassium Chloride (Klor-Con 10) 20 meq PO BID [facility] Last Admin: 08/18/18 08:07 Dose: 20 meq Prednisone (Prednisone) 5 mg PO DAILY [facility] Prednisone (Prednisone) 5 mg PO DAILY@1800 [facility] Last Admin: 08/11/18 18:52 Dose: 5 mg Prednisone (Prednisone) 5 mg PO DAILY@1200 [facility] Last Admin: 08/24/18 11:09 Dose: 5 mg Pregabalin (Lyrica) 75 mg PO DAILY [facility] Last Admin: 08/24/18 08:01 Dose: 75 mg Pregabalin (Lyrica) 150 mg PO BEDTIME [facility] Last Admin: 08/23/18 19:24 Dose: 150 mg Sulfasalazine (Sulfasalazine) 500 mg PO DAILY PRN PRN Reason: Abdominal Pain Tramadol HCl (Ultram) 100 mg PO Q6HR PRN PRN Reason: Moderate Pain Last Admin: 08/14/18 09:26 Dose: 50 mg Tramadol HCl (Ultram) 50 mg PO Q6H PRN PRN Reason: Moderate Pain Last Admin: 08/18/18 09:27 Dose: 50 mg Trimethoprim/Sulfamethoxazole (Septra Ds) 1 tab PO BID [facility] Stop: 08/23/18 08:01 Last Admin: 08/23/18 08:04 Dose: 1 tab Trolamine Salicylate (Aspercreme 10%) 0 gm TOP Q1H PRN PRN Reason: Pain Last Admin: 08/15/18 10:44 Dose: 1 applic - Exam Quality Assessment: DVT Prophylaxis General: Alert, Oriented HEENT: Mucous Membr. Moist/[place] Neck: Trachea Midline, No JVD Lungs: Clear to Auscultation, Normal Respiratory Effort Cardiovascular: Regular Rate, Regular Rhythm GI/Abdominal Exam: Soft, Non-Tender, No Distention (Female) Exam: Deferred Back Exam: Normal Inspection Extremities: Normal Inspection, Normal Capillary Refill, Pedal Edema Skin: Warm, Dry, Intact Wound/Incisions: Healing Well Neurological: No New Focal Deficit Psy/Mental Status: Alert, Normal Affect, Normal Mood - Problem List & Annotations (1) Orthopedic aftercare for joint replacement SNOMED Code(s): 552808304, 460358970 Code(s): Z47.1 - AFTERCARE FOLLOWING JOINT REPLACEMENT SURGERY Status: Acute Priority: High Qualifiers: Joint replacement surgery site: hip Laterality: left Qualified Code(s): Z47.1 - Aftercare following joint replacement surgery; Z96.642 - Presence of left artificial hip joint (2) Asthma SNOMED Code(s): 911915376 Code(s): J45.909 - UNSPECIFIED ASTHMA, UNCOMPLICATED Status: Acute (3) COPD (chronic obstructive pulmonary disease) SNOMED Code(s): 33362402 Code(s): J44.9 - CHRONIC OBSTRUCTIVE PULMONARY DISEASE, UNSPECIFIED Status : Chronic Priority: Medium Annotation/Comment:: No recent fever or bronchitic type symptoms. Stable by history. (4) Hypertension SNOMED Code(s): 23007459 Code(s): I10 - ESSENTIAL (PRIMARY) HYPERTENSION Status: Chronic Priority : Medium Qualifiers: (5) Hypothyroidism (acquired) SNOMED Code(s): 117220362 Code(s): E03.9 - HYPOTHYROIDISM, UNSPECIFIED Status: Chronic Priority: High Annotation/Comment:: She does follow closely with [facility]. (6) Mixed anxiety depressive disorder SNOMED Code(s): 299503883 Code(s): F41.8 - OTHER SPECIFIED ANXIETY DISORDERS Status: Chronic Priority: Medium (7) Multiple sclerosis SNOMED Code(s): 40374092 Code(s): G35 - MULTIPLE SCLEROSIS Status: Chronic Priority: High Annotation/Comment:: Progressive weakness secondary to her MS during the last couple of months as above. Minor fall today with no significant injury. One dose of IV Solu-Medrol to be given shortly after admission with further neurology consultation, medication changes, etc. depending on her clinical course. She was strongly advised to continue her physical therapy including during the winter months. 06/23/18 She does follow closely with [facility], rheumatology, orthopedic surgeon, pain clinic, and endocrinology. (8) Obesity (BMI 35.0-39.9 without comorbidity) SNOMED Code(s): 129261620, 915508264 Code(s): E66.9 - OBESITY, UNSPECIFIED Status: Chronic Priority: Medium Annotation/Comment:: Persistent obesity despite gastric lap banding as above. Weight loss in moderation advisable. (9) Osteoarthritis SNOMED Code(s): 885504508 Code(s): M19.90 - UNSPECIFIED OSTEOARTHRITIS, UNSPECIFIED SITE Status: Chronic Priority: Medium Annotation/Comment:: Stable chronic low back pain by history with no significant injury from fall as above. 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 Here in [facility] swing bed status for PT-OT for strengthening, and improve function with ADLs. 08/24/18 Arsen Oropeza MD Doing well. Ready for discharge.
--- NOTE | 2018-08-24 18:37 | PCM.DCSUM1 ---
Discharge Summary - Hospital Course Diagnosis: Stroke: No - Discharge Data Discharge Date: 08/24/18 Discharge Disposition: Home, W Home Health Agency 06 Condition: Good - Discharge Diagnosis/Problem(s) (1) Orthopedic aftercare for joint replacement SNOMED Code(s): 290572402, 068175470 ICD Code: Z47.1 - AFTERCARE FOLLOWING JOINT REPLACEMENT SURGERY Status: Acute Priority: High Qualifiers: Joint replacement surgery site: hip Laterality: left Qualified Code(s): Z47.1 - Aftercare following joint replacement surgery; Z96.642 - Presence of left artificial hip joint (2) Asthma SNOMED Code(s): 770287572 ICD Code: J45.909 - UNSPECIFIED ASTHMA, UNCOMPLICATED Status: Acute (3) COPD (chronic obstructive pulmonary disease) SNOMED Code(s): 90823891 ICD Code: J44.9 - CHRONIC OBSTRUCTIVE PULMONARY DISEASE, UNSPECIFIED Status : Chronic Priority: Medium Problem Details: No recent fever or bronchitic type symptoms. Stable by history. (4) Hypertension SNOMED Code(s): 08994661 ICD Code: I10 - ESSENTIAL (PRIMARY) HYPERTENSION Status: Chronic Priority : Medium Qualifiers: (5) Hypothyroidism (acquired) SNOMED Code(s): 742185867 ICD Code: E03.9 - HYPOTHYROIDISM, UNSPECIFIED Status: Chronic Priority: High Problem Details: She does follow closely with [facility]. (6) Mixed anxiety depressive disorder SNOMED Code(s): 547939895 ICD Code: F41.8 - OTHER SPECIFIED ANXIETY DISORDERS Status: Chronic Priority: Medium (7) Multiple sclerosis SNOMED Code(s): 94148082 ICD Code: G35 - MULTIPLE SCLEROSIS Status: Chronic Priority: High Problem Details: Progressive weakness secondary to her MS during the last couple of months as above. Minor fall today with no significant injury. One dose of IV Solu-Medrol to be given shortly after admission with further neurology consultation, medication changes, etc. depending on her clinical course. She was strongly advised to continue her physical therapy including during the winter months. 06/23/18 She does follow closely with [facility], rheumatology, orthopedic surgeon, pain clinic, and endocrinology. (8) Obesity (BMI 35.0-39.9 without comorbidity) SNOMED Code(s): 246863184, 776630980 ICD Code: E66.9 - OBESITY, UNSPECIFIED Status: Chronic Priority: Medium Problem Details: Persistent obesity despite gastric lap banding as above. Weight loss in moderation advisable. (9) Osteoarthritis SNOMED Code(s): 881204167 ICD Code: M19.90 - UNSPECIFIED OSTEOARTHRITIS, UNSPECIFIED SITE Status: Chronic Priority: Medium Problem Details: Stable chronic low back pain by history with no significant injury from fall as above. 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 SNOMED Code(s): 235521735 ICD Code: D89.89 - OTH DISRD INVOLVING THE IMMUNE MECHANISM, NEC Status: Chronic Priority: Medium - Patient Summary/Data Consults: Consultations 08/11/18 13:46 Consult to Case Management/[employer] [CONS] Routine OT Evaluation and Treatment [CONS] Routine PT Evaluation and Treatment [CONS] Routine - Patient Instructions Diet: Regular Diet as Tolerated Activity: As Tolerated Driving: Do Not Drive Showering/Bathing: May Shower Wound/Incision Care: Keep Operative Site/Wound Site Clean and Dry Notify Provider of: Fever, Increased Pain, Swelling and Redness, Drainage, Nausea and/or Vomiting Other/Special Instructions: Keep your follow-up appointments as scheduled. - Discharge Plan *PRESCRIPTION DRUG MONITORING PROGRAM REVIEWED*: Not Applicable *COPY OF PRESCRIPTION DRUG MONITORING REPORT IN PATIENT YARELI: Not Applicable Prescriptions/Med Rec: traMADol [Ultram] 100 mg PO Q6HR PRN #60 tablet PRN Reason: Pain Acetaminophen [Tylenol Arthritis] 650 mg PO TID PRN #100 tablet.er PRN Reason: Pain Apixaban [Eliquis] 2.5 mg PO BID #15 tablet Fluconazole [Diflucan] 100 mg PO DAILY PRN #30 tablet PRN Reason: Other Sennosides [Senna] 1 tab PO DAILY PRN #100 tab PRN Reason: Constipation Home Medications: Home Meds ALPRAZolam [Alprazolam] 0.25 mg PO BEDTIME 12/25/13 [History] Albuterol [Proventil HFA] 2 puff INH Q4HR PRN 12/25/13 [History] Baclofen 10 mg PO TID 12/25/13 [History] Clobetasol [Clobetasol Propionate 0.05% Cream] 1 applic TOP BID PRN 12/25/13 [ History] Folic Acid 1 mg PO DAILY 12/25/13 [History] Interferon Beta-1a w/Albumin [Rebif] 44 mcg SUBCUT MOWEFR@2100 12/25/13 [History ] Metoprolol Tartrate [Lopressor] 25 mg PO BID 12/25/13 [History] Multivitamin [Multi-Vitamin Daily] 1 tab PO DAILY 12/25/13 [History] Potassium Chloride 20 meq PO BID 12/25/13 [History] Sertraline [Zoloft] 100 mg PO DAILY 12/25/13 [History] azaTHIOprine [Azathioprine] 1 tab PO BID 12/25/13 [History] Celecoxib [CeleBREX] 400 mg PO DAILY 04/02/14 [History] hydroCHLOROthiazide [Hydrochlorothiazide] 12.5 mg PO DAILY 11/15/14 [History] Albuterol/Ipratropium [DuoNeb 3.0-0.5 MG/3 ML] 3 ml NEB Q6HR 06/22/18 [History] Cinnamon Bark [Cinnamon] 500 mg PO DAILY 06/22/18 [History] Fluticasone/Vilanterol [Breo Ellipta 100-25 MCG Inhalation Kit] 1 puff IH DAILY 06/22/18 [History] Liothyronine [Cytomel] 5 mcg PO DAILY 06/22/18 [History] Oxybutynin [Oxybutynin ER] 5 mg PO DAILY 06/22/18 [History] Phentermine HCl 37.5 mg PO DAILY 06/22/18 [History] Pregabalin [Lyrica] 75 mg PO DAILY 06/22/18 [History] Pregabalin [Lyrica] 150 mg PO BEDTIME 06/22/18 [History] Triamcinolone Acetonide [Kenalog 0.1% Crm] 1 applic TOP BID PRN 06/22/18 [ History] sulfaSALAzine 500 mg PO DAILY PRN 06/22/18 [History] Levothyroxine 150 mcg PO ACBREAKFAST 08/11/18 [History] Nystatin [Nyamyc] 1 applic TOP BID 08/11/18 [History] Polyethylene Glycol 3350 [Miralax] 17 gm PO DAILY PRN 08/11/18 [History] Acetaminophen [Tylenol Arthritis] 650 mg PO TID PRN #100 tablet.er 08/24/18 [Rx] Apixaban [Eliquis] 2.5 mg PO BID #15 tablet 08/24/18 [Rx] Cholecalciferol (Vitamin D3) [Vitamin D3] 5,000 units PO DAILY tablet 08/24/18 [Rx] Fluconazole [Diflucan] 100 mg PO DAILY PRN #30 tablet 08/24/18 [Rx] Sennosides [Senna] 1 tab PO DAILY PRN #100 tab 08/24/18 [Rx] Trolamine Salicylate/Aloe Vera [Aspercreme 10%] 0 gm TOP Q1H PRN tube 08/24/18 [Rx] predniSONE 5 mg PO DAILY@1200 tablet 08/24/18 [Rx] traMADol [Ultram] 100 mg PO Q6HR PRN #60 tablet 08/24/18 [Rx] Oxygen Therapy Mode: Room Air - Discharge Summary/Plan Comment DC Time >30 min.: No - Patient Data Vitals - Most Recent: Last Vital Signs Temp 97.8 F 08/24/18 08:00 Pulse 60 08/24/18 08:00 Resp 16 08/24/18 08:00 BP 123/58 L 08/24/18 08:00 Pulse Ox 96 08/24/18 08:00 Weight - Most Recent: 309 lb 6.4 oz I&O - Last 24 hours: Intake & Output 08/24/18 08/24/18 08/24/18 06:59 14:59 22:59 Intake Total 300 Balance 300 Lab Results - Last 24 hrs: Laboratory Results - last 24 hr 08/24/18 Range/Units 12:58 Specimen Type Urincc Urine Color Yellow Urine Appearance Clear Urine pH 5.5 (5.0-9.0) Ur Specific [place] 1.015 (1.005-1.030) Urine Protein Negative (NEGATIVE) mg/dL Urine Glucose (UA) Negative (NEGATIVE) mg/dL Urine Ketones Negative (NEGATIVE) mg/dL Urine Occult Blood Negative (NEGATIVE) Urine Nitrite Negative (NEGATIVE) Urine Bilirubin Negative (NEGATIVE) Urine Urobilinogen 0.2 (0.2-1.0) E.U./dL Ur Leukocyte Esterase Negative (NEGATIVE) Urine RBC 0-5 /HPF Urine WBC 0-5 /HPF Ur Epithelial Cells Few /LPF Amorphous Sediment Few (0/HPF) /HPF Urine Bacteria Few (NONE TO FEW) /HPF Hyaline Casts Rare H (NEGATIVE) /LPF [facility] Results - Last 24 hrs: Microbiology 08/18/18 14:29 Bacterial ID and Susceptibility - Final Urine Enterobacter Cloacae Complex Med Orders - Current: Current Medications Discontinued Medications Acetaminophen (Tylenol) 650 mg PO Q4H PRN PRN Reason: Pain Last Admin: 08/23/18 20:42 Dose: 650 mg Albuterol (Ventolin Hfa) 0 gm INH Q4HR PRN PRN Reason: sob Albuterol/Ipratropium (Duoneb 3.0-0.5 Mg/3 Ml) 3 ml NEB QIDRT [facility] Last Admin: 08/12/18 12:05 Dose: Not Given Albuterol/Ipratropium (Duoneb 3.0-0.5 Mg/3 Ml) 3 ml NEB BIDRT [facility] Last Admin: 08/24/18 07:55 Dose: 3 ml Alprazolam (Xanax) 0.25 mg PO BEDTIME [facility] Last Admin: 08/23/18 19:23 Dose: 0.25 mg Apixaban (Eliquis) 2.5 mg PO BID [facility] Stop: 09/12/18 18:01 Last Admin: 08/24/18 07:56 Dose: 2.5 mg Azathioprine (Imuran) 50 mg PO BID [facility] Last Admin: 08/24/18 07:56 Dose: 50 mg Baclofen (Lioresal) 10 mg PO TID [facility] Last Admin: 08/24/18 11:08 Dose: 10 mg Cholecalciferol (Vitamin D3) 5,000 units PO DAILY [facility] Last Admin: 08/24/18 07:59 Dose: 5,000 units Clobetasol Propionate (Clobetasol Propionate 0.05%) 0 gm TOP BID PRN PRN Reason: Rash Folic Acid (Folic Acid) 1 mg PO DAILY [facility] Last Admin: 08/24/18 07:56 Dose: 1 mg Hydrochlorothiazide (Hydrochlorothiazide) 12.5 mg PO DAILY [facility] Levothyroxine Sodium (Levothyroxine) 150 mcg PO ACBREAKFAST [facility] Last Admin: 08/24/18 07:54 Dose: 150 mcg Magnesium Hydroxide (Milk Of Magnesia) 30 ml PO DAILY PRN PRN Reason: Constipation Last Admin: 08/19/18 17:03 Dose: 30 ml Metoprolol Tartrate (Lopressor) 25 mg PO Q12HR [facility] Last Admin: 08/24/18 07:58 Dose: 25 mg Multivitamins/Minerals/Vitamin C (Tab-A-Renate) 1 tab PO DAILY [facility] Last Admin: 08/24/18 08:00 Dose: 1 tab Celecoxib [Celebrex] (200mg Capsules) 400 mg PO DAILY [facility] Last Admin: 08/24/18 07:55 Dose: 400 mg Cinnamon Bark [ (Cinnamon] 500 Mg) 500 mg PO DAILY [facility] Last Admin: 08/24/18 07:55 Dose: 500 mg Fluticasone/Vilanterol [Breo Ellipta 100-25 Mcg Inhalatio 1 puff IH DAILY [facility] Last Admin: 08/24/18 07:56 Dose: 1 puff Interferon Beta-1a W /Albumin [Rebif] 44 Mcg Injection 44 mcg SUBCUT MOWEFR@ 2100 [facility] Last Admin: 08/23/18 20:36 Dose: 44 mcg Liothyronine [ (Cytomel] 5 Mcg Tabs) 5 mcg PO DAILY [facility] Last Admin: 08/24/18 07:57 Dose: 5 mcg Phentermine Hcl [ Phentermine Hcl] 37. 5 Mg 37.5 mg PO DAILY [facility] Last Admin: 08/24/18 08:01 Dose: 37.5 mg Sertraline [Zoloft] (100 Mg Tablets) 100 mg PO DAILY [facility] Last Admin: 08/24/18 07:59 Dose: 100 mg Triamcinolone (Acetonide In Orabase) 1 applic TOP BID PRN PRN Reason: Canker Sore Hydrochlorothiazide (12.5mg Tablets) 1 each PO DAILY [facility] Last Admin: 08/24/18 07:58 Dose: 1 each Nystatin (Nystop) 0 gm TOP BID [facility] Last Admin: 08/17/18 08:15 Dose: 1 applic Nystatin (Nystop) 0 gm TOP Q12HR [facility] Last Admin: 08/21/18 08:38 Dose: 1 applic Oxybutynin Chloride (Oxybutynin Er) 5 mg PO DAILY [facility] Last Admin: 08/24/18 07:59 Dose: 5 mg Polyethylene Glycol (Miralax) 17 gm PO DAILY PRN PRN Reason: Constipation Last Admin: 08/19/18 10:00 Dose: 17 gram Potassium Chloride (Klor-Con M20) 20 meq PO BID [facility] Potassium Chloride (Klor-Con 10) 20 meq PO BID [facility] Last Admin: 08/18/18 08:07 Dose: 20 meq Prednisone (Prednisone) 5 mg PO DAILY [facility] Prednisone (Prednisone) 5 mg PO DAILY@1800 [facility] Last Admin: 08/11/18 18:52 Dose: 5 mg Prednisone (Prednisone) 5 mg PO DAILY@1200 [facility] Last Admin: 08/24/18 11:09 Dose: 5 mg Pregabalin (Lyrica) 75 mg PO DAILY [facility] Last Admin: 08/24/18 08:01 Dose: 75 mg Pregabalin (Lyrica) 150 mg PO BEDTIME [facility] Last Admin: 08/23/18 19:24 Dose: 150 mg Sulfasalazine (Sulfasalazine) 500 mg PO DAILY PRN PRN Reason: Abdominal Pain Tramadol HCl (Ultram) 100 mg PO Q6HR PRN PRN Reason: Moderate Pain Last Admin: 08/14/18 09:26 Dose: 50 mg Tramadol HCl (Ultram) 50 mg PO Q6H PRN PRN Reason: Moderate Pain Last Admin: 08/18/18 09:27 Dose: 50 mg Trimethoprim/Sulfamethoxazole (Septra Ds) 1 tab PO BID [facility] Stop: 08/23/18 08:01 Last Admin: 08/23/18 08:04 Dose: 1 tab Trolamine Salicylate (Aspercreme 10%) 0 gm TOP Q1H PRN PRN Reason: Pain Last Admin: 08/15/18 10:44 Dose: 1 applic *Q Meaningful Use (DIS) - VTE *Q VTE Mechanical Contraindications *Q: At Risk for Falls
== END 2018-08-24 15:15 | disposition home health service (06) | DRG 862 ==
LOC: LL.SWG 12:59
PROVIDERS: ADMIT Family Medicine; ATTEND Family Medicine
DX: Z47.1 Aftercare following joint replacement surgery (principal); J44.9 Chronic obstructive pulmonary disease, unspecified; I10 Essential (primary) hypertension; E03.9 Hypothyroidism, unspecified; F41.8 Other specified anxiety disorders; G35 Multiple sclerosis; Z96.642 Presence of left artificial hip joint; E66.9 Obesity, unspecified; M19.90 Unspecified osteoarthritis, unspecified site; D89.89 Other specified disorders involving the immune mechanism, not elsewhere classified; N30.00 Acute cystitis without hematuria; G89.29 Other chronic pain; M54.5 Low back pain; H54.7 Unspecified visual loss; E78.00 Pure hypercholesterolemia, unspecified; E78.5 Hyperlipidemia, unspecified; G47.30 Sleep apnea, unspecified; G25.81 Restless legs syndrome; K59.09 Other constipation; M06.9 Rheumatoid arthritis, unspecified; D64.9 Anemia, unspecified; Z91.14 Patient's other noncompliance with medication regimen; Z87.442 Personal history of urinary calculi; Z90.710 Acquired absence of both cervix and uterus; Z98.51 Tubal ligation status; Z90.721 Acquired absence of ovaries, unilateral; Z87.891 Personal history of nicotine dependence; Z90.49 Acquired absence of other specified parts of digestive tract
CPT/HCPCS: 36415; 80048; 81001; 85025; 87086; 87088; 87186; 94640; 97110-GO; 97110-GP; 97112-GP; 97116-GP; 97162-GP; 97165-GO; 97530-GO; 97530-GP; 97535-GO; A9270-GY; J7500; J7620-GY

== ENCOUNTER 2019-03-06 11:33 | Inpatient (IN) | payer BC ==
[2019-03-06] MEDS ORDERED: Bisacodyl 5 MG Tab PO PRN (15:52)
[2019-03-06] MEDS ORDERED: Polyethylene Glycol 3350 Powder 510 GM Bot PO PRN (15:52)
[2019-03-06] MEDS ORDERED: BETAMETHASONE DIPROPIONATE TOP PRN (15:52)
[2019-03-06] MEDS ORDERED: sulfaSALAzine 500 MG Tab PO PRN (15:52)
[2019-03-06] MEDS ORDERED: Albuterol 8 GM Inhaler INH PRN (16:00)
--- OUTSIDE RECORDS SUMMARY | 2019-03-06 16:09 | XMSREPORT ---
:1955 Author Organization [facility] Address [address] [place] [address] Care Team Providers Name Role Phone [facility] Unavailable Unavailable Arsen-Isabell Oropeza MD Primary Care Provider Provider, No Attributed RESOURCE Attributed Provider Unavailable Reason for Visit Reason Comments Auth/Cert (Routine) Status Reason Specialty Diagnoses / Procedures Referred By Contact Referred To Contact Diagnoses Other specific arthropathies, not elsewhere classified, left shoulder Yonathan Garcia, Procedures ARTHROPLASTY GLENOHUMERAL JOINT TOTAL SARWAT LUDWIG [address] [place] [address] Encounter Details Date Type Department Care Team Description 03/01/2019 - Hospital Encounter [facility] Radha, Rotator cuff 03/06/[address] MD Yonathan arthropathy of left [address] [place] [address] [place], [place] [phone] [id number] [phone] Allergies Active Allergy Reactions Severity Noted Date Comments Other: See Comments Nausea and Vomiting 10/05/2011 Pt states she doesn't want to be prescribed any generic pain medications, they make her sick. (GI) documented as of this encounter (statuses as of 03/06/2019) Medications Medication Sig Dispensed Refills Start End [...] 0 Active mouth 1 time per day hydroCHLOROthiazide Take 1 tablet 30 tablet 0 [...] time per day myositis type, unspecified site predniSONE 5 mg Take 1 tablet (5 90 tablet 1 Active tabletIndications: mg) by mouth 1 019 Antisynthetase time per day syndrome (HCC) albuterol HFA Inhale 2 puffs 1 Inhaler 11 Active (PROVENTIL,PROAIR,VENT orally Every 4 019 HUMBERTO) 108 (90 Base) hours as needed MCG/ACT for shortness of inhalerIndications: breath, wheezing Mild persistent asthma or cough Shake without complication well before using. sulfaSALAzine Take 500 mg by 0 Active (AZULFIDINE) 500 mg mouth as needed tablet for other (Specify) nystatin (NYAMYC) Apply topically 2 1 Bottle 0 Active 423461 UNIT/GM times a day 019 powderIndications: Status post total replacement of left hip polyethylene glycol Take 3 1 Bottle 0 Active (MIRALAX) teaspoonsful (17 019 powderIndications: g) by mouth 1 Status post total time a day as replacement of left needed for hip constipation ketoconazole (NIZORAL) Apply 1 5 Active 2 % cream application 019 topically 1 time per day ALPRAZolam (XANAX) Take 0.25 mg by 0 Active 0.25 mg tablet mouth every night at bedtime azaTHIOprine (IMURAN) Take 50 mg by 0 Active 50 MG tablet mouth 2 times a day baclofen (LIORESAL) 10 Take 10 mg by 0 Active mg tablet mouth 3 times a day betamethasone Apply 1 0 Active dipropionate application (DIPROSONE) 0.05 % topically 1 time LOTN a day as needed interferon beta-1a Inject 44 mcg 0 Active (REBIF) 44 mcg/0.5 mL subcutaneously 3 (44 mcg/0.5 mL) times a week injection solution levothyroxine 150 mcg Take 150 mcg by 0 Active tablet mouth 1 time per day liothyronine (CYTOMEL) Take 5 mcg by 0 Active 5 MCG TABS mouth 1 time per day oxybutynin Take 5 mg by 0 Active (DITROPAN-XL) 5 mg SR mouth every night tablet (24 hr) at bedtime pregabalin (LYRICA) 75 1 capsule (75 mg) 0 Active mg capsule in the morning and 2 capsules (150 mg) at night garlic 1000 MG CAPS Take 1,000 mg by 0 Active mouth 1 time per day vitamin D3, Take 5,000 Units 0 Active cholecalciferol, 5000 by mouth 1 time units tablet per day BLACK COHOSH PO Take 1 capsule by 0 Active mouth every night at bedtime melatonin 1 mg tablet Take 1 mg by 0 Active mouth every night at bedtime Probiotic Product Take 3 tablets by 0 Active (PROBIOTIC PO) mouth 1 time per day cyanocobalamin Take 1,000 mcg by 0 Active (VITAMIN B-12) 1000 mouth 1 time per mcg tablet day TURMERIC PO Take 1 capsule by 0 Active mouth 1 time per day Biotin w/ Vitamins C & Take 1 tablet by 0 Active E (HAIR/SKIN/NAILS PO) mouth 1 time per day Clif, Zingiber Take 1 capsule by 0 Active officinalis, (CLIF mouth 1 time per ROOT) 550 MG CAPS day [place]-3 Fatty Acids Take 1 capsule by 0 Active (FISH OIL TRIPLE mouth 1 time per STRENGTH) 1400 MG CAPS day CALCIUM CITRATE PO Take 2 tablets by 0 Active mouth 1 time per day clobetasol propionate Apply to affected 1 Tube 0 Active (TEMOVATE) 0.05 % area 2 times a 019 creamIndications: day as needed for Psoriasis rash celecoxib (CELEBREX) Take 1 capsule 6 capsule 0 03/12/ Active 200 mg (200 mg) by mouth 2018 capsuleIndications: 1 time per day Psoriasis for 6 days fluticasone-vilanterol Inhale 1 puff 1 Inhaler 0 Active (BREO ELLIPTA) 100-25 orally every 019 mcg/puff night at bedtime inhalerIndications: Rinse mouth after Mild persistent asthma use. without complication traMADol (ULTRAM) 50 Take 1 tablet (50 20 tablet 0 03/11/ Active mg tabletIndications: mg) by mouth 2018 Shoulder joint pain Every 6 hours for 5 days acetaminophen Take 2 tablets 32 tablet 0 03/10/ Active (TYLENOL) 325 mg (650 mg) by mouth 2018 tabletIndications: Every 6 hours for Shoulder joint pain 4 days bisacodyl (DULCOLAX) 5 Take 1 tablet (5 60 tablet 0 Active mg tabletIndications: mg) by mouth 2 019 Shoulder joint pain times a day as needed for constipation oxyCODONE (OXY-IR) 5 Take 5 mg every 6 30 tablet 0 Active mg tablet (immediate hrs as needed for 019 release)Indications: moderate pain,10 Shoulder joint pain mg every 6 hrs for severe pain. senna-docusate sodium Take 1 tablet by 20 tablet 0 Active (SENOKOT-S;PERICOLACE) mouth 2 times a 019 8.6-50 MG day tabletIndications: Shoulder joint pain aspirin 325 MG enteric Take 1 tablet 25 tablet 0 04/01/ Active coated (325 mg) by mouth 2018 tabletIndications: 1 time per day Shoulder joint pain for 25 days aspirin 81 mg chewable Take 1 tablet (81 60 tablet 0 Active tabletIndications: mg) by mouth 1 019 Shoulder joint pain time per day clobetasol propionate Apply to affected 3 Tube 1 Discontinued (TEMOVATE) 0.05 % area 2 times a 2018 (Reorder) creamIndications: day Psoriasis celecoxib (CELEBREX) Take 2 capsules 180 capsule 1 Discontinued 200 mg (400 mg) by mouth 2018 (Reorder) capsuleIndications: 1 time per day Psoriasis fluticasone-vilanterol Inhale 1 puff 3 Inhaler 4 Discontinued (BREO ELLIPTA) 100-25 orally 1 time per 2018 (Reorder) mcg/puff day Rinse mouth inhalerIndications: after use. Mild persistent asthma without complication interferon beta-1a INJECT CONTENTS 12 syringe 5 Discontinued (REBIF) 44 mcg/0.5 mL OF ONE SYRINGE 2018 (data entry email processor (44 mcg/0.5 mL) SUBCUTANEOUSLY 3 error) injection TIMES A WEEK . solutionIndications: [facility] [place]) baclofen (LIORESAL) 10 TAKE 1 TABLET BY 270 tablet 1 03/01/ Discontinued mg tabletIndications: MOUTH 3 TIMES A 2018 (data entry email processor Spasm of muscle DAY. GENERIC error) EQUIVALENT FOR LIORESAL oxybutynin TAKE 1 TABLET BY 90 tablet 1 Discontinued (DITROPAN-XL) 5 mg SR MOUTH ONCE A DAY 2018 (data entry email processor tablet (24 error) hr)Indications: Bladder dysfunction pregabalin (LYRICA) 75 TAKE ONE CAPSULE 90 capsule 5 Discontinued mg capsuleIndications: BY MOUTH IN AM 2018 (data entry email processor Nerve pain, AND TWO CAPSULES error) Fibromyalgia syndrome AT NIGHT levothyroxine 150 mcg TAKE 1 TABLET BY 90 tablet 3 2 Discontinued tabletIndications: MOUTH ONCE DAILY 2018 (data entry email processor Primary hypothyroidism ON EMPTY STOMACH, error) SEPARATE FROM VITAMINS, SUPPLEMENTS, CALCIUM. azaTHIOprine (IMURAN) TAKE 1 TABLET BY 180 tablet 0 Discontinued 50 MG MOUTH 2 TIMES A 2018 (data entry email processor tabletIndications: DAY. GENERIC error) Polymyositis ([facility]) EQUIVALENT FOR IMURAN ALPRAZolam (XANAX) TAKE 1 TABLET BY 30 tablet 1 03/01/ Discontinued 0.25 mg MOUTH AT BEDTIME 2018 (data entry email processor tabletIndications: NEEDED error) Anxiety ALPRAZolam (XANAX) Take 1 tablet 30 tablet 0 Discontinued 0.25 mg (0.25 mg) by 2018 (data entry email processor tabletIndications: mouth at bedtime error) Anxiety as needed for anxiety fluocinolone acetonide 2 Discontinued 0.01 % OIL 2018 (data entry email processor error) potassium chloride TK 2 TS PO BID 1 Discontinued (KLOR-CON M10) 10 MEQ 2018 (data entry email processor CR tablet error) triamcinolone 2 Discontinued acetonide 2018 (data entry email processor (KENALOG,ARISTOCORT) error) 0.1 % ointment liothyronine (CYTOMEL) TAKE 1 TABLET (5 90 tablet 3 Discontinued 5 MCG TABSIndications: MCG) BY MOUTH 1 2018 (data entry email processor Primary hypothyroidism TIME PER DAY error) traMADol (ULTRAM) 50 Take 50 mg by 0 03/06/ Discontinued mg tablet mouth every 6 2018 (Reorder) hours as needed for other (Specify) (pain) aspirin 81 mg chewable Take 81 mg by 0 03/06/ Discontinued tablet mouth 1 time per 2018 (Reorder) day documented as of this encounter (statuses as of 03/06/2019) Active Problems Problem Noted Date Acute blood [...] as of this encounter (statuses as of 03/06/2019) Resolved Problems Problem Noted Date Resolved Date Encounter for long-term (current) use of other high-risk 07/06/20152015 medications COPD, mild 12/07/2012 12/17/2015 Bilateral leg weakness 09/25/2012 02/08/2017 Headache(784.0) 03/14/2012 02/08/2017 Encounter for long-term (current) use of other medications 04/05/20112016 documented as of this encounter (statuses as of 03/06/2019) Immunizations Name Administration Dates Next Due FLU VACCINE TRIVALENT MULTIDOSE(Fluvirin,Afluria) 03/09/2013 FLU VACCINE MULTIDOSE 03/18/2015 0.5mL(6MO+Fluzone/Flulaval,Afluria) FLU VACCINE SINGLE DOSE 03/17/2018 0.5mL(6MO+Fluzone/Flulaval/Fluarix,3YR+Afluria) Methylpred Acetate AQ 40 mg/ml 12/14/2013 Pneumococcal [...] at Date Recorded Female 05/08/2018 2:23 PM [employer] Job Start Date Occupation Industry Not on file Not on file Not on file Travel History Travel Start Travel End No recent travel history available. documented as of this encounter Last Filed Vital Signs Vital Sign Reading Time Taken Comments Blood Pressure 103/54 03/06/2019 12:23 PM [employer] Pulse 58 03/06/2019 12:23 PM [employer] Temperature 36.9 C (98.4 F) 03/06/2019 12:23 PM [employer] Respiratory Rate 16 03/06/2019 12:23 PM [employer] Oxygen Saturation 95% 03/06/2019 12:23 PM [employer] Inhaled Oxygen Concentration - - Weight 146.4 kg (322 lb 12.1 oz) 03/01/2019 5:50 AM [employer] Height 167.6 cm (5' 6") 03/01/2019 5:50 AM [employer] Body Mass Index 52.09 03/01/2019 5:50 AM [employer] documented in this encounter Functional Status Functional Status Response Date of Assessment Is the person deaf or does he/she have serious difficulty No 03/01/2019 hearing? Is this person blind or does he/she have difficulty No 03/01/2019 seeing even when wearing glasses? Do you have difficulty with walking, balance, climbing Yes 03/01/2019 stairs, or had a fall in the last 3 months? Does the patient have difficulty dressing or bathing? No 02/26/2019 Because of a physical, mental, or emotional condition; No 02/26/2019 does this person have difficulty doing errands alone such as visiting a doctor's office or shopping? Cognitive Status Response Date of Assessment Because of a physical, mental, or emotional condition; No 02/26/2019 does this person have serious difficulty concentrating, remembering, or making decisions? documented as of this encounter Discharge Summaries Myles So PA - 03/05/2019 10:11 AM CST Hospital Discharge Summary Attending Physician: Yonathan Garcia MD Attending Physician Specialty: Orthopedic Surgery Admit Date: 03/01/2019 Discharge Date: 03/06/19 Primary Care Physician: Isabell Womack MD Discharge Diagnoses Rotator cuff tear arthropathy left shoulder Hospital Course No notes on file Bárbara Matthew is a 63yr female admitted for elective Left reverse total shoulder arthoplasty.She was seen preoperatively by their primary care provider and was okayed for surgery. She was givena General anesthetic. A Left reverse total shoulder arthroplasty was done without problems. Patientwas taken to the recovery room in satisfactory condition. Post op films showed the prosthesis to bein good position and alignment. She was started with physical and occupational therapy and progressed well. She made good progress and were discharged to [facility] [place]. The last hemoglobin was Lab Results Component Value Date HEMOGLOBIN 9.3 (L) 03/03/2019 . She will have the jane out 2 weeks post op and see Dr. Bridges 4 weeks with devaughn's. Outpatient physical therapy will be started after discharge. LabTests Pending at Discharge Follow-Up Scheduled Contact information for follow-up Myles So PA Specialty: LALI - Orthopedic Surgery [facility] [address], [facility] [place] [address] Next Steps: Follow up Instructions: Incision check appointment on Mar 14, at 1:00 PM. Yonathan Garcia MD Specialty: Orthopedic Surgery [facility] [address] [facility] [place] [address] Next Steps: Follow up Instructions: Follow up appointment on Mar 28, at 3:40 PM. Preliminary Discharge Medications This list of medications is preliminary and tentative. Please see the After Visit Summary for the final and accurate medication list. Discharge Medication List ASK your doctor about these medications ALPRAZolam 0.25 mg tablet Commonly known as: XANAX Dose: 0.25 mg Take 0.25 mg by mouth every night at bedtime Ask about: Which instructions should I use? azaTHIOprine 50 MG tablet Commonly known as: IMURAN Dose: 50 mg Take 50 mg by mouth 2 times a day Ask about: Which instructions should I use? baclofen 10 mg tablet Commonly known as: LIORESAL Dose: 10 mg Take 10 mg by mouth 3 times a day Ask about: Which instructions should I use? interferon beta-1a 44 mcg/0.5 mL (44 mcg/0.5 mL) injection solution Commonly known as: REBIF Dose: 44 mcg Inject 44 mcg subcutaneously 3 times a week Ask about: Which instructions should I use? levothyroxine 150 mcg tablet Dose: 150 mcg Take 150 mcg by mouth 1 time per day Ask about: Which instructions should I use? liothyronine 5 MCG Tabs Commonly known as: CYTOMEL Dose: 5 mcg Take 5 mcg by mouth 1 time per day Ask about: Which instructions should I use? oxybutynin 5 mg SR tablet (24 hr) Commonly known as: DITROPAN-XL Dose: 5 mg Take 5 mg by mouth every night at bedtime Ask about: Which instructions should I use? pregabalin 75 mg capsule Commonly known as: LYRICA 1 capsule (75 mg) in the morning and 2 capsules (150 mg) at night Ask about: Which instructions should I use? Procedures Performed and Findings Procedure(s): LEFT SHOULDER REVERSE TOTAL ARTHROPLASY - Wound Class: Clean Consultations Obtained SPIRITUAL CARE REFERRAL INTERNAL MEDICINE CONSULT PHARMACY CONSULT CASE MANAGEMENT CONSULT Discharge Disposition ADULT Discharge Planning: Home (1, 2)(may go to swing bed; undecided at this point) Instructions for after discharge Contact your doctor if you develop a temperature greater than 101 degrees Contact your doctor if you experience increased pain, numbness, or tingling Contact your doctor if you have any questions in the first week Contact your doctor if you notice any drainage from your incision after 48 hours Contact your doctor if you notice any redness or swelling around your incision Ice to affected area Ice to affected area 5 times per day and as needed for swelling and pain. Alternate 20 minutes on and 20 minutes off. Use Polar Care - assess skin every 2 hrs. Do not apply directly on skin. If you have questions or concerns, please call your orthopedic surgeon at the clinic Leave occlusive dressing intact for: 7 days, then change every 7 days with occlusive dressing. If incision is draining, ok to change dressing sooner. May not return to work until after follow-up appointment May shower - Cover incision with water proof dressing so it doesn't get wet No driving No Driving until follow up with your health care provider. No lifting with affected extremity No tub bath until directed No use of alcohol or non-prescription drugs Please call 911 and seek immediate emergency care if you experience any chest pain or shortness of breath or if you are coughing up blood Resume home diet DESIREE stocking on every day (a) May take stocking off at night (b) Wear stockings until follow-up appointment Walk frequently and gradually increase the distance you are walking Walk with assistive device documented in this encounter Discharge Instructions Eli Henning RN - 03/06/2019Post operative pain control Pain after an operation (post-op pain) is common and expected. These guidelines can help you stay ascomfortable as possible. Take medicines on time. Do not take more than prescribed. Take only the medicines that your healthcare provider tells you to take. Take pain medicines with some food to avoid an upset stomach. Dont drink alcohol while using pain medicines. Constipation Constipation is a common side effect of pain medicines. Constipation means you have bowel movementsfewer than three times per week, or strain to pass hard, dry stool. One of the best ways to help treat constipation is to increase your fiber intake. You can do this either through diet or by using fiber supplements. Fiber (in whole grains, fruits, and vegetables) addsbulk and absorbs water to soften the stool. This helps the stool pass through the colon more easily.When you increase your fiber intake, do it slowly to avoid side effects such as bloating. Also increase the amount of water that you drink. Eating more of the following foods can add fiber to your diet. Exercise helps improve the working of your colon which helps ease constipation. Your health care provider may suggest an dknh-ivy-pyaltgn stool softener, such as Senna or Colace tohelp ease your constipation. He or she may suggest the use of bulk-forming agents or laxatives. The use of laxatives, if used as directed, is common and safe. Follow directions carefully when using them. Preventing Blood Clots (Deep Vein Thrombosis) In [...] ankle exercises you did in the hospital. documented in this encounter Medications at Time of Discharge Medication Sig Dispensed Refills Start Date End Date clobetasol propionate Apply to affected 1 Tube 0 03/06/2019 (TEMOVATE) 0.05 % area 2 times a day creamIndications: as needed for rash Psoriasis celecoxib (CELEBREX) 200 Take 1 capsule (200 6 capsule 0 03/06/20192018 mg capsuleIndications: mg) by mouth 1 time Psoriasis per day for 6 days fluticasone-vilanterol Inhale 1 puff orally 1 Inhaler 0 03/06/2019 (BREO ELLIPTA) 100-25 every night at mcg/puff bedtime Rinse mouth inhalerIndications: Mild after use. persistent asthma without complication traMADol (ULTRAM) 50 mg Take 1 tablet (50 20 tablet 0 03/06/20192018 tabletIndications: mg) by mouth Every 6 Shoulder joint pain hours for 5 days acetaminophen (TYLENOL) Take 2 tablets (650 32 tablet 0 03/06/20192018 325 mg tabletIndications: mg) by mouth Every 6 Shoulder joint pain hours for 4 days bisacodyl (DULCOLAX) 5 mg Take 1 tablet (5 mg) 60 tablet 0 03/06/2019 tabletIndications: by mouth 2 times a Shoulder joint pain day as needed for constipation oxyCODONE (OXY-IR) 5 mg Take 5 mg every 6 30 tablet 0 03/06/2019 tablet (immediate hrs as needed for release)Indications: moderate pain,10 mg Shoulder joint pain every 6 hrs for severe pain. senna-docusate sodium Take 1 tablet by 20 tablet 0 03/06/2019 (SENOKOT-S;PERICOLACE) mouth 2 times a day 8.6-50 MG tabletIndications: Shoulder joint pain aspirin 325 MG enteric Take 1 tablet (325 25 tablet 0 03/07/20192018 coated tabletIndications: mg) by mouth 1 time Shoulder joint pain per day for 25 days aspirin 81 mg chewable Take 1 tablet (81 60 tablet 0 04/02/2019 tabletIndications: mg) by mouth 1 time Shoulder joint pain per day ALPRAZolam (XANAX) 0.25 mg Take 0.25 mg by 0 tablet mouth every night at bedtime azaTHIOprine (IMURAN) 50 Take 50 mg by mouth 0 MG tablet 2 times a day baclofen (LIORESAL) 10 mg Take 10 mg by mouth 0 tablet 3 times a day betamethasone dipropionate Apply 1 application 0 (DIPROSONE) 0.05 % LOTN topically 1 time a day as needed interferon beta-1a (REBIF) Inject 44 mcg 0 44 mcg/0.5 mL (44 mcg/0.5 subcutaneously 3 mL) injection solution times a week levothyroxine 150 mcg Take 150 mcg by 0 tablet mouth 1 time per day liothyronine (CYTOMEL) 5 Take 5 mcg by mouth 0 MCG TABS 1 time per day oxybutynin (DITROPAN-XL) 5 Take 5 mg by mouth 0 mg SR tablet (24 hr) every night at bedtime pregabalin (LYRICA) 75 mg 1 capsule (75 mg) in 0 capsule the morning and 2 capsules (150 mg) at night garlic 1000 MG CAPS Take 1,000 mg by 0 mouth 1 time per day vitamin D3, Take 5,000 Units by 0 cholecalciferol, 5000 mouth 1 time per day units tablet BLACK COHOSH PO Take 1 capsule by 0 mouth every night at bedtime melatonin 1 mg tablet Take 1 mg by mouth 0 every night at bedtime Probiotic Product Take 3 tablets by 0 (PROBIOTIC PO) mouth 1 time per day cyanocobalamin (VITAMIN Take 1,000 mcg by 0 B-12) 1000 mcg tablet mouth 1 time per day TURMERIC PO Take 1 capsule by 0 mouth 1 time per day Biotin w/ Vitamins C & E Take 1 tablet by 0 (HAIR/SKIN/NAILS PO) mouth 1 time per day Clif, Zingiber Take 1 capsule by 0 officinalis, (CLIF ROOT) mouth 1 time per day 550 MG CAPS [place]-3 Fatty Acids (FISH Take 1 capsule by 0 OIL TRIPLE STRENGTH) 1400 mouth 1 time per day MG CAPS CALCIUM CITRATE PO Take 2 tablets by 0 mouth 1 time per day ketoconazole (NIZORAL) 2 % Apply 1 application 5 01/02/2019 cream topically 1 time per day nystatin (NYAMYC) 052929 Apply topically 2 1 Bottle 0 08/11/2018 UNIT/GM powderIndications: times a day Status post total replacement of left hip polyethylene glycol Take 3 teaspoonsful 1 Bottle 0 08/11/2018 (MIRALAX) (17 g) by mouth 1 powderIndications: Status time a day as needed post total replacement of for constipation left hip sulfaSALAzine (AZULFIDINE) Take 500 mg by mouth 0 500 mg tablet as needed for other (Specify) folic acid 1 mg Take 1 tablet (1 mg) 90 tablet 3 05/25/2018 tabletIndications: by mouth 1 time per Myositis, unspecified day myositis type, unspecified site predniSONE 5 mg Take 1 tablet (5 mg) 90 tablet 1 05/25/2018 tabletIndications: by mouth 1 time per Antisynthetase syndrome day (HCC) albuterol HFA Inhale 2 puffs 1 Inhaler 11 05/25/2018 (PROVENTIL,PROAIR,VENTOLIN orally Every 4 hours ) 108 (90 Base) MCG/ACT as needed for inhalerIndications: Mild shortness of breath, persistent asthma without wheezing or cough complication Shake well before using. phentermine (ADIPEX-P) Take 1 tablet (37.5 36 tablet 0 05/11/2018 37.5 MG tabletIndications: mg) by mouth 1 time Morbid obesity with BMI of a day in the morning 50.0-59.9, adult (HCC) hydroCHLOROthiazide 12.5 Take 1 tablet (12.5 30 tablet 0 03/17/2018 mg tabletIndications: mg) by mouth 1 time Hypertension, unspecified per day type potassium chloride (K-TAB) Take 2 tablets (20 60 tablet 0 03/17/2018 10 mEq CR mEq) by mouth 2 tabletIndications: times a day Hypokalemia CINNAMON PO Take 1 capsule by 0 mouth 1 time per day triamcinolone (KENALOG IN Apply twice a day to 3 Tube 0 04/05/2016 ORABASE) 0.1 % canker sores pasteIndications: Cold sore metoprolol tartrate Take 25 mg by mouth 0 06/01/2013 (LOPRESSOR) 25 mg tablet 2 times a day. sertraline (ZOLOFT) 100 mg Take 100 mg by mouth 0 tablet 1 time per day Multiple Vitamin Take 1 tablet by 0 (MULTIVITAMIN PO) mouth 1 time per day. documented as of this encounter Progress Notes Myles So PA - 03/06/2019 7:31 AM CST Ortho Progress Note Bárbara Matthew is a 63yr female here for 5 Days Post-Op, Procedure(s): LEFT SHOULDER REVERSE TOTAL ARTHROPLASY. Patient of BP 121/63 | Pulse 77 | Temp 98 F (36.7 C) | Resp 16 | Ht 1.676 m (5' 6" ) | Wt (!) 146.4 kg (322 lb 12.1 oz) | SpO2 99% | BMI 52.09 kg/m Maximum Temperatures (last 24 hours) Temperature Maximum Max Temp 98 F (36.7 C) { Lab Results Component Value Date HEMOGLOBIN 9.3 (L) 03/03/2019 Patient doing ok, complains of mild pain. The patient denies nausea. The wound has No drainage. Compartments soft and non-tender. Distal NV intact. Doing well with Physical Therapy today. Continue care plan. Looking to go to TCU, patient is a fall risk. rMyles sparrow PA - 02/2019 10:10 AM CST Ortho Progress Note Bárbara Matthew is a 63yr female here for 4 Days Post-Op, Procedure(s): LEFT SHOULDER REVERSE TOTAL ARTHROPLASY. Patient of BP 119/61 | Pulse 53 | Temp 98 F (36.7 C) | Resp 16 | Ht 1.676 m (5' 6" ) | Wt (!) 146.4 kg (322 lb 12.1 oz) | SpO2 96% | BMI 52.09 kg/m Maximum Temperatures (last 24 hours) Temperature Maximum Max Temp 98.6 F (37 C) { Lab Results Component Value Date HEMOGLOBIN 9.3 (L) 03/03/2019 Patient doing ok, complains of mild pain. The patient denies nausea. The wound has No drainage. Compartments soft and non-tender. Distal NV intact. Doing well with Occupational and Physical Therapy today. Continue care plan. 10: 10 AM Emerson Vargas PA - 03/04/2019 9:35 AM CST ORTHO progress note. Bárbara Matthew is a 63yr old female admitted on 03/01/2019 5:20 AM 3 Days Post-Op Status Post: Procedure(s): LEFT SHOULDER REVERSE TOTAL ARTHROPLASY Patient doing ok, complains of moderatepain with current meds. The patient denies nausea. Lab Results Component Value Date HEMOGLOBIN 9.3 (L) 03/03/2019 Current Vital Signs Temp: 99.1 F (37.3 C) BP: 96/52 Pulse: 63 O2 Device: Room Air O2 Flow Rate (L/min): 2 l/min Resp: 16 Pain Ratin (out of 10) Weight: (!) 146.4 kg (322 lb 12.1 oz) SpO2: 94 % Dist NVI. Dressings Clean & Dry. Compartments soft. Waste Chopper strength 5/5. CR is brisk. X-rays reviewed, no complications seen. Plan: Continue cares, PT. Swing bed tomorrow. Emerson Key, PAElectronically signed by Emerson Key PA at 2018 9:36 AM Michael Gaffney MD - 03/04/2019 9:25 AM CST Hospital Progress Note Bárbara Matthew is a 63yr old female admitted on 03/01/2019. Assessment / Plan Active Problems: * No active hospital problems. * Resolved Problems: * No resolved hospital problems. * 1. Left shoulder post traumatic arthrosis, tuberosity nonunions S/P shoulder reverse total arthroplasty on 03/01/[address] Garcia. Postoperatively doing well and pain control. Continue cares by dm including pain management , DVT prophylaxis, and bowel regimen. PT and OT. Chronic conditions: TORSTEN. Asthma. Continue home inhalers Hyperlipidemia. Hypertension. Continue hydrochlorothiazide and Lopressor Hypothyroidism. Continue levothyroxine and Cytomel Fibromyalgia. Continue Lyrica MS. continue prednisone, imuran, baclofen GERD. Mood disorder. Continue Xanax and Zoloft CODE STATUS: Full DVT prophylaxis: Lovenox subcu Disposition: Awaiting placement to swing bed, likely Tuesday HPI / History / ROS HPI No overnight events. No complaints and pain controlled. Clinically doing well Review of Systems Respiratory: Negative for shortness of breath. Cardiovascular: Negative for chest pain. Gastrointestinal: Negative for abdominal pain. Physical / Results Current Vital Signs Temp: 98.6 F (37 C) BP: 105/52 Weight: (!) 146.4 kg (322 lb 12.1 oz) SpO2: 92 % Resp: 18 Pulse: 70 Current BMI (>50=increased risk): (!) 52.12 O2 Device: Room Air O2 Flow Rate (L/min): 2 l/min Pain Ratin Physical Exam PHYSICAL EXAMINATION: VITAL SIGNS: Reviewed. GENERAL: Not in acute distress. SKIN: No new rashes. HEENT: Atraumatic, normocephalic. HEART: S1, S2. LUNGS: CTABL ABDOMEN: Soft. Bowel sounds present. NEUROLOGIC: Moves extremities. ichael Acosta MD - 03/03/2019 3:47 PM CST Hospital Progress Note Bárbara Matthew is a 63yr old female admitted on 03/01/2019. Assessment / Plan Active Problems: * No active hospital problems. * Resolved Problems: * No resolved hospital problems. * 1. Left shoulder post traumatic arthrosis, tuberosity nonunions S/P shoulder reverse total arthroplasty on 03/01/[address] Garcia. Postoperatively doing well and pain control. Continue cares by [facility] including pain management , DVT prophylaxis, and bowel regimen. PT and OT. Chronic conditions: TORSTEN. Asthma. Continue home inhalers Hyperlipidemia. Hypertension. Continue hydrochlorothiazide and Lopressor Hypothyroidism. Continue levothyroxine and Cytomel Fibromyalgia. Continue Lyrica MS. continue prednisone, imuran, baclofen GERD. Mood disorder. Continue Xanax and Zoloft CODE STATUS: Full DVT prophylaxis: Lovenox subcu Disposition: Awaiting placement to swing bed, likely Tuesday HPI / History / ROS HPI No overnight events. No complaints and pain controlled. Clinically doing well Review of Systems Respiratory: Negative for shortness of breath. Cardiovascular: Negative for chest pain. Gastrointestinal: Negative for abdominal pain. Physical / Results Current Vital Signs Temp: 98.6 F (37 C) BP: 105/52 Weight: (!) 146.4 kg (322 lb 12.1 oz) SpO2: 92 % Resp: 18 Pulse: 70 Current BMI (>50=increased risk): (!) 52.12 O2 Device: Room Air O2 Flow Rate (L/min): 2 l/min Pain Ratin Physical Exam PHYSICAL EXAMINATION: VITAL SIGNS: Reviewed. GENERAL: Not in acute distress. SKIN: No new rashes. HEENT: Atraumatic, normocephalic. HEART: S1, S2. LUNGS: CTABL ABDOMEN: Soft. Bowel sounds present. NEUROLOGIC: Moves extremities. Wang Shultz PA-C - 03/03/2019 8:39 AM CST Ortho Progress Note Bárbara Matthew is a 63yr old female 2 Days Post-Op, Status Post Procedure(s): LEFT SHOULDER REVERSE TOTAL ARTHROPLASY. BP 99/57 | Pulse 57 | Temp 98.2 F (36.8 C) | Resp 16 | Ht 1.676 m (5' 6 ") | Wt (!) 146.4 kg(322 lb 12.1 oz) | SpO2 94% | BMI 52.09 kg/m Lab Results Component Value Date HEMOGLOBIN 9.3 (L) 03/03/2019 Patient doing ok, complains of mild pain. The patient denies nausea. The dressing/incision is clean With scant drainage. Compartments soft and non-tender. Distal NV intact left upper extremity. Plan: Continue cares. Ambulate. Home vs swingbed? Michael Gaffney MD - 03/02/2019 2:58 PM CST Hospital Progress Note Bárbara Matthew is a 63yr old female admitted on 03/01/2019. Assessment / Plan Active Problems: * No active hospital problems. * Resolved Problems: * No resolved hospital problems. * 1. Left shoulder post traumatic arthrosis, tuberosity nonunions S/P shoulder reverse total arthroplasty on 03/01/[address] Garcia. Postoperatively doing well and pain control. Continue cares by [facility] including pain management , DVT prophylaxis, and bowel regimen. PT and OT. Chronic conditions: TORSTEN. Asthma. Continue home inhalers Hyperlipidemia. Hypertension. Continue hydrochlorothiazide and Lopressor Hypothyroidism. Continue levothyroxine and Cytomel Fibromyalgia. Continue Lyrica MS. continue prednisone, imuran, baclofen GERD. Mood disorder. Continue Xanax and Zoloft CODE STATUS: Full DVT prophylaxis: Disposition: Awaiting medical clearance by Ortho and meeting therapy goals before discharge. May need swing bed. CM is profiling. Anticipate discharge over the weekend or on Tuesday HPI / History / ROS HPI No overnight events. Therapy is recommending SNF. No complaints and pain controlled. Clinically doing well Review of Systems Respiratory: Negative for shortness of breath. Cardiovascular: Negative for chest pain. Gastrointestinal: Negative for abdominal pain. Physical / Results Current Vital Signs Temp: 98.6 F (37 C) BP: 105/52 Weight: (!) 146.4 kg (322 lb 12.1 oz) SpO2: 92 % Resp: 18 Pulse: 70 Current BMI (>50=increased risk): (!) 52.12 O2 Device: Room Air O2 Flow Rate (L/min): 2 l/min Pain Ratin Physical Exam PHYSICAL EXAMINATION: VITAL SIGNS: Reviewed. GENERAL: Not in acute distress. SKIN: No new rashes. HEENT: Atraumatic, normocephalic. HEART: S1, S2. LUNGS: CTABL ABDOMEN: Soft. Bowel sounds present. NEUROLOGIC: Moves extremities. Brenda Cordoba PA - 03/02/2019 2:23 PM CST Orthopedic Progress Note Bárbara Matthew is a 63yr old female admitted on 03/01/2019 5:20 AM. S: stable overnight, pain has been controlled, { Lab Results Component Value Date HEMOGLOBIN 9.4 (L) 03/02/2019 O: Vital Signs: Temp: 98.6 F (37 C) | BP: 105/52 | Pulse: 70 | Resp: 18 | Pain Ratin (out of 10) | Weight: (!) 146.4 kg (322 lb 12.1 oz) | O2 Device: Room Air O2 Flow Rate (L/min): 2 l/min | SpO2: 92 % Maximum Temperatures (last 24 hours) Temperature Maximum Max Temp 98.7 F (37.1 C) Exam: alert, oriented Bandage is clean, dry, Distal NVI, no significant swelling, A: 1 Day Post-Op Status Post: Procedure(s): LEFT SHOULDER REVERSE TOTAL ARTHROPLASY P: continue PT, would like SNF at d/c Brenda Lake PA-C Robert Rivera, PHARM D - 03/01/2019 8:28 AM CST 03/01/2019 08:28 - Patient was seen by pharmacy. HOME MEDICATIONS have been reconciled and updated tomatch the patient's home usage. Prior to Admission Medications Prescriptions Last Dose Informant Patient Reported? Taking? ALPRAZolam (XANAX) 0.25 mg tablet 02/28/2019 at HS Self Yes Yes Sig: Take 0.25 mg by mouth every night at bedtime BLACK COHOSH PO 02/01/2019 at Unknown time Self Yes Yes Sig: Take 1 capsule by mouth every night at bedtime Biotin w/ Vitamins C & E (HAIR/SKIN/NAILS PO) 02/01/2019 at Unknown time Self Yes Yes Sig: Take 1 tablet by mouth 1 time per day CALCIUM CITRATE PO 02/01/2019 at Unknown time Self Yes Yes Sig: Take 2 tablets by mouth 1 time per day CINNAMON PO 02/15/2019 at Unknown time Self Yes Yes Sig: Take 1 capsule by mouth 1 time per day Clif, Zingiber officinalis, (CLIF ROOT) 550 MG CAPS 02/01/2019 at Unknown time Self Yes Yes Sig: Take 1 capsule by mouth 1 time per day Multiple Vitamin (MULTIVITAMIN PO) 02/15/2019 at Unknown time Self Yes Yes Sig: Take 1 tablet by mouth 1 time per day. [place]-3 Fatty Acids (FISH OIL TRIPLE STRENGTH) 1400 MG CAPS 02/22/2019 at Unknown time Self Yes Yes Sig: Take 1 capsule by mouth 1 time per day Probiotic Product (PROBIOTIC PO) 02/01/2019 at Unknown time Self Yes Yes Sig: Take 3 tablets by mouth 1 time per day TURMERIC PO 02/01/2019 at Unknown time Self Yes Yes Sig: Take 1 capsule by mouth 1 time per day albuterol HFA (PROVENTIL,PROAIR,VENTOLIN) 108 (90 Base) MCG/ACT inhaler Greater than 1 Month at Unknown time Self No Yes Sig: Inhale 2 puffs orally Every 4 hours as needed for shortness of breath, wheezing or cough Shake well before using. aspirin 81 mg chewable tablet 02/22/2019 at Unknown time Self Yes Yes Sig: Take 81 mg by mouth 1 time per day azaTHIOprine (IMURAN) 50 MG tablet 02/21/2019 at Unknown time Self Yes Yes Sig: Take 50 mg by mouth 2 times a day baclofen (LIORESAL) 10 mg tablet 02/28/2019 at HS Self Yes Yes Sig: Take 10 mg by mouth 3 times a day betamethasone dipropionate (DIPROSONE) 0.05 % LOTN Past Week at Unknown time Self Yes Yes Sig: Apply 1 application topically 1 time a day as needed celecoxib (CELEBREX) 200 mg capsule 02/26/2019 at Unknown time Self No Yes Sig: Take 2 capsules (400 mg) by mouth 1 time per day clobetasol propionate (TEMOVATE) 0.05 % cream 02/28/2019 at HS Self No Yes Sig: Apply to affected area 2 times a day Patient taking differently: Apply to affected area 2 times a day as needed cyanocobalamin (VITAMIN B-12) 1000 mcg tablet 02/01/2019 at Unknown time Self Yes Yes Sig: Take 1,000 mcg by mouth 1 time per day fluticasone-vilanterol (BREO ELLIPTA) 100-25 mcg/puff inhaler 02/28/2019 at HS Self No Yes Sig: Inhale 1 puff orally 1 time per day Rinse mouth after use. Patient taking differently: Inhale 1 puff orally every night at bedtime Rinse mouth after use. folic acid 1 mg tablet 02/27/2019 at AM Self No Yes Sig: Take 1 tablet (1 mg) by mouth 1 time per day garlic 1000 MG CAPS 02/01/2019 at Unknown time Self Yes Yes Sig: Take 1,000 mg by mouth 1 time per day hydroCHLOROthiazide 12.5 mg tablet 02/27/2019 at AM Self No Yes Sig: Take 1 tablet (12.5 mg) by mouth 1 time per day interferon beta-1a (REBIF) 44 mcg/0.5 mL (44 mcg/0.5 mL) injection solution 02/28 at Unknown time Self Yes Yes Sig: Inject 44 mcg subcutaneously 3 times a week ketoconazole (NIZORAL) 2 % cream Past Week at Unknown time Self Yes Yes Sig: Apply 1 application topically 1 time per day levothyroxine 150 mcg tablet 03/01/2019 at 0300 Self Yes Yes Sig: Take 150 mcg by mouth 1 time per day liothyronine (CYTOMEL) 5 MCG TABS 03/01/2019 at 0300 Self Yes Yes Sig: Take 5 mcg by mouth 1 time per day melatonin 1 mg tablet Past Week at Unknown time Self Yes Yes Sig: Take 1 mg by mouth every night at bedtime metoprolol tartrate (LOPRESSOR) 25 mg tablet 03/01/2019 at 0300 Self Yes Yes Sig: Take 25 mg by mouth 2 times a day. nystatin (NYAMYC) 066762 UNIT/GM powder Greater than 1 Month at Unknown time Self No Yes Sig: Apply topically 2 times a day oxybutynin (DITROPAN-XL) 5 mg SR tablet (24 hr) 02/28/2019 at HS Self Yes Yes Sig: Take 5 mg by mouth every night at bedtime phentermine (ADIPEX-P) 37.5 MG tablet Past month at Unknown time Self No Yes Sig: Take 1 tablet (37.5 mg) by mouth 1 time a day in the morning polyethylene glycol (MIRALAX) powder Past month at Unknown time Self No Yes Sig: Take 3 teaspoonsful (17 g) by mouth 1 time a day as needed for constipation potassium chloride (K-TAB) 10 mEq CR tablet 03/01/2019 at 0300 Self No Yes Sig: Take 2 tablets (20 mEq) by mouth 2 times a day predniSONE 5 mg tablet 03/01/2019 at 0300 Self No Yes Sig: Take 1 tablet (5 mg) by mouth 1 time per day pregabalin (LYRICA) 75 mg capsule 03/01/2019 at 0300 Self Yes Yes Si capsule (75 mg) in the morning and 2 capsules (150 mg) at night sertraline (ZOLOFT) 100 mg tablet 03/01/2019 at 0300 Self Yes Yes Sig: Take 100 mg by mouth 1 time per day sulfaSALAzine (AZULFIDINE) 500 mg tablet Greater than 1 Month at Unknown time Self Yes Yes Sig: Take 500 mg by mouth as needed for other (Specify) traMADol (ULTRAM) 50 mg tablet Past month at Unknown time Self Yes Yes Sig: Take 50 mg by mouth every 6 hours as needed for other (Specify) (pain) triamcinolone (KENALOG IN ORABASE) 0.1 % paste Greater than 1 Month at Unknown time Self No Yes Sig: Apply twice a day to canker sores vitamin D3, cholecalciferol, 5000 units tablet 02/01/2019 at Unknown time Self Yes Yes Sig: Take 5,000 Units by mouth 1 time per day Facility-Administered Medications: None Robert Hernández, PHARM D documented in this encounter Plan of Treatment Date Type Specialty Care Team Description 03/14/2019 Office Visit Neurology Jeremiah Kuhn PA-C [address] [place] [address] [phone] 03/14/2019 Office Visit Orthopedics Myles So PA [address] [place] [phone] 03/28/2019 Office Visit Orthopedics Yonathan Garcia MD [address] [place] [address] [phone] 04/10/2019 Appointment Pulmonary Tanna Sifuentes MD [address] [place] [address] [phone] 04/10/2019 Office Visit Pulmonary Tanna Sifuentes MD [address] [place] [address] 05/08/2019 Office Visit SLEEP MEDICINE Robinson Morocho MD [address] [facility] [place] [address] [phone] 01/28/2020 Ancillary Procedure Radiology 02/22/2020 Office Visit Endocrinology Stevo Huber MD [address] [place] [address] [phone] documented as of this encounter Implants Implanted Type Area Home Energy Consultant Device Shelf Model / Identifier Expiration Serial / Date Lot Cmnt Simplex P W Tobramyacin N 6197-9-010 Bx10/Ea - Sn/A Ortho Other Right: KNEE ZOHREH 10/05/2012 [id number] / Implanted: Qty: 1 on 10/06/2011 by Michael Aviles MD at [facility] N/A / [id number] Knee Ptla Dome 3peg Depuy 35mm N [id number] Ea - Sn/A Total Jt Right: K[employer]EE [employer] 07/05/2016 [id number] / Implanted: Qty: 1 on 10/06/2011 by Michale Aviles MD at [facility] Knee N/A / [id number] Knee Fem Pfc Cr Depuy Rt 4 N Ea - Sn/A Total Jt Right: KNEE [employer] 07/05/2021 / Implanted: Qty: 1 on 10/06/2011 by Michael Aviles MD at [facility] Knee N/A / [id number] Knee Insrt Curv Depuy 4 10mm N [id number] Ea - Sn/A Total Jt [employer] 09/04/2016 [id number] / Implanted: Qty: 1 on 10/06/2011 by Michael Aviles MD at [facility] Knee N/A / [id number] Knee Tib Base Mod Depuy 4 N [id number] Ea - Sn/A Total Jt Right: KNEE [employer] 07/05/2021 [id number] / Implanted: Qty: 1 on 10/06/2011 by Michael Aviles MD at [facility] Knee N/A / [id number] Shldr Baseplate Thrd [id number] N [id number] Ea - [id number] Total Jt Left: TORNIER 12/12/2023 [id number] / Implanted: Qty: 1 on 03/01/2019 by Yonathan Garcia MD at [facility] Shoulder ACROMIAL [id number] / PROCESS N/A Description:CONFIRMED. TS Shldr Gleno Ctr 11a18kg N [id number] Ea - [id number] Total Jt Shoulder Left: ACROMIAL TORNIER 12/27/2023 [id number] / Implanted: Qty: 1 on 03/01/2019 by Yonathan Garcia MD at [facility] PROCESS [id number] / N/A Description:CONFIRMED. TS Shldr Lk Screw 4.5x26mm N [id number] Ea1 - Sn/A Total Jt Shoulder Left: ACROMIAL PROCESS TORNIER [id number] / Implanted: Qty: 1 on 03/01/2019 by Yonathan Garcia MD at [facility] N/A / N/A Description:CONFIRMED. TS Shldr Lk Screw 4.5x20mm N [id number] Ea1 - Sn/A Total Jt Shoulder Left: ACROMIAL PROCESS TORNIER [id number] / Implanted: Qty: 2 on 03/01/2019 by Yonathan Garcia MD at [facility] N/A / N/A Description:CONFIRMED. TS Shldr Lk Screw 4.5x32mm N [id number] Ea1 - Sn/A Total Jt Shoulder Left: ACROMIAL PROCESS TORNIER [id number] / Implanted: Qty: 1 on 03/01/2019 by Yonathan Garcia MD at [facility] N/A / N/A Description:CONFIRMED. TS Shldr Rev Tray +6 3.5mm N [id number] Ea1 - [id number] Total Jt Shoulder Left: ACROMIAL TORNIER 05/29/2023 [id number] / Implanted: Qty: 1 on 03/01/2019 by Yonathan Garcia MD at [facility] PROCESS [id number] / N/A Description:CONFIRMED. TS Shldr Rev Insrt 36mm +9 B N [id number] Ea1 - [id number] Total Jt Shoulder Left: ACROMIAL TORNIER 08/11/2023 [id number] / Implanted: Qty: 1 on 03/01/2019 by Yonathan Garcia MD at [facility] PROCESS [id number] / N/A Description:CONFIRMED. TS Shldr Humr Stem Lng 2b 93mm N [id number] Ea1 (Aka [id number]) - [id number] Total Jt Shoulder Left: ACROMIAL TORNIER 12/06/2021 [id number] / Implanted: Qty: 1 on 03/01/2019 by Yonathan Garcia MD at [facility] PROCESS [id number] / N/A Description:CONFIRMED. TS Hip Shell Trid [place] 0hl 54mm N 540-11-54f Ea1 - Sn/A Left: ACETABULUM ZOHREH 04/04/2023 [id number] / Implanted: Qty: 1 on 08/08/2018 by Yonathan Garcia MD at [facility] N/A / [id number] Description:CONFIRMED. TS Hip Lnr Trid X3 Pe 10d 36mm F N 623-10-36f Ea1 - Sn/A Left: ACETABULUM ZOHREH 04/06/2023 623-10-36F / Implanted: Qty: 1 on 08/08/2018 by Yonathan Garcia MD at [facility] N/A / [id number] Description:CONFIRMED. TS Hip Stem Acldii 127d Sz5 N [id number] Ea1 - Sn/A Left: FEMUR ZOHREH [id number] / Implanted: Qty: 1 on 08/08/2018 by Yonathan Garcia MD at [facility] N/A / [id number] Description:CONFIRMED. TS Hip Hd V40 [place] Cer 36mm +0 N 6570-0-136 Ea1 - Sn/A Left: FEMUR ZOHREH 06/12/2023 [id number] / Implanted: Qty: 1 on 08/08/2018 by Yonathan Garcia MD at [facility] N/A / [id number] Description:CONFIRMED. TS Cmnt Bone Simplex Tobramyacin N 6197-9-001 Ea1 - Sn/A Left: ACROMIAL PROCESS ZOHREH 10/23/2019 [id number] / Implanted: Qty: 1 on 03/01/2019 by Yonathan Garcia MD at [facility] N/A / [id number] Description:CONFIRMED. TS documented as of this encounter Procedures Procedure Name Priority Date/Time Associated Comments Diagnosis GLUCOSE BY METER, Routine 03/04/2019 9:32 Results for this POCT PM [employer]OR [employer]URNITURE procedure are in the results section. HEMOGLOBIN Routine 03/03/2019 6:19 Results for this AM [employer]URNITURE procedure are in the results section. COMPLETE BLOOD COUNT Routine 03/02/2019 5:18 Results for this WITHOUT DIFFERENTIAL AM [employer]URNITURE procedure are in the results section. BASIC METABOLIC PANEL Routine 03/02/2019 5:18 Results for this AM [employer]URNITURE procedure are in the results section. XRAY SHOULDER 1 VIEW Routine 03/01/2019 12:14 Results for this LT PM [employer]URNITURE procedure are in the results section. TISSUE EXAM Routine 03/01/2019 10:17 Shoulder joint pain Results for this AM [employer]URNITURE procedure are in the results section. ARTHROPLASTY SHOULDER 03/01/2019 7:51 Shoulder joint pain AM [employer]URN[facility] POTASSIUM STAT 03/01/2019 5:59 Results for this AM [employer]OR FURNITURE procedure are in the results section. documented in this encounter Results GLUCOSE BY METER, POCT (03/04/2019 9:32 PM DIRECTOR FURNITURE) Glucose POC 116 (H) 70 - 100 mg/dL [facility] Specimen Blood Performing Organization Address [facility] Phone Number [facility] [address] [place], [place] [phone] HEMOGLOBIN (03/03/2019 6:19 AM DIRECTOR FURNITURE) Hemoglobin 9.3 (L) 11.5 - 15.8 g/dL [facility] Specimen Blood Performing Organization Address [facility] Phone Number [facility] [address] [phone] BASIC METABOLIC PANEL (03/02/2019 5:18 AM DIRECTOR FURNITURE) Glucose 111 (H) 70 - 100 mg/dL [facility] BUN 13 6 - 22 mg/dL [facility] Creatinine 0.72 0.60 - 1.10 [facility] mg/dL [place] BUN/Creatinine Ratio 18.1 10.0 - 25.[address] [facility] Sodium 142 135 - 145 meq/L [facility] Potassium 4.4 3.5 - 5.3 meq/L [facility] Chloride 108 99 - 110 meq/L [facility] CO2 28 20 - 29 meq/L [facility] Anion Gap with K 10 6 - 20 meq/L [facility] Calcium 8.5 8.5 - 10.5 [facility] mg/dL [place] Age [address] [facility] eGFR Non- 82 >=60 [facility] mL/min/1.73m2 [place] eGFR >90 >=60 [facility] mL/min/1.73m2 [place] Specimen Blood Performing Organization Address [facility] Phone Number [facility] [address] [place], [place] [phone] COMPLETE BLOOD COUNT WITHOUT DIFFERENTIAL (03/02/2019 5:18 AM DIRECTOR FURNITURE) [facility] WBC 7.4 4.0 - 11.0 K/uL [facility] RBC 3.40 (L) 3.80 - 5.30 M/uL [facility] Hemoglobin 9.4 (L) 11.5 - 15.8 g/dL [facility] Hematocrit 31.0 (L) 35.0 - 45.0 % [facility] MCV 91.2 80.0 - 98.[address] [facility] MCH 27.6 25.5 - 34.[address] [facility] MCHC 30.3 (L) 31.5 - 36.5 g/dL [facility] RDW-CV 17.2 (H) 11.5 - 15.5 % [facility] RDW-SD 54.7 (H) 35.5 - 50.[address] [facility] Platelet Count 164 140 - 400 K/uL [facility] MPV 11.1 8.5 - 12.[address] [facility] Specimen Blood Performing Organization Address [facility] Phone Number [facility] [address] [place], [place] [phone] XRAY SHOULDER 1 VIEW LT (03/01/2019 12:14 PM DIRECTOR FURNITURE) Specimen Narrative Performed At [facility] Patient Name: BÁRBARA MATTHEW Date of :1955 Procedure: XRAY SHOULDER 1 VIEW LT Date of Service: 03/01/2019 EXAM: XRAY SHOULDER 1 VIEW LT INDICATION: L Rev TSA COMPARISON(S): 01/02/2019 FINDINGS/IMPRESSION: Examination of the left shoulder in one AP projection shows postoperative changes of recent reverse left shoulder arthroplasty. No evidence of hardware loosening, periprosthetic fracture, or other complication. Finalized by: Kem Solares MD on 03/01/2019 12:36 PM DIRECTOR FURNITURE Patient/Procedure Information: [facility] MRN/MASSIEL: [id number] Order Number: [id number] Accession Number: [id number] Ordering Provider: HUGH AGUILAR Authorizing Provider: HUGH AGUILAR Procedure Note Interface, Radiantres - 03/01/2019 12:38 PM DIRECTOR FURNITURE Patient Name: BÁRBARA MATTHEW Date of : 1955 Procedure: XRAY SHOULDER 1 VIEW LT Date of Service: 03/01/2019 EXAM: XRAY SHOULDER 1 VIEW LT INDICATION: L Rev TSA COMPARISON(S): 01/02/2019 FINDINGS/IMPRESSION: Examination of the left shoulder in one AP projection shows postoperative changes of recent reverse left shoulder arthroplasty. No evidence of hardware loosening, periprosthetic fracture, or other complication. Finalized by: Kem Solares MD on 03/01/2019 12:36 PM DIRECTOR FURNITURE Patient/Procedure Information: [facility] MRN/MASSIEL: [id number] Order Number: [id number] Accession Number: [id number] Ordering Provider: HUGH AGUILAR Authorizing Provider: HUGH AGUILAR Performing Organization Address City/State/Zipcode Phone Number [phone] TISSUE EXAM (03/01/2019 10:17 AM DIRECTOR FURNITURE) FINAL DIAGNOSIS Left shoulder bone: [facility] Electronically signed - Bony tissue received as described (gross examination only; see gross description). CLINIC by Yosef Leslie MD on 03/02/2019 at [place]:pf 8:03 AM GROSS DESCRIPTION Received in formalin labeled "left shoulder bone" is a 14.6 x 13.4 x 1.4 cm aggregate of pink-bolton, irregular bony fragments. The identifiable articular surfaces are yellow-bolton and smooth with marked ar [facility] eas of eburnation. The cut surfaces are yellow-pink, porous and smooth. No masses or lesions are grossly identified. No sections submitted. Gross examination only. CLINIC MS:pf CASE REPORT Surgical Pathology Report Case: [id number] [facility] Authorizing Provider:Yonathan Garcia MD Collected: 03/01/2019 1017 CLINIC Ordering Location: Intra OP Care GAY Received: 03/01/2019 1136 Pathologist: Yosef Leslie MD Specimen:Shoulder, Left Shoulder Bone EMBEDDED IMAGES [facility] Specimen Bone Performing Organization Address [facility]/Zipcode Phone Number [facility] [address] [place] [address] POTASSIUM (03/01/2019 5:59 AM DIRECTOR FURNITURE) Potassium 4.2 3.5 - 5.3 meq/L [facility] Specimen Blood Performing Organization Address City/State/Zipcode Phone Number [facility] [address] [facility] [place] [phone] documented in this encounter Visit Diagnoses Diagnosis Shoulder joint pain Pain in joint, shoulder region Psoriasis Other psoriasis Mild persistent asthma without complication Unspecified asthma documented in this encounter Discharge Diagnoses Not on filedocumented in this encounter Administered Medications Medication Order MAR Action Action Date Dose Rate Site acetaminophen (TYLENOL) tablet Given 03/06/2019 12:19 PM DIRECTOR FURNITURE 650 mg 650 mg 650 mg, Oral, Every six hours, First dose on Tiffani 03/01/19 at 1800, Until Discontinued, Post - Op, Alternate with tramadol (ULTRAM); Total dose of acetaminophen from all acetaminophen containing products should not exceed 4 grams (4000 mg) per day., Given 03/05/2019 5:42 PM DIRECTOR FURNITURE 650 mg Given 03/05/2019 6:17 AM DIRECTOR FURNITURE 650 mg ALPRAZolam (XANAX) tablet 0.25 mg Given 03/05/2019 10:06 PM DIRECTOR FURNITURE 0.25 mg 0.25 mg, Oral, Bedtime, First dose on Tiffani 03/01/19 at 2100, Until Discontinued Given 03/04/2019 9:27 PM DIRECTOR FURNITURE 0.25 mg Given 03/03/2019 9:05 PM DIRECTOR FURNITURE 0.25 mg aspirin (ECOTRIN) enteric coated tablet 325 Given 03/06/2019 8:23 AM DIRECTOR FURNITURE 325 mg mg 325 mg, Oral, Daily, First dose on Tue03/02/19 at 0900, Until Discontinued, Post - Op, Tablet should be swallowed whole and not be divided, crushed or chewed., Given 03/05/2019 8:36 AM DIRECTOR FURNITURE 325 mg Given 03/04/2019 9:07 AM DIRECTOR FURNITURE 325 mg azaTHIOprine (IMURAN) tablet 50 mg Given 03/06/2019 8:23 AM DIRECTOR FURNITURE 50 mg 50 mg, Oral, Two times a day, First dose on Tue03/01/19 at 2100, Until Discontinued, This medication is a low risk cytotoxic drug. Wear 2 pairs of chemo gloves for administration. If unable to administer dose intact - contact pharmacy for other administration options. Dispose of empty packages in the yellow cytotoxic waste. Dispose of unused or partial packages in the black waste containers., Given 03/05/2019 10:07 PM DIRECTOR FURNITURE 50 mg Given 03/05/2019 8:38 AM DIRECTOR FURNITURE 50 mg baclofen (LIORESAL) tablet 10 mg Given 03/06/2019 8:23 AM DIRECTOR FURNITURE 10 mg 10 mg, Oral, Three times a day, First dose on Tue03/01/19 at 1500, Until Discontinued Given 03/05/2019 10:06 PM DIRECTOR FURNITURE 10 mg Given 03/05/2019 3:20 PM DIRECTOR FURNITURE 10 mg bisacodyl (DULCOLAX) enteric coated tablet 5 Given 03/04/2019 6:03 PM DIRECTOR FURNITURE 5 mg mg 5 mg, Oral, Two times a day prn, Starting Tue03/01/19 at 1331, Until Discontinued, constipation, Post - Op, SECOND choice or per patient preference, bisacodyl (DULCOLAX) suppository 10 mg Given 03/04/2019 9:20 PM DIRECTOR FURNITURE 10 mg 10 mg, Rectal, One time a day prn, Starting Tue03/01/19 at 1331, Until Discontinued, constipation, Post - Op, THIRD choice or per patient preference. If patient cannot take oral medications, use first for constipation., celecoxib (celeBREX) capsule 200 mg Given 03/06/2019 8:23 AM DIRECTOR FURNITURE 200 mg 200 mg, Oral, Two times a day, 20 doses, First dose on Tue03/02/19 at 2100, Last dose on Tue03/12/19 at 0900, Post - Op Given 03/05/2019 10:07 PM DIRECTOR FURNITURE 200 mg Given 03/05/2019 8:36 AM DIRECTOR FURNITURE 200 mg enoxaparin (LOVENOX) subcutaneous injection Given 03/06/2019 8:25 AM DIRECTOR FURNITURE 40 mg solution 40 mg 40 mg, Subcutaneous, Two times a day, First dose on Tue03/03/19 at 2100, Until Discontinued, To avoid the loss of drug when using the 30 mg and 40 mg prefilled syringes, do not expel the air bubble from the syringe before the injection. Administration should be alternated between the left and right anterolateral and left and right posterolateral abdominal wall. The whole length of the needle should be introduced into a skin fold held between the thumb and forefinger; the skin fold should be held throughout the injection. To minimize bruising, do not rub the injection site after completion of the injection., Given 03/05/2019 10:07 PM DIRECTOR FURNITURE 40 mg Given 03/05/2019 8:36 AM DIRECTOR FURNITURE 40 mg fluticasone-vilanterol (BREO ELLIPTA) 100-25 Given 03/05/2019 6:42 PM DIRECTOR FURNITURE 1 puff mcg/puff inhaler 1 puff 1 puff, Inhalation, Bedtime, First dose on Tiffani 03/01/19 at 1800, Until Discontinued, Rinse mouth after use., Patient s own medication has been identified by Pharmacist and approved for hospital use by hospital policy., , Given 03/04/2019 10:20 PM DIRECTOR FURNITURE 1 puff Given 03/03/2019 10:21 PM DIRECTOR FURNITURE 1 puff hydroCHLOROthiazide tablet 12.5 mg Given 03/06/2019 8:23 AM DIRECTOR FURNITURE 12.5 mg 12.5 mg, Oral, DAILY, First dose on Tue03/02/19 at 0900, Until Discontinued, Hold for SBP less than 100, Given 03/05/2019 8:35 AM DIRECTOR FURNITURE 12.5 mg Given 03/04/2019 8:39 AM DIRECTOR FURNITURE 12.5 mg ketoconazole (NIZORAL) 2 % cream 1 Given 03/06/2019 8:25 AM DIRECTOR FURNITURE 1 application application 1 application, Apply externally, DAILY, First dose on Tue03/02/19 at 0900, Until Discontinued Given 03/05/2019 8:40 AM DIRECTOR FURNITURE 1 application Given 03/04/2019 8:38 AM DIRECTOR FURNITURE 1 application levothyroxine tablet 150 mcg Given 03/06/2019 8:23 AM DIRECTOR FURNITURE 150 mcg 150 mcg, Oral, DAILY, First dose on Tue03/02/19 at 0700, Until Discontinued Given 03/05/2019 6:17 AM DIRECTOR FURNITURE 150 mcg Given 03/04/2019 6:43 AM DIRECTOR FURNITURE 150 mcg liothyronine (CYTOMEL) tablet 5 mcg Given 03/06/2019 8:26 AM DIRECTOR FURNITURE 5 mcg 5 mcg, Oral, DAILY, First dose on Tue03/02/19 at 0730, Until Discontinued Given 03/05/2019 8:36 AM DIRECTOR FURNITURE 5 mcg Given 03/04/2019 6:43 AM DIRECTOR FURNITURE 5 mcg magnesium hydroxide (MILK OF MAGNESIA) oral Given 03/04/2019 6:03 PM DIRECTOR FURNITURE 30 mL suspension 30 mL 30 mL, Oral, Two times a day prn, Starting Tiffani 03/01/19 at 1331, Until Discontinued, constipation, 30 mL, Post - Op, FIRST choice or per patient preference. Exception: Nephrology/renal patients, Given 03/04/2019 10:51 AM DIRECTOR FURNITURE 30 mL metoprolol tartrate (LOPRESSOR) tablet 25 mg Given 03/06/2019 8:23 AM DIRECTOR FURNITURE 25 mg 25 mg, Oral, Two times a day, First dose on Tue03/01/19 at 2100, Until Discontinued, Hold for SBP less than 90 Hold for HR less than 60, Given 03/05/2019 10:07 PM DIRECTOR FURNITURE 25 mg Given 03/05/2019 8:35 AM DIRECTOR FURNITURE 25 mg nystatin (NYAMYC) [id number] UNIT/GM powder Given 03/06/2019 8:25 AM DIRECTOR FURNITURE Apply externally, Two times a day, First dose on Tiffani 03/01/19 at 2100, Until Discontinued Given 03/04/2019 8:38 AM DIRECTOR FURNITURE ondansetron (ZOFRAN) injection solution 4 mg Given 03/02/2019 5:55 PM DIRECTOR FURNITURE 4 mg 4 mg, IV, Every four hours prn, Starting Tiffani 03/01/19 at 1135, Until Discontinued, nausea, vomiting, 2 mL, PACU - Continue Post-Op, Use FIRST for nausea/vomiting. If ineffective after 15 minutes use haloperidol if ordered for nausea/vomiting. If preference is to further dilute for IV administration: First draw up patient-specific dose, then dilute to 10 mL with 0.9% sodium chloride., oxybutynin (DITROPAN-XL) SR tablet (24 hr) 5 Given 03/05/2019 10:06 PM DIRECTOR FURNITURE 5 mg mg 5 mg, Oral, Bedtime, First dose on Tiffani 03/01/19 at 2100, Until Discontinued, Tablet should not be crushed or chewed., Given 03/04/2019 10:13 PM DIRECTOR FURNITURE 5 mg Given 03/03/2019 8:59 PM DIRECTOR FURNITURE 5 mg oxyCODONE (OXY-IR) tablet 5-10 mg Given 03/02/2019 11:01 AM DIRECTOR FURNITURE 10 mg 5-10 mg, Oral, Every four hours prn, Starting Tiffani 03/01/19 at 1331, Until Discontinued, moderate pain, severe pain, Post - Op, For patients with moderate pain, pain rating of 4-6, give Oxycodone 5mg PO every 4 hours PRN. For patients with severe pain, pain rating of 7-10, give Oxycodone 10mg PO every 4 hours PRN., polyethylene glycol (MIRALAX) packet 1 Given 03/06/2019 8:24 AM DIRECTOR FURNITURE 1 packet packet 1 packet, Oral, Daily, First dose on Tue03/02/19 at 0900, Until Discontinued, Post - Op, Hold if 2 loose stools occur in the last 24 hours., Given 03/05/2019 8:39 AM DIRECTOR FURNITURE 1 packet Given 03/04/2019 8:37 AM DIRECTOR FURNITURE 1 packet potassium chloride (K-TAB) CR tablet 20 mEq Given 03/06/2019 8:23 AM DIRECTOR FURNITURE 20 mEq 20 mEq, Oral, Two times a day, First dose on Tiffani 03/01/19 at 2100, Until Discontinued, Tablet should not be crushed or chewed., Given 03/05/2019 10:06 PM DIRECTOR FURNITURE 20 mEq Given 03/05/2019 8:35 AM DIRECTOR FURNITURE 20 mEq predniSONE tablet 5 mg Given 03/06/2019 8:23 AM DIRECTOR FURNITURE 5 mg 5 mg, Oral, DAILY, First dose on Tue03/02/19 at 0900, Until Discontinued Given 03/05/2019 8:35 AM DIRECTOR FURNITURE 5 mg Given 03/04/2019 9:07 AM DIRECTOR FURNITURE 5 mg pregabalin (LYRICA) CAPS 150 mg Given 03/05/2019 10:07 PM DIRECTOR FURNITURE 150 mg 150 mg, Oral, Bedtime, First dose on Tue03/01/19 at 2100, Until Discontinued Given 03/04/2019 9:28 PM DIRECTOR FURNITURE 150 mg Given 03/03/2019 8:57 PM DIRECTOR FURNITURE 150 mg pregabalin (LYRICA) CAPS 75 mg Given 03/06/2019 8:24 AM DIRECTOR FURNITURE 75 mg 75 mg, Oral, Daily, First dose on Tue03/02/19 at 0900, Until Discontinued Given 03/05/2019 9:08 AM DIRECTOR FURNITURE 75 mg Given 03/04/2019 9:42 AM DIRECTOR FURNITURE 75 mg senna-docusate sodium Given 03/06/2019 8:24 AM DIRECTOR FURNITURE 1 tablet (SENOKOT-S;PERICOLACE) tablet 1 tablet 1 tablet, Oral, Two times a day, First dose on Tue03/01/19 at 2100, Until Discontinued, Post - Op, Hold if 2 loose stools occur in the last 24 hours., Given 03/05/2019 10:06 PM DIRECTOR FURNITURE 1 tablet Given 03/05/2019 8:38 AM DIRECTOR FURNITURE 1 tablet sertraline (ZOLOFT) tablet 100 mg Given 03/06/2019 8:23 AM DIRECTOR FURNITURE 100 mg 100 mg, Oral, DAILY, First dose on Tue03/02/19 at 0900, Until Discontinued Given 03/05/2019 8:35 AM DIRECTOR FURNITURE 100 mg Given 03/04/2019 9:42 AM DIRECTOR FURNITURE 100 mg sodium chloride 0.9% flush (adult) 10 mL Given 03/06/2019 8:30 AM DIRECTOR FURNITURE 10 mL 10 mL, IV, Two times a day and prn, First dose on Tue03/01/19 at 2100, Until Discontinued, 10 mL, Post - Op, Flush IV line as scheduled and as often as necessary before and after meds., Given 03/05/2019 8:40 AM DIRECTOR FURNITURE 10 mL Given 03/04/2019 10:14 PM DIRECTOR FURNITURE 10 mL traMADol (ULTRAM) tablet 50 mg Given 03/06/2019 8:23 AM DIRECTOR FURNITURE 50 mg 50 mg, Oral, Every six hours, First dose on Tue03/05/19 at 1500, Until Discontinued, Post - Op, Alternate with acetaminophen (TYLENOL). Recommended maximum daily dose of ulqMXSca=417 mg. Recommended maximum daily dose in patients greater than 75 years of hmy=356 mg, Given 03/05/2019 10:07 PM DIRECTOR FURNITURE 50 mg Given 03/05/2019 3:20 PM DIRECTOR FURNITURE 50 mg Medication Order MAR Action Action Date Dose Rate Site acetaminophen (TYLENOL) tablet Given 03/01/2019 7:13 AM DIRECTOR FURNITURE 1,000 mg 1,000 mg 1,000 mg, Oral, Pre-op, 1 dose, Tiffani 03/01/19 at 0545, Pre - Op, Total dose of acetaminophen from all acetaminophen containing products should not exceed 4 grams (4000 mg) per day., ceFAZolin (ANCEF) 2000 mg/20 mL sterile Given 03/02/2019 2:24 AM DIRECTOR FURNITURE 2,000 mg water IV syringe 2,000 mg, IV, Every eight hours, 2 doses, First dose on Tiffani 03/01/19 at 1800, Last dose on Tue03/02/19 at 0200, 20 mL, PACU - Continue Post-Op, Administer as IV push over 4 minutes., Given 03/01/2019 6:33 PM DIRECTOR FURNITURE 2,000 mg fentaNYL 100 mcg/2 mL preservative free Given 03/01/2019 12:30 PM DIRECTOR FURNITURE 50 mcg injection solution 50 mcg 50 mcg, IV, Every five minutes prn, 6 doses, Starting Tiffani 03/01/19 at 1106, Until Tiffani 03/01/19 at 1322, moderate pain, severe pain, 2 mL, PACU, For pain scale 4 to 6 or pain not relieved by medications for pain Scale 1 - 3 or for pain scale 7 or greater or pain not relieved by medications for pain scale 4 to 6 Max 300 mcg total accumulated dose. Use only anesthesia's orders for moderate/severe pain while in PACU or recovery care, Given 03/01/2019 12:02 PM DIRECTOR FURNITURE 50 mcg gabapentin (NEURONTIN) capsule 600 mg Given 03/01/2019 7:13 AM DIRECTOR FURNITURE 600 mg 600 mg, Oral, Pre-op, 1 dose, Tiffani 03/01/19 at 0545, Pre - Op, 1 dose prior to surgery, HYDROmorphone (DILAUDID) injection solution Given 03/01/2019 1:00 PM DIRECTOR FURNITURE 0.5 mg (conc: 0.5 mg/0.5mL) 0.5 mg 0.5 mg, IV, Every ten minutes prn, 4 doses, Starting Tiffani 03/01/19 at 1106, Until Tiffani 03/01/19 at 1322, severe pain, Use for severe pain uncontrolled by fentaNYL.May continue to use HYDROmorphone once started as long as pain is rated as severe, 0.5 mL, PACU, For pain scale 7 or greater or pain not relieved by medications for pain scale 4 to 6 Max total dose 2 mg. Use only anesthesia's orders for severe pain while in PACU or recovery care, ketorolac (TORADOL) intravenous injection 15 Given 03/01/2019 7:13 AM DIRECTOR FURNITURE 15 mg mg 15 mg, IV, Pre-op, 1 dose, Tiffani 03/01/19 at 0545, 1 mL, Pre - Op, 1 dose prior to surgery If preference is to further dilute for IV administration: First draw up patient-specific dose, then dilute to 10 mL with 0.9% sodium chloride., lactated ringers IV solution New Bag 03/01/2019 10:25 AM DIRECTOR FURNITURE IV, at 25 mL/hr, Continuous, Starting Tiffani 03/01/19 at 0645, Until Tiffani 03/01/19 at 1134, 1,000 mL, Pre - Op New Bag/Tubing 03/01/2019 7:00 AM DIRECTOR FURNITURE 25 mL/hr lactated ringers IV solution Already Infusing 03/01/2019 11:34 AM DIRECTOR FURNITURE 125 mL/hr IV, at 125 mL/hr, Continuous, Starting Tiffani 03/01/19 at 1110, Until Tiffani 03/01/19 at 1322, 1,000 mL, PACU, TKO current fluids if patient is going to Day Unit / ARU and tolerating PO fluids without nausea., lidocaine PF (XYLOCAINE-MPF) Given 03/01/2019 7:00 AM DIRECTOR FURNITURE 0.1 mL Right Hand Top IV 1 % preservative free injection solution 0.1-0.3 mL 0.1-0.3 mL, Intradermal, Pre-op, 1 dose, Tiffani 03/01/19 at 0645, 2 mL, Pre - Op, IV start, sodium chloride 0.9% IV solution New Bag/Tubing 03/01/2019 1:45 PM DIRECTOR FURNITURE 100 mL/hr IV, at 100 mL/hr, Continuous, Starting Tiffani 03/01/19 at 1335, Until Tue03/02/19 at 0519, 1,000 mL, Post - Op traMADol (ULTRAM) tablet 100 mg Given 03/01/2019 7:13 AM DIRECTOR FURNITURE 100 mg 100 mg, Oral, Pre-op, 1 dose, Tiffani 03/01/19 at 0545, Pre - Op, Recommended maximum daily dose of zaxapkgu=151 mg. Recommended maximum daily dose in patients 75 years or wdfct=662 mg., traMADol (ULTRAM) tablet 100 mg Given 03/05/2019 8:37 AM DIRECTOR FURNITURE 100 mg 100 mg, Oral, Every six hours, First dose on Tiffani 03/01/19 at 1500, Until Discontinued, Post - Op, Alternate with acetaminophen (TYLENOL). Recommended maximum daily dose of qncKROov=513 mg. Recommended maximum daily dose in patients greater than 75 years of age=300 mg, Given 03/05/2019 3:33 AM DIRECTOR FURNITURE 100 mg Given 03/04/2019 9:27 PM DIRECTOR FURNITURE 100 mg documented in this encounter
[2019-03-06] MEDS ORDERED: Nystatin Topical Powder 15 GM Bottle TOP SCH (18:00)
[2019-03-06] MEDS: Acetaminophen 325 MG Tab PO SCH ×2 (18:14→21:19)
[2019-03-06] MEDS: Baclofen 10 MG Tab PO SCH (18:16)
[2019-03-06] MEDS: Potassium Chloride 10 MEQ Tab.ER PO SCH (18:16)
[2019-03-06] MEDS: Metoprolol Tartrate 25 MG Tab PO SCH (18:23)
[2019-03-06] MEDS ORDERED: BLACK COHOSH PO SCH (20:00)
[2019-03-06] MEDS: Pregabalin 75 MG Cap PO SCH (20:27)
[2019-03-06] MEDS: ALPRAZolam 0.25 MG Tab PO SCH (20:28)
[2019-03-06] MEDS: MELATONIN 1 MG PO SCH (20:28)
[2019-03-06] MEDS: traMADol 50 MG Tab PO SCH (21:19)
--- NOTE | 2019-03-06 22:58 | PCM.HP.2 ---
H&P History of Present Illness - General Date of Service: 03/06/19 Admit Problem/Dx: Admission Diagnosis/Problem Admission Diagnosis/Problem Left shoulder pain Source of Information: Patient, Old Records - History of Present Illness Location: Reports: Upper Extremity, Left Associated Symptoms: Reports: No Other Symptoms - Related Data Allergies/Adverse Reactions: Allergies Allergy/AdvReac Type Severity Reaction Status Date / Time generic pain medication Allergy Vomiting Uncoded 11/15/14 23:34 Home Medications: Home Meds ALPRAZolam [Alprazolam] 0.25 mg PO BEDTIME 12/25/13 [History] Albuterol [Proventil HFA] 2 puff INH Q4HR PRN 12/25/13 [History] Baclofen 10 mg PO TID 12/25/13 [History] Clobetasol [Clobetasol Propionate 0.05% Cream] 1 applic TOP BID PRN 12/25/13 [ History] Folic Acid 1 mg PO DAILY 12/25/13 [History] Interferon Beta-1a w/Albumin [Rebif] 44 mcg SUBCUT MOWEFR@2100 12/25/13 [History ] Metoprolol Tartrate [Lopressor] 25 mg PO BID 12/25/13 [History] Multivitamin [Multi-Vitamin Daily] 1 tab PO DAILY 12/25/13 [History] Potassium Chloride 20 meq PO BID 12/25/13 [History] Sertraline [Zoloft] 100 mg PO DAILY 12/25/13 [History] azaTHIOprine [Azathioprine] 1 tab PO BID 12/25/13 [History] hydroCHLOROthiazide [Hydrochlorothiazide] 12.5 mg PO DAILY 11/15/14 [History] Cinnamon Bark [Cinnamon] 500 mg PO DAILY 06/22/18 [History] Fluticasone/Vilanterol [Breo Ellipta 100-25 MCG Inhalation Kit] 1 puff IH BEDTIME 06/22/18 [History] Liothyronine [Cytomel] 5 mcg PO DAILY 06/22/18 [History] Oxybutynin [Oxybutynin ER] 5 mg PO DAILY 06/22/18 [History] Phentermine HCl 37.5 mg PO DAILY 06/22/18 [History] Pregabalin [Lyrica] 75 mg PO DAILY 06/22/18 [History] Pregabalin [Lyrica] 150 mg PO BEDTIME 06/22/18 [History] Triamcinolone Acetonide [Kenalog 0.1% Crm] 1 applic TOP BID PRN 06/22/18 [ History] sulfaSALAzine 500 mg PO DAILY PRN 06/22/18 [History] Levothyroxine 150 mcg PO DAILY 08/11/18 [History] Nystatin [Nyamyc] 1 applic TOP BID 08/11/18 [History] Polyethylene Glycol 3350 [Miralax] 17 gm PO DAILY PRN 08/11/18 [History] Cholecalciferol (Vitamin D3) [Vitamin D3] 5,000 units PO DAILY tablet 08/24/18 [Rx] predniSONE 5 mg PO DAILY@1200 tablet 08/24/18 [Rx] Acetaminophen [Tylenol] 650 mg PO Q6H 03/06/19 [History] Aspirin 1 tab PO DAILY 03/06/19 [History] Aspirin [Aspirin EC] 1 tab PO DAILY 03/06/19 [History] Betamethasone Dipropionate 1 applic TOP DAILY PRN 03/06/19 [History] Bisacodyl [Dulcolax] 5 mg PO BID PRN 03/06/19 [History] Black Cohosh 1 tab PO BEDTIME 03/06/19 [History] Calcium Citrate 2 tab PO DAILY 03/06/19 [History] Celecoxib 200 mg PO DAILY 03/06/19 [History] Cyanocobalamin (Vitamin B-12) [B-12] 1 tab PO DAILY 03/06/19 [History] Garlic 1 cap PO DAILY 03/06/19 [History] Makenna Root 1 cap PO DAILY 03/06/19 [History] Ketoconazole [Nizoral 2% Crm] 1 applic TOP DAILY 03/06/19 [History] L.acidoph,Paracasei, B.lactis [Probiotic] 3 cap PO DAILY 03/06/19 [History] Melatonin 1 tab PO BEDTIME 03/06/19 [History] Multivitamin with Minerals [Hair, Skin and Nails] 1 tab PO DAILY 03/06/19 [ History] [place]-3/DHA/Epa/Fish Oil [Fish Oil 1,400 MG Softgel] 1 cap PO DAILY 03/06/19 [ History] Sennosides/Docusate Sodium [Senna-Docusate Sodium Tablet] 1 tab PO BID 03/06/19 [History] Turmeric 1 cap PO DAILY 03/06/19 [History] oxyCODONE 1 - 2 tab PO Q6H PRN 03/06/19 [History] traMADol [Ultram] 50 mg PO Q6HR 03/06/19 [History] Past Medical History HEENT History: Reports: Impaired Vision, Other (See Below) Other HEENT History: She wears glasses. Cardiovascular History: Reports: Arrhythmia, Heart Failure, High Cholesterol, Hypertension, Other (See Below) Other Cardiovascular History: PVCs. Dyslipidemia and obesity. Respiratory History: Reports: Asthma, Bronchitis, Recurrent, COPD, Intubation, Previous, Pneumonia, Recurrent, Pulmonary Fibrosis, Sleep Apnea, Other (See Below) Other Respiratory History: Sleep apnea and restless leg syndrome with patient noncompliant with her CPAP recently Gastrointestinal History: Reports: Cholelithiasis, Chronic Constipation, Diverticulosis, Gastritis, GERD, Hiatal Hernia, Other (See Below) Other Gastrointestinal History: Ventral abdominal hernias by CT scan. Genitourinary History: Reports: Hydronephrosis, Renal Calculus, Urinary Incontinence, Other (See Below) Other Genitourinary History: Sided urolithiasis on 10/22/12. Moderate right- sided hydronephrosis with additional urolithiasis with spontaneous passage on 12/25/13. 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 Surgical menopause as below secondary to polycystic ovarian syndrome. 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 Small proximal avulsion fracture of the middle phalanx of digit #5 of the left hand with PIP dislocation on 11/05/14 with dislocation of the middle phalanx. Neurological History: Reports: Headaches, Chronic, MS, Neuropathy, Peripheral, Speech Problems, Vertigo, Other (See Below) Other Neuro History: Restless leg syndrome. Occasional dysarthria and vertigo/ dizziness secondary to her MS diagnosed on 10/18/06 by MRI as below. Psychiatric History: Reports: Addiction, Anxiety, Depression, Other (See Below) Other Psychiatric History: Intermittent Ultram use. 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 Hypokalemia. Hematologic History: Reports: Other (See Below) Other Hematologic History: Anemia after first . Immunologic History: Reports: None, Immunosuppression, Other (See Below) Other Immunologic History: Immunosuppression secondary to medical therapy for her MS. 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 Dermatologic History: Reports: Psoriasis - Infectious Disease History Infectious Disease History: Reports: Chicken Pox, Influenza (Influenza A on 04/02), Mononucleosis (Recurrent in her 30s), Rheumatic Fever (1994.). Denies: C- Difficile, Measles, Meningitis, MRSA, Mumps, Pertussis (Whooping Cough), Rubella , Scarlet Fever, Shingles, TB, VRE - Past Surgical History Head Surgeries/Procedures: Reports: None HEENT Surgical History: Reports: Oral Surgery, Other (See Below) Other HEENT Surgeries/Procedures: Multiple teeth extractions. Cardiovascular Surgical History: Reports: None Respiratory Surgical History: Reports: Other (See Below) Other Respiratory Surgeries/Procedures: Bronchoscopy at age 6 to remove a peanut. GI Surgical History: Reports: Bariatric Procedure, Cholecystectomy, Colonoscopy , Other (See Below) Other GI Surgeries/Procedures: Colonoscopy last in 2009. Gastric banding in 2008. Laparoscopic cholecystectomy in 2007. Female Surgical History: Reports: Breast Biopsy, D&C, Hysterectomy, Oophorectomy, Salpingo-Oophorectomy, Tubal Ligation, Other (See Below) Other Female Surgeries/Procedures: Lateral tubal ligation in 1987. D&C secondary to dysfunctional uterine bleeding on 10/06/95. Left-sided oophorectomy in April 1985. Laparoscopic assisted vaginal hysterectomy with concomitant right-sided salpingo-oophorectomy and posterior repair on 04/09/99. Endocrine Surgical History: Reports: None Musculoskeletal Surgical History: Reports: Other (See Below) Other Musculoskeletal Surgeries/Procedures:: Left arthroscopic knee surgery in the . Left TKA on 02/05/2000 with right TKA on 09/25/11. Left open knee surgery in 1975. Dermatological Surgical History: Reports: Skin Biopsy, Other (See Below) - Past Imaging History Past Imaging History: Reports: Angiography (Negative heart catheterization on 09/29/16.), Cardiac Echo (06/06/12 with ejection fraction of 55%.), CAT Scan (CT of the abdomen and pelvis on 12/25/13 and 10/22/12.), DEXA Scan (01/31/15), Mammogram ( Last mammogram on 01/07/17.), MRI (MRI of the lumbar spine on 03/03/18 and thoracic spine on 04/15/14. MRI of the Brain on 10/18/06 confirming MS.), PFT ( Last PFTs on 03/17/18.), Stress Testing (Borderline positive Lexiscan on 08/31/16. ), Ultrasound (Soft tissue ultrasound of the neck on 08/26/17.), Other (See Below ) (Multiple EMGs and nerve conduction studies last on 04/13/18. Visual evoked potential on 12/12/12.) Social & Family History - Family History HEENT: Reports: None Cardiac: Reports: Afib, AICD, Arrhythmia, Blood Clots/VTE/DVT, Bypass, CAD, High Cholesterol, Hypertension, SC, Pacemaker, Other (See Below) Other Cardiac Family History: Father with history of postoperative DVT of the leg after CABG. Father with initial SC at age 51 with three-vessel CABG. Subsequent SC, atrial fibrillation, and AICD/pacemaker placement at age 61. Patient with fatal SC/arrhythmia despite the ICD at age 70. Paternal grandmother with unknown type of fatal heart disease in her early 50s. Brother and father with hyperlipidemia. Mother with hypertension. Paternal aunt with mitral valve prolapse. Respiratory: Reports: COPD, Sleep Apnea Other Respiratory Family Hisory: Son with sleep apnea. Father with COPD with history of tobacco use. GI: Reports: Celiac Disease, Pancreatitis, Other (See Below) Other GI Family History: Mother with cholelithiasis and diverticulosis. Son with celiac disease. Sister with cholelithiasis and secondary pancreatitis. : Reports: Renal Calculus, Other (See Below) Other Family History: Brother with urolithiasis. OBGYN: Reports: None Musculoskeletal: Reports: Arthritis, Gout, Other (See Below) Other Musculoskeletal Family History: Son with gout. Neurological: Reports: Migraines, Seizure, Other (See Below) Other Neurological Family History: Son with migraine headaches. Sister with unknown type of seizure disorder. Psychiatric: Reports: Anxiety, Depression, Other (See Below) Other Psychiatric Family History: Son with anxiety depression disorder. Endocrine/Metabolic: Reports: Diabetes, type II, Hypothyroidism, IDDM, Other ( See Below) Other Endocrine/Metabolic Family History: Paternal aunt and Maternal grandfather with IDDM. Sister and mother with hypothyroidism. Hematologic: Reports: None Immunologic: Reports: None Dermatologic: Reports: None Oncologic: Reports: Lung, Skin, Other (See Below) Other Oncologic Family History: Paternal grandfather with fatal lung cancer at age 65 with history of tobacco use. Mother with squamous cell carcinoma. Father with basal cell carcinoma. Brother with melanoma. Maternal uncle with fatal pancreatic cancer in his 70s. 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.) H&P Review of Systems - Review of Systems: Review Of Systems: See Below General: Reports: No Symptoms HEENT: Reports: No Symptoms Pulmonary: Reports: No Symptoms Cardiovascular: Reports: No Symptoms Gastrointestinal: Reports: No Symptoms Genitourinary: Reports: No Symptoms Musculoskeletal: Reports: Shoulder Pain (left) Skin: Reports: Bruising Psychiatric: Reports: No Symptoms Neurological: Reports: No Symptoms Hematologic/Lymphatic: Reports: Easy Bruising Immunologic: Reports: No Symptoms Exam - Exam Exam: See Below - Vital Signs Vital Signs: Last Vital Signs Temp 98.5 F 03/06/19 15:46 Pulse 58 L 03/06/19 18:26 Resp 20 03/06/19 15:46 BP 89/49 L 03/06/19 18:26 Pulse Ox 91 L 03/06/19 15:46 Weight: 325 lb 3.2 oz - Exam Quality Assessment: DVT Prophylaxis General: Alert, Cooperative, Mild Distress HEENT: Hearing Intact, Mucosa Moist & [place] Neck: Trachea Midline Lungs: Clear to Auscultation, Normal Respiratory Effort Cardiovascular: Regular Rate, Regular Rhythm GI/Abdominal Exam: Soft, Non-Tender, Hernia (umbilical, reducible) (Female) Exam: Deferred Rectal (Female) Exam: Deferred Back Exam: Normal Inspection Extremities: Normal Inspection, Non-Tender, No Pedal Edema, Other (left shoulder immobilizer) Skin: Warm, Dry, Intact, Ecchymosis Neurological: Strength Equal Bilateral, Normal Gait Neuro Extensive - Mental Status: Alert, Normal Mood/Affect, Normal Cognition, Memory Intact Psychiatric: Alert, Normal Affect, Normal Mood *Q Meaningful Use (ADM) - VTE *Q VTE Mechanical Contraindications *Q: At Risk for Falls - Problem List (1) Orthopedic aftercare for joint replacement SNOMED Code(s): 353420077, 687373408 ICD Code: Z47.1 - AFTERCARE FOLLOWING JOINT REPLACEMENT SURGERY Status: Acute Priority: High Current Visit: No Qualifiers: Joint replacement surgery site: shoulder Laterality: left Qualified Code( s): Z47.1 - Aftercare following joint replacement surgery; Z96.612 - Presence of left artificial shoulder joint (2) Antisynthetase syndrome SNOMED Code(s): 200005733 ICD Code: D89.89 - OTH DISRD INVOLVING THE IMMUNE MECHANISM, NEC Status: Chronic Priority: Medium Current Visit: No (3) COPD (chronic obstructive pulmonary disease) SNOMED Code(s): 28034744 ICD Code: J44.9 - CHRONIC OBSTRUCTIVE PULMONARY DISEASE, UNSPECIFIED Status : Chronic Priority: Medium Current Visit: No Problem Details: No recent fever or bronchitic type symptoms. Stable by history. (4) Hypertension SNOMED Code(s): 04815335 ICD Code: I10 - ESSENTIAL (PRIMARY) HYPERTENSION Status: Chronic Priority : Medium Current Visit: No Qualifiers: (5) Hypothyroidism (acquired) SNOMED Code(s): 467902556 ICD Code: E03.9 - HYPOTHYROIDISM, UNSPECIFIED Status: Chronic Priority: High Current Visit: No Problem Details: She does follow closely with [facility]. (6) Mixed anxiety depressive disorder SNOMED Code(s): 516004458 ICD Code: F41.8 - OTHER SPECIFIED ANXIETY DISORDERS Status: Chronic Priority: Medium Current Visit: No (7) Multiple sclerosis SNOMED Code(s): 26146107 ICD Code: G35 - MULTIPLE SCLEROSIS Status: Chronic Priority: High Current Visit: No (8) Obesity (BMI 35.0-39.9 without comorbidity) SNOMED Code(s): 285348571, 019570487 ICD Code: E66.9 - OBESITY, UNSPECIFIED Status: Chronic Priority: Medium Current Visit: No (9) Osteoarthritis SNOMED Code(s): 194137774 ICD Code: M19.90 - UNSPECIFIED OSTEOARTHRITIS, UNSPECIFIED SITE Status: Chronic Priority: Medium Current Visit: No Qualifiers: Osteoarthritis location: multiple joints Osteoarthritis type: primary Qualified Code(s): M15.0 - Primary generalized (osteo)arthritis Problem List Initiated/Reviewed/Updated: Yes Orders Last 24hrs: Active Orders 24 hr Category Date Time Status Patient Status [ADT] Routine ADT 03/06/19 15:46 Active Ambulate [RC] PER UNIT ROUTINE Care 03/06/19 15:45 Active Communication Order [RC] DAILY Care 03/06/19 17:53 Active Communication Order [RC] DAILY Care 03/06/19 17:55 Active Communication Order [RC] DAILY Care 03/06/19 19:02 Active Communication Order [RC] QID Care 03/06/19 18:59 Active May Shower [RC] ASDIRECTED Care 03/06/19 15:45 Active Oxygen Therapy [RC] PRN Care 03/06/19 15:46 Active VTE/DVT Education [RC] PER UNIT ROUTINE Care 03/06/19 15:46 Active Vital Signs [RC] DAILY Care 03/06/19 15:46 Active Consult to Case Management/Oyster Picker [CONS] Cons 03/06/19 15:45 Active Routine OT Evaluation and Treatment [CONS] Routine Cons 03/06/19 15:45 Active PT Evaluation and Treatment [CONS] Routine Cons 03/06/19 15:45 Active Regular Diet [DIET] Diet 03/06/19 Dinner Active ALPRAZolam [Xanax] Med 03/06/19 20:00 Active 0.25 mg PO BEDTIME Acetaminophen [Tylenol] Med 03/06/19 16:00 Active 650 mg PO Q6H Albuterol [Ventolin HFA] Med 03/06/19 16:00 Active 0 gm INH Q4H PRN Aspirin [Ecotrin] Med 03/07/19 08:00 Active 325 mg PO DAILY Baclofen [Lioresal] Med 03/06/19 18:00 Active 10 mg PO TID Bisacodyl [Dulcolax] Med 03/06/19 15:52 Active 5 mg PO BID PRN Calcium Citrate [Calcium Citrate] Med 03/07/19 08:00 Active 2 tab PO DAILY Celecoxib [Celecoxib] Med 03/07/19 08:00 Active 200 mg PO DAILY Cholecalciferol (Vitamin D3) [Vitamin D3] Med 03/07/19 08:00 Active 125 mcg PO DAILY Cyanocobalamin (Vitamin B12) [Vitamin B12] Med 03/07/19 08:00 Active 1,000 mcg PO DAILY Docusate Sodium/Sennosides [Senna Plus] Med 03/06/19 18:00 Active 1 tab PO BID Fluticasone/Vilanterol [Breo Ellipta 100-25 MCG Med 03/06/19 20:00 Pending Inhalation Kit] 1 puff IH BEDTIME Folic Acid Med 03/07/19 08:00 Active 1 mg PO DAILY Makenna Root [Makenna Root] Med 03/07/19 08:00 Stop Req 1 cap PO DAILY Interferon Beta-1a w/Albumin [Rebif] Med 03/07/19 21:00 Active 44 mcg SUBCUT MOWEFR@2100 Ketoconazole [Nizoral 2% Crm] Med 03/07/19 08:00 Active 0 gm TOP DAILY Lactobacillus Rhamnosus GG [Culturelle] Med 03/07/19 08:00 Active 3 cap PO DAILY Levothyroxine Med 03/07/19 08:00 Active 150 mcg PO DAILY Liothyronine [Cytomel] Med 03/07/19 08:00 Active 5 mcg PO DAILY Melatonin [Melatonin] Med 03/06/19 20:00 Active 1 tab PO BEDTIME Metoprolol Tartrate [Lopressor] Med 03/06/19 18:00 Active 25 mg PO BID Multivitamin with Minerals [Hair, Skin and Nails] Med 03/07/19 08:00 Stop Req 1 tab PO DAILY Multivitamins [Tab-A-Renate] Med 03/07/19 08:00 Active 1 tab PO DAILY Non-Formulary Medication [NF Drug] Med 03/07/19 08:00 Active 12.5 each PO DAILY Nystatin [Nystop] Med 03/06/19 18:00 Stop Req DOSE gm TOP BID [place]-3/DHA/Epa/Fish Oil [Fish Oil 1,400 MG Softgel] Med 03/07/19 08:00 Active 1 cap PO DAILY Oxybutynin [Oxybutynin ER] Med 03/07/19 08:00 Active 5 mg PO DAILY Phentermine HCl [Phentermine HCl] Med 03/07/19 08:00 Active 37.5 mg PO DAILY Polyethylene Glycol 3350 [MiraLAX] Med 03/06/19 15:52 Active 17 gm PO DAILY PRN Potassium Chloride [Klor-Con 10] Med 03/06/19 18:00 Active 20 meq PO BID Pregabalin [Lyrica] Med 03/06/19 20:00 Active 150 mg PO BEDTIME Pregabalin [Lyrica] Med 03/07/19 08:00 Active 75 mg PO DAILY Sertraline [Zoloft] Med 03/07/19 08:00 Active 100 mg PO DAILY azaTHIOprine [Imuran] Med 03/06/19 18:00 Active 50 mg PO BID oxyCODONE Med 03/06/19 15:52 Active 5 - 10 mg PO Q6H PRN predniSONE Med 03/07/19 12:00 Active 5 mg PO DAILY@1200 sulfaSALAzine Med 03/06/19 15:52 Pending 500 mg PO DAILY PRN traMADol [Ultram] Med 03/06/19 22:00 Active 50 mg PO Q6HR Resuscitation Status Routine Resus Stat 03/06/19 15:45 Ordered Medication Orders Acetaminophen (Tylenol) 650 mg PO Q6H [facility] Last Admin: 03/06/19 21:19 Dose: 650 mg Admin: 03/06/19 18:14 Dose: 650 mg Albuterol (Ventolin Hfa) 0 gm INH Q4H PRN PRN Reason: sob Alprazolam (Xanax) 0.25 mg PO BEDTIME [facility] Last Admin: 03/06/19 20:28 Dose: 0.25 mg Aspirin (Ecotrin) 325 mg PO DAILY [facility] Stop: 03/31/19 08:01 Azathioprine (Imuran) 50 mg PO BID [facility] Last Admin: 03/06/19 18:15 Dose: 50 mg Baclofen (Lioresal) 10 mg PO TID [facility] Last Admin: 03/06/19 18:16 Dose: 10 mg Bisacodyl (Dulcolax) 5 mg PO BID PRN PRN Reason: Constipation Cholecalciferol (Vitamin D3) 125 mcg PO DAILY [facility] Cyanocobalamin (Vitamin B12) 1,000 mcg PO DAILY [facility] Folic Acid (Folic Acid) 1 mg PO DAILY [facility] Ketoconazole (Nizoral 2% Crm) 0 gm TOP DAILY [facility] Lactobacillus Rhamnosus (Culturelle) 3 cap PO DAILY [facility] Levothyroxine Sodium (Levothyroxine) 150 mcg PO DAILY [facility] Metoprolol Tartrate (Lopressor) 25 mg PO BID [facility] Last Admin: 03/06/19 18:23 Dose: Multivitamins/Minerals/Vitamin C (Tab-A-Renate) 1 tab PO DAILY [facility] Calcium Citrate [ Calcium Citrate] 600mg 2 tab PO DAILY [facility] Celecoxib [Celecoxib (] 200 Mg Caps) 200 mg PO DAILY [facility] Stop: 03/12/19 08:01 Non-Formulary Medication (Fluticasone/Vilanterol [Breo Ellipta 100-25 Mcg Inhalation Kit]) 1 puff IH BEDTIME [facility] Hydrochlorothiazide (12.5mg Tablets) 12.5 each PO DAILY [facility] (Interferon Beta-1a W/Albumin [Rebif] 44 Mcg) 44 mcg SUBCUT MOWEFR@2100 [facility] Liothyronine [ Cytomel] 5 Mcg Tablets 5 mcg PO DAILY [facility] Melatonin [Melatonin (] 1 Mg Tablets) 1 tab PO BEDTIME [facility] Last Admin: 03/06/19 20:28 Dose: 1 tab ([place]-3/Dha/Epa/Fish Oil [Fish Oil 1 ,400 Mg Softgel] 1 Ca 1 cap PO DAILY [facility] (Phentermine Hcl [ Phentermine Hcl] 37. 5 Mg) 37.5 mg PO DAILY [facility] (Sertraline [Zoloft] (100 Mg Tablets) 100 mg PO DAILY [facility] Oxybutynin Chloride (Oxybutynin Er) 5 mg PO DAILY [facility] Oxycodone HCl (Oxycodone) 5 - 10 mg PO Q6H PRN PRN Reason: Pain Polyethylene Glycol (Miralax) 17 gm PO DAILY PRN PRN Reason: Constipation Potassium Chloride (Klor-Con 10) 20 meq PO BID [facility] Last Admin: 03/06/19 18:16 Dose: 20 meq Prednisone (Prednisone) 5 mg PO DAILY@1200 [facility] Pregabalin (Lyrica) 75 mg PO DAILY [facility] Pregabalin (Lyrica) 150 mg PO BEDTIME [facility] Last Admin: 03/06/19 20:27 Dose: 150 mg Senna/Docusate Sodium (Senna Plus) 1 tab PO BID [facility] Last Admin: 03/06/19 18:19 Dose: 1 tab Sulfasalazine (Sulfasalazine) 500 mg PO DAILY PRN PRN Reason: Abdominal Pain Tramadol HCl (Ultram) 50 mg PO Q6HR [facility] Stop: 03/11/19 16:01 Last Admin: 03/06/19 21:19 Dose: 50 mg Assessment/Plan Comment:: 03/06/19 Arsen Oropeza MD Recent left shoulder ORIF (replacement) now here for swing bed for PT-OT. - Mortality Measure Prognosis:: Good
[2019-03-07] MEDS: traMADol 50 MG Tab PO SCH ×4 (04:05→21:32)
[2019-03-07] MEDS: Acetaminophen 325 MG Tab PO SCH ×4 (04:05→21:31)
[2019-03-07] MEDS ORDERED: [UNRECOGNIZED DRUG - OTHER] PO SCH (08:00)
[2019-03-07] MEDS ORDERED: GINGER ROOT PO SCH (08:00)
[2019-03-07] MEDS ORDERED: Non-Formulary Medication 1 Each (Cinnamon Bark [Cinnamon] 500 MG) PO SCH (08:00)
[2019-03-07] MEDS ORDERED: GARLIC PO SCH (08:00)
[2019-03-07] MEDS ORDERED: MULTIVITAMIN WITH MINERALS PO SCH (08:00)
[2019-03-07] MEDS: DHA PO SCH (08:17)
[2019-03-07] MEDS: OMEGA PO SCH (08:17)
[2019-03-07] MEDS: EPA PO SCH (08:17)
[2019-03-07] MEDS: FISH OIL PO SCH (08:17)
[2019-03-07] MEDS: HYDROCHLOROTHIAZIDE 12.5 MG PO SCH (08:17)
[2019-03-07] MEDS: CELECOXIB 200 MG PO SCH (08:18)
[2019-03-07] MEDS: Folic Acid 1 MG Tab PO SCH (08:18)
[2019-03-07] MEDS: CALCIUM CITRATE 600 MG PO SCH (08:18)
[2019-03-07] MEDS: Oxybutynin 5 MG Tab.ER PO SCH (08:19)
[2019-03-07] MEDS: Cyanocobalamin (Vitamin B12) 1,000 MCG Tab PO SCH (08:20)
[2019-03-07] MEDS: Multivitamin Tab PO SCH (08:20)
[2019-03-07] MEDS: SERTRALINE 100 MG PO SCH (08:21)
[2019-03-07] MEDS: Ketoconazole 2% Crm 30 GM Tube TOP SCH (08:21)
[2019-03-07] MEDS: Potassium Chloride 10 MEQ Tab.ER PO SCH ×2 (08:22→17:17)
[2019-03-07] MEDS: Baclofen 10 MG Tab PO SCH ×3 (08:23→17:18)
[2019-03-07] MEDS: LIOTHYRONINE 5 MCG PO SCH (08:23)
[2019-03-07] MEDS: Levothyroxine 150 MCG Tab PO SCH (08:24)
[2019-03-07] MEDS: (Phentermine Hcl [Phentermine Hcl] 37.5 MG) PO SCH (08:25)
[2019-03-07] MEDS: Cholecalciferol (Vitamin D3) 25 MCG Tab PO SCH (08:33)
[2019-03-07] MEDS: Metoprolol Tartrate 25 MG Tab PO SCH ×2 (08:35→17:18)
[2019-03-07] MEDS: Lactobacillus Rhamnosus GG (Probiotic) Cap PO SCH (08:41)
[2019-03-07] MEDS: Aspirin 325 MG Tab.EC PO SCH (08:41)
[2019-03-07] MEDS ORDERED: FLU Vacc QS2019-20(6MOS+)/PF 60 MCG/0.5 ML SYRINGE IM ONE (10:00)
[2019-03-07] MEDS: predniSONE 5 MG Tab PO SCH (11:19)
[2019-03-07] MEDS: Pregabalin 75 MG Cap PO SCH ×2 (11:55→20:06)
[2019-03-07] MEDS: ALPRAZolam 0.25 MG Tab PO SCH (20:07)
[2019-03-07] MEDS: MELATONIN 1 MG PO SCH (20:08)
[2019-03-07] MEDS: [UNRECOGNIZED DRUG - OTHER] SUBCUT SCH (20:09)
[2019-03-08] MEDS: Acetaminophen 325 MG Tab PO SCH ×4 (04:56→22:51)
[2019-03-08] MEDS: traMADol 50 MG Tab PO SCH ×4 (04:56→22:51)
[2019-03-08] MEDS: Lactobacillus Rhamnosus GG (Probiotic) Cap PO SCH (07:54)
[2019-03-08] MEDS: CALCIUM CITRATE 600 MG PO SCH (07:55)
[2019-03-08] MEDS: CELECOXIB 200 MG PO SCH (07:55)
[2019-03-08] MEDS: Aspirin 325 MG Tab.EC PO SCH (07:56)
[2019-03-08] MEDS: Folic Acid 1 MG Tab PO SCH (07:56)
[2019-03-08] MEDS: Potassium Chloride 10 MEQ Tab.ER PO SCH ×2 (07:57→17:34)
[2019-03-08] MEDS: Baclofen 10 MG Tab PO SCH ×3 (07:58→17:35)
[2019-03-08] MEDS: Levothyroxine 150 MCG Tab PO SCH (07:58)
[2019-03-08] MEDS: Metoprolol Tartrate 25 MG Tab PO SCH ×2 (07:59→17:35)
[2019-03-08] MEDS: LIOTHYRONINE 5 MCG PO SCH (07:59)
[2019-03-08] MEDS: HYDROCHLOROTHIAZIDE 12.5 MG PO SCH (08:02)
[2019-03-08] MEDS: Pregabalin 75 MG Cap PO SCH ×2 (08:02→19:38)
[2019-03-08] MEDS: EPA PO SCH (08:04)
[2019-03-08] MEDS: DHA PO SCH (08:04)
[2019-03-08] MEDS: OMEGA PO SCH (08:04)
[2019-03-08] MEDS: SERTRALINE 100 MG PO SCH (08:04)
[2019-03-08] MEDS: FISH OIL PO SCH (08:04)
[2019-03-08] MEDS: Multivitamin Tab PO SCH (08:05)
[2019-03-08] MEDS: Cyanocobalamin (Vitamin B12) 1,000 MCG Tab PO SCH (08:05)
[2019-03-08] MEDS: Cholecalciferol (Vitamin D3) 25 MCG Tab PO SCH (08:05)
[2019-03-08] MEDS: (Phentermine Hcl [Phentermine Hcl] 37.5 MG) PO SCH (08:06)
[2019-03-08] MEDS: Ketoconazole 2% Crm 30 GM Tube TOP SCH (08:07)
[2019-03-08] MEDS: Oxybutynin 5 MG Tab.ER PO SCH ×2 (08:55→19:51)
[2019-03-08] MEDS: predniSONE 5 MG Tab PO SCH (11:18)
[2019-03-08] MEDS: MELATONIN 1 MG PO SCH (19:39)
[2019-03-08] MEDS: ALPRAZolam 0.25 MG Tab PO SCH (19:45)
[2019-03-08] MEDS: oxyCODONE 5 MG Tab PO PRN (19:50)
[2019-03-09] MEDS: Acetaminophen 325 MG Tab PO SCH ×4 (03:12→21:11)
[2019-03-09] MEDS: traMADol 50 MG Tab PO SCH ×4 (03:15→21:09)
[2019-03-09] MEDS: CALCIUM CITRATE 600 MG PO SCH (08:27)
[2019-03-09] MEDS: CELECOXIB 200 MG PO SCH (08:29)
[2019-03-09] MEDS: Lactobacillus Rhamnosus GG (Probiotic) Cap PO SCH (08:30)
[2019-03-09] MEDS: Aspirin 325 MG Tab.EC PO SCH (08:33)
[2019-03-09] MEDS: Folic Acid 1 MG Tab PO SCH (08:33)
[2019-03-09] MEDS: Potassium Chloride 10 MEQ Tab.ER PO SCH ×2 (08:36→17:26)
[2019-03-09] MEDS: LIOTHYRONINE 5 MCG PO SCH (08:41)
[2019-03-09] MEDS: Metoprolol Tartrate 25 MG Tab PO SCH ×2 (08:42→17:28)
[2019-03-09] MEDS: Pregabalin 75 MG Cap PO SCH ×2 (08:44→19:19)
[2019-03-09] MEDS: HYDROCHLOROTHIAZIDE 12.5 MG PO SCH (08:45)
[2019-03-09] MEDS: Ketoconazole 2% Crm 30 GM Tube TOP SCH (08:47)
[2019-03-09] MEDS: EPA PO SCH (08:48)
[2019-03-09] MEDS: OMEGA PO SCH (08:48)
[2019-03-09] MEDS: DHA PO SCH (08:48)
[2019-03-09] MEDS: FISH OIL PO SCH (08:48)
[2019-03-09] MEDS: (Phentermine Hcl [Phentermine Hcl] 37.5 MG) PO SCH (08:49)
[2019-03-09] MEDS: SERTRALINE 100 MG PO SCH (08:50)
[2019-03-09] MEDS: Multivitamin Tab PO SCH (08:51)
[2019-03-09] MEDS: Cyanocobalamin (Vitamin B12) 1,000 MCG Tab PO SCH (08:52)
[2019-03-09] MEDS: Cholecalciferol (Vitamin D3) 25 MCG Tab PO SCH (08:52)
[2019-03-09] MEDS: Levothyroxine 150 MCG Tab PO SCH (08:54)
[2019-03-09] MEDS: Baclofen 10 MG Tab PO SCH ×3 (08:56→17:28)
[2019-03-09] MEDS: predniSONE 5 MG Tab PO SCH (11:33)
[2019-03-09] MEDS: MELATONIN 1 MG PO SCH (19:20)
[2019-03-09] MEDS: Oxybutynin 5 MG Tab.ER PO SCH (19:20)
[2019-03-09] MEDS: ALPRAZolam 0.25 MG Tab PO SCH (19:22)
[2019-03-09] MEDS: [UNRECOGNIZED DRUG - OTHER] SUBCUT SCH (21:11)
[2019-03-10] MEDS: traMADol 50 MG Tab PO SCH ×4 (03:55→21:31)
[2019-03-10] MEDS: Acetaminophen 325 MG Tab PO SCH ×3 (03:56→15:19)
[2019-03-10] MEDS: CALCIUM CITRATE 600 MG PO SCH (07:40)
[2019-03-10] MEDS: Lactobacillus Rhamnosus GG (Probiotic) Cap PO SCH (07:41)
[2019-03-10] MEDS: CELECOXIB 200 MG PO SCH (07:41)
[2019-03-10] MEDS: Aspirin 325 MG Tab.EC PO SCH (07:42)
[2019-03-10] MEDS: Folic Acid 1 MG Tab PO SCH (07:42)
[2019-03-10] MEDS: Potassium Chloride 10 MEQ Tab.ER PO SCH ×2 (07:43→17:18)
[2019-03-10] MEDS: Levothyroxine 150 MCG Tab PO SCH (07:43)
[2019-03-10] MEDS: LIOTHYRONINE 5 MCG PO SCH (07:44)
[2019-03-10] MEDS: Baclofen 10 MG Tab PO SCH ×3 (07:44→17:18)
[2019-03-10] MEDS: Metoprolol Tartrate 25 MG Tab PO SCH ×2 (07:44→17:18)
[2019-03-10] MEDS: HYDROCHLOROTHIAZIDE 12.5 MG PO SCH (07:45)
[2019-03-10] MEDS: Ketoconazole 2% Crm 30 GM Tube TOP SCH (07:45)
[2019-03-10] MEDS: DHA PO SCH (07:46)
[2019-03-10] MEDS: EPA PO SCH (07:46)
[2019-03-10] MEDS: FISH OIL PO SCH (07:46)
[2019-03-10] MEDS: SERTRALINE 100 MG PO SCH (07:46)
[2019-03-10] MEDS: OMEGA PO SCH (07:46)
[2019-03-10] MEDS: Multivitamin Tab PO SCH (07:47)
[2019-03-10] MEDS: Cholecalciferol (Vitamin D3) 25 MCG Tab PO SCH (07:47)
[2019-03-10] MEDS: Cyanocobalamin (Vitamin B12) 1,000 MCG Tab PO SCH (07:47)
[2019-03-10] MEDS: Pregabalin 75 MG Cap PO SCH ×2 (07:49→19:33)
[2019-03-10] MEDS: (Phentermine Hcl [Phentermine Hcl] 37.5 MG) PO SCH (07:49)
[2019-03-10] MEDS: predniSONE 5 MG Tab PO SCH (11:14)
[2019-03-10] MEDS: ALPRAZolam 0.25 MG Tab PO SCH (19:30)
[2019-03-10] MEDS: Oxybutynin 5 MG Tab.ER PO SCH (19:31)
[2019-03-10] MEDS: MELATONIN 1 MG PO SCH (19:32)
[2019-03-11] MEDS: traMADol 50 MG Tab PO SCH ×3 (04:51→16:44)
[2019-03-11] MEDS: CALCIUM CITRATE 600 MG PO SCH (08:02)
[2019-03-11] MEDS: Lactobacillus Rhamnosus GG (Probiotic) Cap PO SCH (08:03)
[2019-03-11] MEDS: Folic Acid 1 MG Tab PO SCH (08:04)
[2019-03-11] MEDS: Potassium Chloride 10 MEQ Tab.ER PO SCH ×2 (08:04→17:00)
[2019-03-11] MEDS: Aspirin 325 MG Tab.EC PO SCH (08:04)
[2019-03-11] MEDS: Baclofen 10 MG Tab PO SCH ×3 (08:05→17:00)
[2019-03-11] MEDS: LIOTHYRONINE 5 MCG PO SCH (08:05)
[2019-03-11] MEDS: Levothyroxine 150 MCG Tab PO SCH (08:05)
[2019-03-11] MEDS: Metoprolol Tartrate 25 MG Tab PO SCH ×2 (08:06→17:00)
[2019-03-11] MEDS: OMEGA PO SCH (08:09)
[2019-03-11] MEDS: Ketoconazole 2% Crm 30 GM Tube TOP SCH (08:09)
[2019-03-11] MEDS: HYDROCHLOROTHIAZIDE 12.5 MG PO SCH (08:09)
[2019-03-11] MEDS: FISH OIL PO SCH (08:09)
[2019-03-11] MEDS: EPA PO SCH (08:09)
[2019-03-11] MEDS: DHA PO SCH (08:09)
[2019-03-11] MEDS: Cyanocobalamin (Vitamin B12) 1,000 MCG Tab PO SCH (08:10)
[2019-03-11] MEDS: Multivitamin Tab PO SCH (08:10)
[2019-03-11] MEDS: SERTRALINE 100 MG PO SCH (08:10)
[2019-03-11] MEDS: Cholecalciferol (Vitamin D3) 25 MCG Tab PO SCH (08:11)
[2019-03-11] MEDS: Pregabalin 75 MG Cap PO SCH ×2 (08:12→20:19)
[2019-03-11] MEDS: (Phentermine Hcl [Phentermine Hcl] 37.5 MG) PO SCH (08:12)
[2019-03-11] MEDS: CELECOXIB 200 MG PO SCH (08:13)
[2019-03-11] MEDS: predniSONE 5 MG Tab PO SCH (11:18)
[2019-03-11] MEDS: MELATONIN 1 MG PO SCH (20:20)
[2019-03-11] MEDS: Oxybutynin 5 MG Tab.ER PO SCH (20:20)
[2019-03-11] MEDS: ALPRAZolam 0.25 MG Tab PO SCH (20:21)
[2019-03-11] MEDS: oxyCODONE 5 MG Tab PO PRN (20:24)
[2019-03-12] MEDS: CALCIUM CITRATE 600 MG PO SCH (07:47)
[2019-03-12] MEDS: Lactobacillus Rhamnosus GG (Probiotic) Cap PO SCH (07:48)
[2019-03-12] MEDS: CELECOXIB 200 MG PO SCH (07:48)
[2019-03-12] MEDS: Folic Acid 1 MG Tab PO SCH (07:49)
[2019-03-12] MEDS: Aspirin 325 MG Tab.EC PO SCH (07:49)
[2019-03-12] MEDS: Potassium Chloride 10 MEQ Tab.ER PO SCH ×2 (07:50→17:15)
[2019-03-12] MEDS: Levothyroxine 150 MCG Tab PO SCH (07:50)
[2019-03-12] MEDS: LIOTHYRONINE 5 MCG PO SCH (07:51)
[2019-03-12] MEDS: Baclofen 10 MG Tab PO SCH ×3 (07:51→17:15)
[2019-03-12] MEDS: Metoprolol Tartrate 25 MG Tab PO SCH ×2 (07:51→17:16)
[2019-03-12] MEDS: Pregabalin 75 MG Cap PO SCH ×2 (07:52→20:13)
[2019-03-12] MEDS: (Phentermine Hcl [Phentermine Hcl] 37.5 MG) PO SCH (07:52)
[2019-03-12] MEDS: Ketoconazole 2% Crm 30 GM Tube TOP SCH (07:53)
[2019-03-12] MEDS: HYDROCHLOROTHIAZIDE 12.5 MG PO SCH (07:53)
[2019-03-12] MEDS: EPA PO SCH (07:54)
[2019-03-12] MEDS: FISH OIL PO SCH (07:54)
[2019-03-12] MEDS: OMEGA PO SCH (07:54)
[2019-03-12] MEDS: SERTRALINE 100 MG PO SCH (07:54)
[2019-03-12] MEDS: DHA PO SCH (07:54)
[2019-03-12] MEDS: Multivitamin Tab PO SCH (07:55)
[2019-03-12] MEDS: Cyanocobalamin (Vitamin B12) 1,000 MCG Tab PO SCH (07:55)
[2019-03-12] MEDS: Cholecalciferol (Vitamin D3) 25 MCG Tab PO SCH (07:55)
[2019-03-12] MEDS: predniSONE 5 MG Tab PO SCH (11:29)
[2019-03-12] MEDS: MELATONIN 1 MG PO SCH (20:12)
[2019-03-12] MEDS: ALPRAZolam 0.25 MG Tab PO SCH (20:14)
[2019-03-12] MEDS: Oxybutynin 5 MG Tab.ER PO SCH (20:15)
[2019-03-12] MEDS: [UNRECOGNIZED DRUG - OTHER] SUBCUT SCH (20:20)
[2019-03-12] MEDS ORDERED: traMADol 50 MG Tab PO PRN (23:25)
[2019-03-13] MEDS: CALCIUM CITRATE 600 MG PO SCH (07:46)
[2019-03-13] MEDS: Lactobacillus Rhamnosus GG (Probiotic) Cap PO SCH (07:47)
[2019-03-13] MEDS: Aspirin 325 MG Tab.EC PO SCH (07:48)
[2019-03-13] MEDS: Folic Acid 1 MG Tab PO SCH (07:48)
[2019-03-13] MEDS: Potassium Chloride 10 MEQ Tab.ER PO SCH (07:49)
[2019-03-13] MEDS: Levothyroxine 150 MCG Tab PO SCH (07:49)
[2019-03-13] MEDS: LIOTHYRONINE 5 MCG PO SCH (07:50)
[2019-03-13] MEDS: Baclofen 10 MG Tab PO SCH ×2 (07:50→11:38)
[2019-03-13] MEDS: Metoprolol Tartrate 25 MG Tab PO SCH (07:50)
[2019-03-13] MEDS: Pregabalin 75 MG Cap PO SCH (07:51)
[2019-03-13] MEDS: (Phentermine Hcl [Phentermine Hcl] 37.5 MG) PO SCH (07:51)
[2019-03-13] MEDS: HYDROCHLOROTHIAZIDE 12.5 MG PO SCH (07:52)
[2019-03-13] MEDS: Ketoconazole 2% Crm 30 GM Tube TOP SCH (07:52)
[2019-03-13] MEDS: FISH OIL PO SCH (07:53)
[2019-03-13] MEDS: DHA PO SCH (07:53)
[2019-03-13] MEDS: OMEGA PO SCH (07:53)
[2019-03-13] MEDS: SERTRALINE 100 MG PO SCH (07:53)
[2019-03-13] MEDS: EPA PO SCH (07:53)
[2019-03-13] MEDS: Cholecalciferol (Vitamin D3) 25 MCG Tab PO SCH (07:54)
[2019-03-13] MEDS: Multivitamin Tab PO SCH (07:54)
[2019-03-13] MEDS: Cyanocobalamin (Vitamin B12) 1,000 MCG Tab PO SCH (07:54)
[2019-03-13 07:56] VITALS: BP 127/66; PULSE 86
[2019-03-13] MEDS ORDERED: Celecoxib 100 MG Cap PO SCH (08:00)
[2019-03-13] MEDS: predniSONE 5 MG Tab PO SCH (11:39)
--- NOTE | 2019-03-13 11:47 | PCM.PN ---
- General Info Date of Service: 03/13/19 Admission Dx/Problem (Free Text): Admission Diagnosis/Problem Admission Diagnosis/Problem Left shoulder pain Functional Status: Reports: Pain Controlled, Tolerating Diet, Ambulating, Urinating - Review of Systems General: Reports: No Symptoms HEENT: Reports: No Symptoms Pulmonary: Reports: No Symptoms Cardiovascular: Reports: No Symptoms Gastrointestinal: Reports: No Symptoms Genitourinary: Reports: No Symptoms Musculoskeletal: Reports: Shoulder Pain (left) Skin: Reports: No Symptoms Neurological: Reports: Pre-Existing Deficit (MS) Psychiatric: Reports: No Symptoms - Patient Data Vitals - Most Recent: Last Vital Signs Temp 98.9 F 03/13/19 08:00 Pulse 86 03/13/19 08:00 Resp 18 03/13/19 08:00 BP 127/66 03/13/19 08:00 Pulse Ox 91 L 03/13/19 08:00 Weight - Most Recent: 325 lb 3.2 oz I&O - Last 24 Hours: Intake & Output 03/12/19 03/13/19 03/13/19 22:59 06:59 14:59 Intake Total 320 320 Balance 320 320 Med Orders - Current: Current Medications Albuterol (Ventolin Hfa) 0 gm INH Q4H PRN PRN Reason: sob Alprazolam (Xanax) 0.25 mg PO BEDTIME [facility] Last Admin: 03/12/19 20:14 Dose: 0.25 mg Aspirin (Ecotrin) 325 mg PO DAILY [facility] Stop: 03/31/19 08:01 Last Admin: 03/13/19 07:48 Dose: 325 mg Azathioprine (Imuran) 50 mg PO BID [facility] Last Admin: 03/13/19 07:49 Dose: 50 mg Baclofen (Lioresal) 10 mg PO TID [facility] Last Admin: 03/13/19 11:38 Dose: 10 mg Bisacodyl (Dulcolax) 5 mg PO BID PRN PRN Reason: Constipation Celecoxib (Celebrex) 400 mg PO DAILY [facility] Last Admin: 03/13/19 09:49 Dose: Not Given Cholecalciferol (Vitamin D3) 125 mcg PO DAILY [facility] Last Admin: 03/13/19 07:54 Dose: 125 mcg Cyanocobalamin (Vitamin B12) 1,000 mcg PO DAILY [facility] Last Admin: 03/13/19 07:54 Dose: 1,000 mcg Folic Acid (Folic Acid) 1 mg PO DAILY [facility] Last Admin: 03/13/19 07:48 Dose: 1 mg Ketoconazole (Nizoral 2% Crm) 0 gm TOP DAILY [facility] Last Admin: 03/13/19 07:52 Dose: 1 applic Lactobacillus Rhamnosus (Culturelle) 3 cap PO DAILY [facility] Last Admin: 03/13/19 07:47 Dose: 3 cap Levothyroxine Sodium (Levothyroxine) 150 mcg PO DAILY [facility] Last Admin: 03/13/19 07:49 Dose: 150 mcg Metoprolol Tartrate (Lopressor) 25 mg PO BID [facility] Last Admin: 03/13/19 07:50 Dose: 25 mg Multivitamins/Minerals/Vitamin C (Tab-A-Renate) 1 tab PO DAILY [facility] Last Admin: 03/13/19 07:54 Dose: 1 tab Calcium Citrate [ Calcium Citrate] 600mg 2 tab PO DAILY [facility] Last Admin: 03/13/19 07:46 Dose: 2 tab Fluticasone/Vilanterol [Breo Ellipta 100-25 Mcg Inhalatio 1 puff IH BEDTIME [facility] Last Admin: 03/12/19 20:11 Dose: 1 puff Hydrochlorothiazide (12.5mg Tablets) 12.5 each PO DAILY [facility] Last Admin: 03/13/19 07:52 Dose: 12.5 each (Interferon Beta-1a W/Albumin [Rebif] 44 Mcg) 44 mcg SUBCUT MOWEFR@2100 [facility] Last Admin: 03/12/19 20:20 Dose: 44 mcg Liothyronine [ Cytomel] 5 Mcg Tablets 5 mcg PO DAILY [facility] Last Admin: 03/13/19 07:50 Dose: 5 mcg Melatonin [Melatonin (] 1 Mg Tablets) 1 tab PO BEDTIME [facility] Last Admin: 03/12/19 20:12 Dose: 1 tab ([place]-3/Dha/Epa/Fish Oil [Fish Oil 1 ,400 Mg Softgel] 1 Ca 1 cap PO DAILY [facility] Last Admin: 03/13/19 07:53 Dose: 1 cap (Phentermine Hcl [ Phentermine Hcl] 37. 5 Mg) 37.5 mg PO DAILY [facility] Last Admin: 03/13/19 07:51 Dose: 37.5 mg (Sertraline [Zoloft] (100 Mg Tablets) 100 mg PO DAILY [facility] Last Admin: 03/13/19 07:53 Dose: 100 mg Oxybutynin Chloride (Oxybutynin Er) 5 mg PO BEDTIME [facility] Last Admin: 03/12/19 20:15 Dose: 5 mg Oxycodone HCl (Oxycodone) 5 - 10 mg PO Q6H PRN PRN Reason: Pain Last Admin: 03/11/19 20:24 Dose: 5 mg Polyethylene Glycol (Miralax) 17 gm PO DAILY PRN PRN Reason: Constipation Potassium Chloride (Klor-Con 10) 20 meq PO BID [facility] Last Admin: 03/13/19 07:49 Dose: 20 meq Prednisone (Prednisone) 5 mg PO DAILY@1200 [facility] Last Admin: 03/13/19 11:39 Dose: 5 mg Pregabalin (Lyrica) 75 mg PO DAILY [facility] Last Admin: 03/13/19 07:51 Dose: 75 mg Pregabalin (Lyrica) 150 mg PO BEDTIME [facility] Last Admin: 03/12/19 20:13 Dose: 150 mg Senna/Docusate Sodium (Senna Plus) 1 tab PO BID [facility] Last Admin: 03/13/19 07:53 Dose: 1 tab Tramadol HCl (Ultram) 50 mg PO Q6H PRN PRN Reason: Pain Discontinued Medications Acetaminophen (Tylenol) 650 mg PO Q6H [facility] Stop: 03/10/19 16:01 Last Admin: 03/10/19 15:19 Dose: 650 mg Aspirin (Aspirin) 81 mg PO DAILY [facility] Influenza Virus Vaccine (Fluzone Quad [id number] Syringe) 60 mcg IM .ONCE ONE Stop: 03/07/19 10:01 Last Admin: 03/07/19 10:25 Dose: 60 mcg Non-Formulary Medication (Betamethasone Dipropionate [Betamethasone Dipropionate ]) 1 applic TOP DAILY PRN PRN Reason: Rash Non-Formulary Medication (Black Cohosh [Black Cohosh]) 1 tab PO BEDTIME [facility] Last Admin: 03/06/19 23:09 Dose: Not Given Celecoxib [Celecoxib (] 200 Mg Caps) 200 mg PO DAILY [facility] Stop: 03/12/19 08:01 Last Admin: 03/12/19 07:48 Dose: 200 mg Non-Formulary Medication (Cinnamon Bark [Cinnamon]) 500 mg PO DAILY [facility] Non-Formulary Medication (Garlic [Garlic]) 1 cap PO DAILY [facility] Non-Formulary Medication (Makenna Root [Makenna Root]) 1 cap PO DAILY [facility] Non-Formulary Medication (Multivitamin With Minerals [Hair, Skin And Nails]) 1 tab PO DAILY [facility] Nystatin (Nystop) gm TOP BID [facility] Oxybutynin Chloride (Oxybutynin Er) 5 mg PO DAILY [facility] Last Admin: 03/08/19 08:55 Dose: Not Given Sulfasalazine (Sulfasalazine) 500 mg PO DAILY PRN PRN Reason: Abdominal Pain Tramadol HCl (Ultram) 50 mg PO Q6HR [facility] Stop: 03/11/19 16:01 Last Admin: 03/11/19 16:44 Dose: 50 mg - Exam Quality Assessment: DVT Prophylaxis General: Alert, Cooperative, No Acute Distress HEENT: Pupils Equal, Pupils Reactive, Mucous Membr. Moist/[facility] Neck: Trachea Midline, No JVD Lungs: Clear to Auscultation, Normal Respiratory Effort Cardiovascular: Regular Rate, Regular Rhythm GI/Abdominal Exam: Normal Bowel Sounds, Soft, Non-Tender, No Distention (Female) Exam: Deferred Back Exam: Normal Inspection Extremities: Non-Tender, Pedal Edema (minimal), Arm Pain (left shoulder), Limited Range of Motion (left shoulder) Skin: Warm, Dry, Intact Wound/Incisions: Healing Well, No Drainage Neurological: No New Focal Deficit Psy/Mental Status: Alert, Normal Affect, Normal Mood - Problem List & Annotations (1) Orthopedic aftercare for joint replacement SNOMED Code(s): 794751643, 649072641 Code(s): Z47.1 - AFTERCARE FOLLOWING JOINT REPLACEMENT SURGERY Status: Acute Priority: High Current Visit: No Qualifiers: Joint replacement surgery site: shoulder Laterality: left Qualified Code( s): Z47.1 - Aftercare following joint replacement surgery; Z96.612 - Presence of left artificial shoulder joint (2) Antisynthetase syndrome SNOMED Code(s): 187383061 Code(s): D89.89 - OTH DISRD INVOLVING THE IMMUNE MECHANISM, NEC Status: Chronic Priority: Medium Current Visit: No (3) COPD (chronic obstructive pulmonary disease) SNOMED Code(s): 76535204 Code(s): J44.9 - CHRONIC OBSTRUCTIVE PULMONARY DISEASE, UNSPECIFIED Status : Chronic Priority: Medium Current Visit: No Annotation/Comment:: No recent fever or bronchitic type symptoms. Stable by history. (4) Hypertension SNOMED Code(s): 09857332 Code(s): I10 - ESSENTIAL (PRIMARY) HYPERTENSION Status: Chronic Priority : Medium Current Visit: No Qualifiers: (5) Hypothyroidism (acquired) SNOMED Code(s): 677152061 Code(s): E03.9 - HYPOTHYROIDISM, UNSPECIFIED Status: Chronic Priority: High Current Visit: No Annotation/Comment:: She does follow closely with [place] [facility]. (6) Mixed anxiety depressive disorder SNOMED Code(s): 625781565 Code(s): F41.8 - OTHER SPECIFIED ANXIETY DISORDERS Status: Chronic Priority: Medium Current Visit: No (7) Multiple sclerosis SNOMED Code(s): 02631401 Code(s): G35 - MULTIPLE SCLEROSIS Status: Chronic Priority: High Current Visit: No (8) Obesity (BMI 35.0-39.9 without comorbidity) SNOMED Code(s): 523764350, 030229410 Code(s): E66.9 - OBESITY, UNSPECIFIED Status: Chronic Priority: Medium Current Visit: No (9) Osteoarthritis SNOMED Code(s): 167147577 Code(s): M19.90 - UNSPECIFIED OSTEOARTHRITIS, UNSPECIFIED SITE Status: Chronic Priority: Medium Current Visit: No Qualifiers: Osteoarthritis location: multiple joints Osteoarthritis type: primary Qualified Code(s): M15.0 - Primary generalized (osteo)arthritis - Problem List Review Problem List Initiated/Reviewed/Updated: Yes - My Orders Last 24 Hours: My Active Orders 03/12/19 23:25 traMADol [Ultram] 50 mg PO Q6H PRN 03/13/19 08:00 Celecoxib [CeleBREX] 400 mg PO DAILY 03/13/19 11:40 Ready for Discharge [RC] PER UNIT ROUTINE - Plan Plan:: 03/06/19 Arsen Oropeza MD Recent left shoulder ORIF (replacement) now here for swing bed for PT-OT. 03/13/19 Arsen Oropeza MD Ready to go home. Out patient PT.
--- NOTE | 2019-03-13 22:34 | PCM.DCSUM1 ---
Discharge Summary - Hospital Course Diagnosis: Stroke: No - Discharge Data Discharge Date: 03/13/19 Discharge Disposition: Home, Self-Care 01 Condition: Good - Referral to Home Health Primary Care Physician: Isabell Womack MD - Discharge Diagnosis/Problem(s) (1) Orthopedic aftercare for joint replacement SNOMED Code(s): 990026185, 583801525 ICD Code: Z47.1 - AFTERCARE FOLLOWING JOINT REPLACEMENT SURGERY Status: Acute Priority: High Qualifiers: Joint replacement surgery site: shoulder Laterality: left Qualified Code( s): Z47.1 - Aftercare following joint replacement surgery; Z96.612 - Presence of left artificial shoulder joint (2) Antisynthetase syndrome SNOMED Code(s): 105574666 ICD Code: D89.89 - OTH DISRD INVOLVING THE IMMUNE MECHANISM, NEC Status: Chronic Priority: Medium (3) COPD (chronic obstructive pulmonary disease) SNOMED Code(s): 29813429 ICD Code: J44.9 - CHRONIC OBSTRUCTIVE PULMONARY DISEASE, UNSPECIFIED Status : Chronic Priority: Medium Problem Details: No recent fever or bronchitic type symptoms. Stable by history. (4) Hypertension SNOMED Code(s): 33508178 ICD Code: I10 - ESSENTIAL (PRIMARY) HYPERTENSION Status: Chronic Priority : Medium Qualifiers: (5) Hypothyroidism (acquired) SNOMED Code(s): 954331096 ICD Code: E03.9 - HYPOTHYROIDISM, UNSPECIFIED Status: Chronic Priority: High Problem Details: She does follow closely with [place] [facility]. (6) Mixed anxiety depressive disorder SNOMED Code(s): 494279340 ICD Code: F41.8 - OTHER SPECIFIED ANXIETY DISORDERS Status: Chronic Priority: Medium (7) Multiple sclerosis SNOMED Code(s): 84936403 ICD Code: G35 - MULTIPLE SCLEROSIS Status: Chronic Priority: High (8) Obesity (BMI 35.0-39.9 without comorbidity) SNOMED Code(s): 205113250, 853550516 ICD Code: E66.9 - OBESITY, UNSPECIFIED Status: Chronic Priority: Medium (9) Osteoarthritis SNOMED Code(s): 360384703 ICD Code: M19.90 - UNSPECIFIED OSTEOARTHRITIS, UNSPECIFIED SITE Status: Chronic Priority: Medium Qualifiers: Osteoarthritis location: multiple joints Osteoarthritis type: primary Qualified Code(s): M15.0 - Primary generalized (osteo)arthritis - Patient Summary/Data Consults: Consultations 03/06/19 15:45 Consult to Case Management/Licensed Appraiser [CONS] Routine OT Evaluation and Treatment [CONS] Routine PT Evaluation and Treatment [CONS] Routine - Patient Instructions Diet: Regular Diet as Tolerated Activity: As Tolerated Driving: Do Not Drive Showering/Bathing: May Shower Wound/Incision Care: Keep Operative Site/Wound Site Clean and Dry Notify Provider of: Fever, Increased Pain, Swelling and Redness, Drainage, Nausea and/or Vomiting Other/Special Instructions: 03/13/19 Schedule out patient PT. Keep your follow up appointments with orthopedic surgery and neurology. Follow up at [facility] as needed. - Discharge Plan *PRESCRIPTION DRUG MONITORING PROGRAM REVIEWED*: Not Applicable *COPY OF PRESCRIPTION DRUG MONITORING REPORT IN PATIENT YARELI: Not Applicable Prescriptions/Med Rec: traMADol [Ultram] 50 mg PO Q6HR PRN #120 tablet PRN Reason: Pain Celecoxib 200 mg PO DAILY #90 capsule Home Medications: Home Meds ALPRAZolam [Alprazolam] 0.25 mg PO BEDTIME 12/25/13 [History] Albuterol [Proventil HFA] 2 puff INH Q4HR PRN 12/25/13 [History] Baclofen 10 mg PO TID 12/25/13 [History] Clobetasol [Clobetasol Propionate 0.05% Cream] 1 applic TOP BID PRN 12/25/13 [ History] Folic Acid 1 mg PO DAILY 12/25/13 [History] Interferon Beta-1a w/Albumin [Rebif] 44 mcg SUBCUT MOWEFR@2100 12/25/13 [History ] Metoprolol Tartrate [Lopressor] 25 mg PO BID 12/25/13 [History] Multivitamin [Multi-Vitamin Daily] 1 tab PO DAILY 12/25/13 [History] Potassium Chloride 20 meq PO BID 12/25/13 [History] Sertraline [Zoloft] 100 mg PO DAILY 12/25/13 [History] azaTHIOprine [Azathioprine] 1 tab PO BID 12/25/13 [History] hydroCHLOROthiazide [Hydrochlorothiazide] 12.5 mg PO DAILY 11/15/14 [History] Cinnamon Bark [Cinnamon] 500 mg PO DAILY 06/22/18 [History] Fluticasone/Vilanterol [Breo Ellipta 100-25 MCG Inhalation Kit] 1 puff IH BEDTIME 06/22/18 [History] Liothyronine [Cytomel] 5 mcg PO DAILY 06/22/18 [History] Oxybutynin [Oxybutynin ER] 5 mg PO DAILY 06/22/18 [History] Phentermine HCl 37.5 mg PO DAILY 06/22/18 [History] Pregabalin [Lyrica] 75 mg PO DAILY 06/22/18 [History] Pregabalin [Lyrica] 150 mg PO BEDTIME 06/22/18 [History] Triamcinolone Acetonide [Kenalog 0.1% Crm] 1 applic TOP BID PRN 06/22/18 [ History] sulfaSALAzine 500 mg PO DAILY PRN 06/22/18 [History] Levothyroxine 150 mcg PO DAILY 08/11/18 [History] Nystatin [Nyamyc] 1 applic TOP BID 08/11/18 [History] Polyethylene Glycol 3350 [Miralax] 17 gm PO DAILY PRN 08/11/18 [History] Cholecalciferol (Vitamin D3) [Vitamin D3] 5,000 units PO DAILY tablet 08/24/18 [Rx] predniSONE 5 mg PO DAILY@1200 tablet 08/24/18 [Rx] Acetaminophen [Tylenol] 650 mg PO Q6H 03/06/19 [History] Aspirin 1 tab PO DAILY 03/06/19 [History] Aspirin [Aspirin EC] 1 tab PO DAILY 03/06/19 [History] Betamethasone Dipropionate 1 applic TOP DAILY PRN 03/06/19 [History] Bisacodyl [Dulcolax] 5 mg PO BID PRN 03/06/19 [History] Black Cohosh Root Extract [Black Cohosh] 1 tab PO BEDTIME 03/06/19 [History] Calcium Citrate 2 tab PO DAILY 03/06/19 [History] Cyanocobalamin (Vitamin B-12) [B-12] 1 tab PO DAILY 03/06/19 [History] Garlic 1 cap PO DAILY 03/06/19 [History] Makenna Root 1 cap PO DAILY 03/06/19 [History] Ketoconazole [Nizoral 2% Crm] 1 applic TOP DAILY 03/06/19 [History] L.acidoph,Paracasei, B.lactis [Probiotic] 3 cap PO DAILY 03/06/19 [History] Melatonin 1 tab PO BEDTIME 03/06/19 [History] Multivitamin with Minerals [Hair, Skin and Nails] 1 tab PO DAILY 03/06/19 [ History] [place]-3/DHA/Epa/Fish Oil [Fish Oil 1,400 MG Softgel] 1 cap PO DAILY 03/06/19 [ History] Sennosides/Docusate Sodium [Senna-Docusate Sodium Tablet] 1 tab PO BID 03/06/19 [History] Turmeric 1 cap PO DAILY 03/06/19 [History] Celecoxib 200 mg PO DAILY #90 capsule 03/13/19 [Rx] traMADol [Ultram] 50 mg PO Q6HR PRN #120 tablet 03/13/19 [Rx] Oxygen Therapy Mode: Room Air - Discharge Summary/Plan Comment DC Time >30 min.: No - Patient Data Vitals - Most Recent: Last Vital Signs Temp 98.9 F 03/13/19 08:00 Pulse 86 03/13/19 08:00 Resp 18 03/13/19 08:00 BP 127/66 03/13/19 08:00 Pulse Ox 91 L 03/13/19 08:00 Weight - Most Recent: 325 lb 3.2 oz I&O - Last 24 hours: Intake & Output 03/13/19 03/13/19 03/13/19 06:59 14:59 22:59 Intake Total 800 Balance 800 Med Orders - Current: Current Medications Discontinued Medications Acetaminophen (Tylenol) 650 mg PO Q6H [facility] Stop: 03/10/19 16:01 Last Admin: 03/10/19 15:19 Dose: 650 mg Albuterol (Ventolin Hfa) 0 gm INH Q4H PRN PRN Reason: sob Alprazolam (Xanax) 0.25 mg PO BEDTIME [facility] Last Admin: 03/12/19 20:14 Dose: 0.25 mg Aspirin (Ecotrin) 325 mg PO DAILY [facility] Stop: 03/31/19 08:01 Last Admin: 03/13/19 07:48 Dose: 325 mg Aspirin (Aspirin) 81 mg PO DAILY [facility] Azathioprine (Imuran) 50 mg PO BID [facility] Last Admin: 03/13/19 07:49 Dose: 50 mg Baclofen (Lioresal) 10 mg PO TID [facility] Last Admin: 03/13/19 11:38 Dose: 10 mg Bisacodyl (Dulcolax) 5 mg PO BID PRN PRN Reason: Constipation Celecoxib (Celebrex) 400 mg PO DAILY [facility] Last Admin: 03/13/19 09:49 Dose: Not Given Cholecalciferol (Vitamin D3) 125 mcg PO DAILY [facility] Last Admin: 03/13/19 07:54 Dose: 125 mcg Cyanocobalamin (Vitamin B12) 1,000 mcg PO DAILY [facility] Last Admin: 03/13/19 07:54 Dose: 1,000 mcg Folic Acid (Folic Acid) 1 mg PO DAILY [facility] Last Admin: 03/13/19 07:48 Dose: 1 mg Influenza Virus Vaccine (Fluzone Quad [id number] Syringe) 60 mcg IM .ONCE ONE Stop: 03/07/19 10:01 Last Admin: 03/07/19 10:25 Dose: 60 mcg Ketoconazole (Nizoral 2% Crm) 0 gm TOP DAILY [facility] Last Admin: 03/13/19 07:52 Dose: 1 applic Lactobacillus Rhamnosus (Culturelle) 3 cap PO DAILY [facility] Last Admin: 03/13/19 07:47 Dose: 3 cap Levothyroxine Sodium (Levothyroxine) 150 mcg PO DAILY [facility] Last Admin: 03/13/19 07:49 Dose: 150 mcg Metoprolol Tartrate (Lopressor) 25 mg PO BID [facility] Last Admin: 03/13/19 07:50 Dose: 25 mg Multivitamins/Minerals/Vitamin C (Tab-A-Renate) 1 tab PO DAILY [facility] Last Admin: 03/13/19 07:54 Dose: 1 tab Non-Formulary Medication (Betamethasone Dipropionate [Betamethasone Dipropionate ]) 1 applic TOP DAILY PRN PRN Reason: Rash Non-Formulary Medication (Black Cohosh [Black Cohosh]) 1 tab PO BEDTIME [facility] Last Admin: 03/06/19 23:09 Dose: Not Given Calcium Citrate [ Calcium Citrate] 600mg 2 tab PO DAILY [facility] Last Admin: 03/13/19 07:46 Dose: 2 tab Celecoxib [Celecoxib (] 200 Mg Caps) 200 mg PO DAILY [facility] Stop: 03/12/19 08:01 Last Admin: 03/12/19 07:48 Dose: 200 mg Non-Formulary Medication (Cinnamon Bark [Cinnamon]) 500 mg PO DAILY [facility] Fluticasone/Vilanterol [Breo Ellipta 100-25 Mcg Inhalatio 1 puff IH BEDTIME [facility] Last Admin: 03/12/19 20:11 Dose: 1 puff Non-Formulary Medication (Garlic [Garlic]) 1 cap PO DAILY [facility] Non-Formulary Medication (Makenna Root [Makenna Root]) 1 cap PO DAILY [facility] Hydrochlorothiazide (12.5mg Tablets) 12.5 each PO DAILY [facility] Last Admin: 03/13/19 07:52 Dose: 12.5 each (Interferon Beta-1a W/Albumin [Rebif] 44 Mcg) 44 mcg SUBCUT MOWEFR@2100 [facility] Last Admin: 03/12/19 20:20 Dose: 44 mcg Liothyronine [ Cytomel] 5 Mcg Tablets 5 mcg PO DAILY [facility] Last Admin: 03/13/19 07:50 Dose: 5 mcg Melatonin [Melatonin (] 1 Mg Tablets) 1 tab PO BEDTIME [facility] Last Admin: 03/12/19 20:12 Dose: 1 tab Non-Formulary Medication (Multivitamin With Minerals [Hair, Skin And Nails]) 1 tab PO DAILY [facility] ([place]-3/Dha/Epa/Fish Oil [Fish Oil 1 ,400 Mg Softgel] 1 Ca 1 cap PO DAILY [facility] Last Admin: 03/13/19 07:53 Dose: 1 cap (Phentermine Hcl [ Phentermine Hcl] 37. 5 Mg) 37.5 mg PO DAILY [facility] Last Admin: 03/13/19 07:51 Dose: 37.5 mg (Sertraline [Zoloft] (100 Mg Tablets) 100 mg PO DAILY [facility] Last Admin: 03/13/19 07:53 Dose: 100 mg Nystatin (Nystop) gm TOP BID [facility] Oxybutynin Chloride (Oxybutynin Er) 5 mg PO DAILY [facility] Last Admin: 03/08/19 08:55 Dose: Not Given Oxybutynin Chloride (Oxybutynin Er) 5 mg PO BEDTIME [facility] Last Admin: 03/12/19 20:15 Dose: 5 mg Oxycodone HCl (Oxycodone) 5 - 10 mg PO Q6H PRN PRN Reason: Pain Last Admin: 03/11/19 20:24 Dose: 5 mg Polyethylene Glycol (Miralax) 17 gm PO DAILY PRN PRN Reason: Constipation Potassium Chloride (Klor-Con 10) 20 meq PO BID [facility] Last Admin: 03/13/19 07:49 Dose: 20 meq Prednisone (Prednisone) 5 mg PO DAILY@1200 [facility] Last Admin: 03/13/19 11:39 Dose: 5 mg Pregabalin (Lyrica) 75 mg PO DAILY [facility] Last Admin: 03/13/19 07:51 Dose: 75 mg Pregabalin (Lyrica) 150 mg PO BEDTIME [facility] Last Admin: 03/12/19 20:13 Dose: 150 mg Senna/Docusate Sodium (Senna Plus) 1 tab PO BID [facility] Last Admin: 03/13/19 07:53 Dose: 1 tab Sulfasalazine (Sulfasalazine) 500 mg PO DAILY PRN PRN Reason: Abdominal Pain Tramadol HCl (Ultram) 50 mg PO Q6HR [facility] Stop: 03/11/19 16:01 Last Admin: 03/11/19 16:44 Dose: 50 mg Tramadol HCl (Ultram) 50 mg PO Q6H PRN PRN Reason: Pain *Q Meaningful Use (DIS) - VTE *Q VTE Mechanical Contraindications *Q: At Risk for Falls
[2019-04-02] MEDS ORDERED: Aspirin 81 MG Tab.Chew PO SCH (08:00)
== END 2019-03-13 14:00 | disposition home or self-care (01) | DRG 862 ==
LOC: UNDOADMIN 15:30 → LL.SWG 15:30
PROVIDERS: ADMIT Family Medicine; ATTEND Family Medicine
DX: Z47.1 Aftercare following joint replacement surgery (principal); Z96.612 Presence of left artificial shoulder joint; J44.9 Chronic obstructive pulmonary disease, unspecified; D89.89 Other specified disorders involving the immune mechanism, not elsewhere classified; E03.9 Hypothyroidism, unspecified; F41.8 Other specified anxiety disorders; G35 Multiple sclerosis; E66.9 Obesity, unspecified; M15.0 Primary generalized (osteo)arthritis; I11.0 Hypertensive heart disease with heart failure; E78.00 Pure hypercholesterolemia, unspecified; I50.9 Heart failure, unspecified; E78.5 Hyperlipidemia, unspecified; G47.30 Sleep apnea, unspecified; G25.81 Restless legs syndrome; K59.09 Other constipation; K21.9 Gastro-esophageal reflux disease without esophagitis; Z96.653 Presence of artificial knee joint, bilateral; Z79.890 Hormone replacement therapy; Z79.899 Other long term (current) drug therapy; Z87.01 Personal history of pneumonia (recurrent); Z90.710 Acquired absence of both cervix and uterus; Z68.43 Body mass index [BMI] 50.0-59.9, adult
CPT/HCPCS: 90686; 97110-GP; 97162-GP; 97165-GO; 97530-GO; 97530-GP; 97535-GO; A9270-GY; J7500

== ENCOUNTER 2020-07-28 17:00 | Emergency (ER) | payer BC ==
[~2020-07-28 17:00] MED LIST: Iopamidol 755 Mg/ML 100 ML Bottle IVPUSH ONE
[2020-07-28] MEDS ORDERED: Sodium Chloride 0.9% 10 ML Syringe FLUSH PRN (17:09)
[2020-07-28] MEDS ORDERED: Aspirin 81 MG Tab.Chew PO ONE (17:22)
[2020-07-28] MEDS ORDERED: Nitroglycerin 0.4 MG Tab.SL SL ONE (17:22)
--- NOTE | 2020-07-28 17:23 | EDM.PDOC ---
ED HPI GENERAL MEDICAL PROBLEM - General Chief Complaint: Chest Pain Stated Complaint: chest pain Time Seen by Provider: 07/28/20 17:09 Source of Information: Reports: Patient History Limitations: Reports: No Limitations - History of Present Illness INITIAL COMMENTS - FREE TEXT/NARRATIVE: 3 day history of substernal/epigastric discomfort. Today she notes it radiates to back. Some nausea. Has had low grade temp at times of around 100. Also reports intermittent lower abdominal pain. No history of FL. Previous stress tests negative. No known exposure to illness. Denies BOYLE/HEENT changes. No new SOB/Cough/sputum No change in chest pain with eating/drinking/burping/positional changes other than it gets "a little" worse if she lays flat. No vomiting/diarrhea. No new limb pain/joint pain. No UTI complaints. Has been seen in past for similar pain in center of chest and was told it was likely GI. Previous episodes did not have the low grade temp or abdominal discomfort. Chest Pain Pain Score (Numeric/FACES): 4 - Related Data Allergies Allergy/AdvReac Type Severity Reaction Status Date / Time generic pain medication Allergy Vomiting Uncoded 07/28/20 19:32 Home Meds: Home Meds ALPRAZolam [Alprazolam] 0.25 mg PO BEDTIME 12/25/13 [History] Albuterol [Proventil HFA] 2 puff INH Q4HR PRN 12/25/13 [History] Baclofen 10 mg PO TID 12/25/13 [History] Clobetasol [Clobetasol Propionate 0.05% Cream] 1 applic TOP BID PRN 12/25/13 [History] Folic Acid 1 mg PO DAILY 12/25/13 [History] Interferon Beta-1a w/Albumin [Rebif] 44 mcg SUBCUT MOWEFR@2100 12/25/13 [History] Metoprolol Tartrate [Lopressor] 25 mg PO BID 12/25/13 [History] Multivitamin [Multi-Vitamin Daily] 1 tab PO DAILY 12/25/13 [History] Potassium Chloride 20 meq PO BID 12/25/13 [History] Sertraline [Zoloft] 100 mg PO DAILY 12/25/13 [History] azaTHIOprine [Azathioprine] 1 tab PO BID 12/25/13 [History] hydroCHLOROthiazide [Hydrochlorothiazide] 12.5 mg PO DAILY 11/15/14 [History] Cinnamon Bark [Cinnamon] 500 mg PO DAILY 06/22/18 [History] Fluticasone/Vilanterol [Breo Ellipta 100-25 MCG Inhalation Kit] 1 puff IH BEDTIME 06/22/18 [History] Liothyronine [Cytomel] 5 mcg PO DAILY 06/22/18 [History] Oxybutynin [Oxybutynin ER] 5 mg PO DAILY 06/22/18 [History] Phentermine HCl 37.5 mg PO DAILY 06/22/18 [History] Pregabalin [Lyrica] 75 mg PO DAILY 06/22/18 [History] Pregabalin [Lyrica] 150 mg PO BEDTIME 06/22/18 [History] Triamcinolone Acetonide [Kenalog 0.1% Crm] 1 applic TOP BID PRN 06/22/18 [H istory] sulfaSALAzine 500 mg PO DAILY PRN 06/22/18 [History] Levothyroxine 150 mcg PO MOTUWETHFRSA@0800 08/11/18 [History] Nystatin [Nyamyc] 1 applic TOP BID PRN 08/11/18 [History] polyethylene glycoL 3350 [Miralax] 17 gm PO DAILY PRN 08/11/18 [History] Cholecalciferol (Vitamin D3) [Vitamin D3] 5,000 units PO DAILY tablet 08/24/18 [Rx] Acetaminophen [Tylenol] 650 mg PO Q6H 03/06/19 [History] Aspirin 1 tab PO DAILY 03/06/19 [History] Betamethasone Dipropionate 1 applic TOP DAILY PRN 03/06/19 [History] Calcium Citrate 2 tab PO DAILY 03/06/19 [History] Cyanocobalamin (Vitamin B-12) [B-12] 1 tab PO DAILY 03/06/19 [History] Garlic 1 cap PO DAILY 03/06/19 [History] Makenna Root 1 cap PO DAILY 03/06/19 [History] Ketoconazole [Nizoral 2% Crm] 1 applic TOP DAILY PRN 03/06/19 [History] L.acidoph,Paracasei, B.lactis [Probiotic] 3 cap PO DAILY 03/06/19 [History] Melatonin 1 tab PO BEDTIME 03/06/19 [History] Multivitamin with Minerals [Hair, Skin and Nails] 1 tab PO DAILY 03/06/19 [History] Burgaw-3/DHA/Epa/Fish Oil [Fish Oil 1,400 MG Softgel] 1 cap PO DAILY 03/06/19 [History] Sennosides/Docusate Sodium [Senna-Docusate Sodium Tablet] 1 tab PO BID PRN 03/06/19 [History] Turmeric 1 cap PO DAILY 03/06/19 [History] bisacodyL [Dulcolax] 5 mg PO BID PRN 03/06/19 [History] traMADol [Ultram] 50 mg PO Q6HR PRN #120 tablet 03/13/19 [Rx] Celecoxib 400 mg PO DAILY 07/28/20 [History] Levothyroxine 300 mcg PO GAY@0800 07/28/20 [History] predniSONE [Prednisone] 1 mg PO DAILY 07/28/20 [History] Past Medical History HEENT History: Reports: Impaired Vision, Other (See Below) Other HEENT History: She wears glasses. Cardiovascular History: Reports: Arrhythmia, Heart Failure, High Cholesterol, Hypertension, Other (See Below) Other Cardiovascular History: PVCs. Dyslipidemia and obesity. Respiratory History: Reports: Asthma, Bronchitis, Recurrent, COPD, Intubation, Previous, Pneumonia, Recurrent, Pulmonary Fibrosis, Sleep Apnea, Other (See Below) Other Respiratory History: Sleep apnea and restless leg syndrome with patient noncompliant with her CPAP recently Gastrointestinal History: Reports: Cholelithiasis, Chronic Constipation, Diverticulosis, Gastritis, GERD, Hiatal Hernia, Other (See Below) Other Gastrointestinal History: Ventral abdominal hernias by CT scan. Genitourinary History: Reports: Hydronephrosis, Renal Calculus, Urinary Incontinence, Other (See Below) Other Genitourinary History: Sided urolithiasis on 10/22/12. Moderate right-sided hydronephrosis with additional urolithiasis with spontaneous passage on 12/25/13. BOILER OUT History: Reports: Dysfunctional Uterine Bleeding, Polycystic Ovaries, Other BOILER OUT History: Full term without complications during pregnancies or deliveries. Surgical menopause as below secondary to polycystic ovarian syndrome. 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 Small proximal avulsion fracture of the middle phalanx of digit #5 of the left hand with PIP dislocation on 11/05/14 with dislocation of the middle phalanx. Neurological History: Reports: Headaches, Chronic, MS, Neuropathy, Peripheral, Speech Problems, Vertigo, Other (See Below) Other Neuro History: Restless leg syndrome. Occasional dysarthria and vertigo/dizziness secondary to her MS diagnosed on 10/18/06 by MRI as below. Psychiatric History: Reports: Addiction, Anxiety, Depression, Other (See Below) Other Psychiatric History: Intermittent Ultram use. 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 Hypokalemia. Hematologic History: Reports: Other (See Below) Other Hematologic History: Anemia after first . Immunologic History: Reports: None, Immunosuppression, Other (See Below) Other Immunologic History: Immunosuppression secondary to medical therapy for her MS. 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 Dermatologic History: Reports: Psoriasis - Infectious Disease History Infectious Disease History: Reports: Chicken Pox, Influenza (Influenza A on 04/02/14), Mononucleosis (Recurrent in her 30s), Rheumatic Fever (1994.). Denies: C-Difficile, Measles, Meningitis, MRSA, Mumps, Pertussis (Whooping Cough), Rubella, Scarlet Fever, Shingles, TB, VRE - Past Surgical History Head Surgeries/Procedures: Reports: None HEENT Surgical History: Reports: Oral Surgery, Other (See Below) Other HEENT Surgeries/Procedures: Multiple teeth extractions. Cardiovascular Surgical History: Reports: None Respiratory Surgical History: Reports: Other (See Below) Other Respiratory Surgeries/Procedures: Bronchoscopy at age 6 to remove a peanut. GI Surgical History: Reports: Bariatric Procedure, Cholecystectomy, Colonoscopy, Other (See Below) Other GI Surgeries/Procedures: Colonoscopy last in 2009. Gastric banding in 2008. Laparoscopic cholecystectomy in 2007. Female Surgical History: Reports: Breast Biopsy, D&C, Hysterectomy, Oophorectomy, Salpingo-Oophorectomy, Tubal Ligation, Other (See Below) Other Female Surgeries/Procedures: Lateral tubal ligation in 1987. D&C secondary to dysfunctional uterine bleeding on 10/06/95. Left-sided oophorectomy in April 1985. Laparoscopic assisted vaginal hysterectomy with concomitant right-sided salpingo-oophorectomy and posterior repair on 04/09/99. Endocrine Surgical History: Reports: None Musculoskeletal Surgical History: Reports: Other (See Below) Other Musculoskeletal Surgeries/Procedures:: Left arthroscopic knee surgery in the . Left TKA on 02/05/2000 with right TKA on 09/25/11. Left open knee surgery in 1975. Dermatological Surgical History: Reports: Skin Biopsy, Other (See Below) - Past Imaging History Past Imaging History: Reports: Angiography (Negative heart catheterization on 09/29/16.), Cardiac Echo (06/06/12 with ejection fraction of 55%.), CAT Scan (CT of the abdomen and pelvis on 12/25/13 and 10/22/12.), DEXA Scan (01/31/15), Mammogram (Last mammogram on 01/07/17.), MRI (MRI of the lumbar spine on 03/03/18 and thoracic spine on 04/15/14. MRI of the Brain on 10/18/06 confirming MS.), PFT (Last PFTs on 03/17/18.), Stress Testing (Borderline positive Lexiscan on 08/31/16.), Ultrasound (Soft tissue ultrasound of the neck on 08/26/17.), Other (See Below) (Multiple EMGs and nerve conduction studies last on 04/13/18. Visual evoked potential on 12/12/12.) Social & Family History - Family History HEENT: Reports: None Cardiac: Reports: Afib, AICD, Arrhythmia, Blood Clots/VTE/DVT, Bypass, CAD, High Cholesterol, Hypertension, FL, Pacemaker, Other (See Below) Other Cardiac Family History: Father with history of postoperative DVT of the leg after CABG. Father with initial FL at age 51 with three-vessel CABG. Subsequent FL, atrial fibrillation, and AICD/pacemaker placement at age 61. Patient with fatal FL/arrhythmia despite the ICD at age 70. Paternal grandmother with unknown type of fatal heart disease in her early 50s. Brother and father with hyperlipidemia. Mother with hypertension. Paternal aunt with mitral valve prolapse. Respiratory: Reports: COPD, Sleep Apnea Other Respiratory Family Hisory: Son with sleep apnea. Father with COPD with history of tobacco use. GI: Reports: Celiac Disease, Pancreatitis, Other (See Below) Other GI Family History: Mother with cholelithiasis and diverticulosis. Son with celiac disease. Sister with cholelithiasis and secondary pancreatitis. : Reports: Renal Calculus, Other (See Below) Other Family History: Brother with urolithiasis. OBGYN: Reports: None Musculoskeletal: Reports: Arthritis, Gout, Other (See Below) Other Musculoskeletal Family History: Son with gout. Neurological: Reports: Migraines, Seizure, Other (See Below) Other Neurological Family History: Son with migraine headaches. Sister with unknown type of seizure disorder. Psychiatric: Reports: Anxiety, Depression, Other (See Below) Other Psychiatric Family History: Son with anxiety depression disorder. Endocrine/Metabolic: Reports: Diabetes, type II, Hypothyroidism, IDDM, Other (See Below) Other Endocrine/Metabolic Family History: Paternal aunt and Maternal grandfather with IDDM. Sister and mother with hypothyroidism. Hematologic: Reports: None Immunologic: Reports: None Dermatologic: Reports: None Oncologic: Reports: Lung, Skin, Other (See Below) Other Oncologic Family History: Paternal grandfather with fatal lung cancer at age 65 with history of tobacco use. Mother with squamous cell carcinoma. Father with basal cell carcinoma. Brother with melanoma. Maternal uncle with fatal pancreatic cancer in his 70s. 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 Denies: Pleuritic Chest Pain Cardiovascular: Reports: Chest Pain, Dyspnea on Exertion (chronic/unchanged). Denies: Edema, Lightheadedness, Palpitations, Syncope GI/Abdominal: Reports: Abdominal Pain, Nausea. Denies: Black Stool, Bloody Stool, Constipation, Diarrhea, Distension, Vomiting : Reports: No Symptoms Musculoskeletal: Reports: Other (no acute changes from baseline) Skin: Reports: No Symptoms Neurological: Reports: Pre-Existing Deficit (Has MS/no acute neuro changes). Denies: Headache Psychiatric: Reports: No Symptoms Hematologic/Lymphatic: Reports: No Symptoms ED EXAM, GENERAL - Physical Exam Exam: See Below Exam Limited By: No Limitations General Appearance: Alert, WD/WN, No Apparent Distress, Obese Eye Exam: Bilateral Eye: EOMI, PERRL Ears: Normal External Exam, Normal Canal, Hearing Grossly Normal Nose: No: Nasal Deformity, Nasal Swelling, Nasal Drainage Throat/Mouth: Normal Lips, Normal Voice, No Airway Compromise Head: Atraumatic, Normocephalic Neck: Normal Inspection, Supple, Non-Tender, Full Range of Motion Respiratory/Chest: No Respiratory Distress, Lungs Clear, Normal Breath Sounds, No Accessory Muscle Use, Chest Non-Tender, Other (palpation does not reproduce pain) Cardiovascular: Regular Rate, Rhythm, No Murmur Peripheral Pulses: 2+: Radial (L), Radial (R) GI/Abdominal: Soft, Abnormal Bowel Sounds (diminished throughout), Other (obese, diffuse discomfort with palpation all quadrants). No: Guarding, Rigid, Rebound (Female) Exam: Deferred Rectal (Female) Exam: Deferred Back Exam: No: CVA Tenderness (L), CVA Tenderness (R), Muscle Spasm, Paraspinal Tenderness, Vertebral Tenderness Extremities: Non-Tender, No Pedal Edema, Normal Capillary Refill Neurological: Alert, Oriented, Normal Cognition, Other (equal strength and tone bilaterally) Psychiatric: Normal Affect, Normal Mood Skin Exam: Warm, Dry, Intact, Normal Color #1 Interpretation EKG Date: 07/28/20 Time: 17:05 Rhythm: NSR Rate (Beats/Min): 79 Wray: LAD-Left Wray Deviation P-Wave: Present QRS: Normal ST-T: Other (no obvious ST changes) QT: Normal Comparison: NA - No Prior EKG Course - Vital Signs Last Recorded V/S: Last Vital Signs Temp 36.7 C 07/28/20 17:40 Pulse 68 07/28/20 18:08 Resp 18 07/28/20 18:08 BP 134/62 07/28/20 18:08 Pulse Ox 97 07/28/20 18:08 - Orders/Labs/Meds Orders: Active Orders 24 hr Category Date Time Status EKG Documentation Completion [RC] ASDIRECTED Care 07/28/20 17:10 Active Chest 1V Frontal [CR] Stat Exams 07/28/20 17:49 Taken PE Chest [Ang Chest] [CT] Stat Exams 07/28/20 18:06 Taken UA W/MICROSCOPIC [URIN] Stat Lab 07/28/20 17:09 Ordered Sodium Chloride 0.9% [Saline Flush] Med 07/28/20 17:09 Active 10 ml FLUSH ASDIRECTED PRN Saline Lock Insert [OM.PC] Stat Oth 07/28/20 17:09 Ordered Medication Orders Sodium Chloride (Sodium Chloride 0.9% 10 Ml Syringe) 10 ml FLUSH ASDIRECTED PRN PRN Reason: Keep Vein Open Labs: Laboratory Tests 07/28/20 07/28/20 07/28/20 Range/Units 17:25 17:25 17:25 WBC 6.3 (4.0-10.2) K/uL RBC 4.48 (3.77-5.09) M/uL Hgb 13.3 (11.7-15.5) g/dL Hct 41.8 (34.0-46.0) % MCV 93.3 D (84.0-98.0) fL MCH 29.7 (28.2-33.3) pg MCHC 31.8 (31.7-36.0) g/dL RDW 14.0 (11.2-14.1) % Plt Count 196 (150-350) K/uL Neut % (Auto) 72.4 (45.0-80.0) % Lymph % (Auto) 14.8 (10.0-50.0) % Knox % (Auto) 10.2 (2.0-14.0) % Eos % (Auto) 2.1 (0.0-5.0) % Baso % (Auto) 0.5 (0.0-2.0) % Neut # (Auto) 4.56 (1.40-7.00) K/uL Lymph # (Auto) 0.93 (0.50-3.50) K/uL Knox # (Auto) 0.64 (0.00-1.00) K/uL Eos # (Auto) 0.13 (0.00-0.50) K/uL Baso # (Auto) 0.03 (0.00-0.20) K/uL PT 9.6 (9.5-12.0) SEC INR 1.0 D-Dimer, Quantitative 2450 H (0-400) ng/mL Sodium (136-145) mmol/L Potassium (3.5-5.1) mmol/L Chloride (98-107) mmol/L Carbon Dioxide (21.0-32.0) mmol/L BUN (7-18) mg/dL Creatinine (0.51-1.17) mg/dL Est Cr Clr Drug Dosing Estimated GFR (MDRD) mL/min Glucose (70-99) mg/dL Lactic Acid (0.4-2.0) mmol/L Calcium (8.5-10.1) mg/dL Magnesium (1.8-2.4) mg/dL Total Bilirubin (0.2-1.0) mg/dL AST (15-37) U/L ALT (12-78) U/L Alkaline Phosphatase (46-116) IU/L Troponin I (0.000-0.056) ng/mL NT-Pro-B Natriuret Pep (0-125) pg/mL Total Protein (6.4-8.2) g/dL Albumin (3.4-5.0) g/dL 07/28/20 07/28/20 Range/Units 17:25 17:25 WBC (4.0-10.2) K/uL RBC (3.77-5.09) M/uL Hgb (11.7-15.5) g/dL Hct (34.0-46.0) % MCV (84.0-98.0) fL MCH (28.2-33.3) pg MCHC (31.7-36.0) g/dL RDW (11.2-14.1) % Plt Count (150-350) K/uL Neut % (Auto) (45.0-80.0) % Lymph % (Auto) (10.0-50.0) % Knox % (Auto) (2.0-14.0) % Eos % (Auto) (0.0-5.0) % Baso % (Auto) (0.0-2.0) % Neut # (Auto) (1.40-7.00) K/uL Lymph # (Auto) (0.50-3.50) K/uL Knox # (Auto) (0.00-1.00) K/uL Eos # (Auto) (0.00-0.50) K/uL Baso # (Auto) (0.00-0.20) K/uL PT (9.5-12.0) SEC INR D-Dimer, Quantitative (0-400) ng/mL Sodium 145 (136-145) mmol/L Potassium 3.6 (3.5-5.1) mmol/L Chloride 105 (98-107) mmol/L Carbon Dioxide 29.5 (21.0-32.0) mmol/L BUN 12 (7-18) mg/dL Creatinine 0.75 (0.51-1.17) mg/dL Est Cr Clr Drug Dosing TNP Estimated GFR (MDRD) > 60 mL/min Glucose 118 H (70-99) mg/dL Lactic Acid 1.2 (0.4-2.0) mmol/L Calcium 9.0 (8.5-10.1) mg/dL Magnesium 1.9 (1.8-2.4) mg/dL Total Bilirubin 0.4 (0.2-1.0) mg/dL AST 24 (15-37) U/L ALT 30 (12-78) U/L Alkaline Phosphatase 64 (46-116) IU/L Troponin I 0.000 (0.000-0.056) ng/mL NT-Pro-B Natriuret Pep 35 (0-125) pg/mL Total Protein 7.2 (6.4-8.2) g/dL Albumin 3.3 L (3.4-5.0) g/dL Meds: Medications Generic Name Dose Route Start Last Admin Trade Name Freq PRN Reason Stop Dose Admin Sodium Chloride 10 ml 07/28/20 17:09 Sodium Chloride 0.9% 10 Ml Syringe FLUSH ASDIRECTED PRN Keep Vein Open Discontinued Medications Generic Name Dose Route Start Last Admin Trade Name Freq PRN Reason Stop Dose Admin Al Hydroxide/Mg Hydroxide 30 ml 07/28/20 18:30 07/28/20 19:05 Gi Cocktail Oral Solution 30 Ml PO 07/28/20 18:31 30 ml ONETIME ONE Administration Aspirin 324 mg 07/28/20 17:22 07/28/20 17:36 Aspirin 81 Mg Tab.Chew PO 07/28/20 17:23 324 mg ONETIME ONE Administration Iopamidol 100 ml 07/28/20 13:00 07/28/20 18:40 Iopamidol 755 Mg/Ml 100 Ml Bottle IVPUSH 07/28/20 13:01 100 ml ONETIME ONE Administration Iopamidol Confirm 07/28/20 18:20 Iopamidol 755 Mg/Ml 100 Ml Bottle Administered 07/28/20 18:21 Dose 100 ml .ROUTE .STK-MED ONE Nitroglycerin 0.4 mg 07/28/20 17:22 07/28/20 17:38 Nitroglycerin 0.4 Mg Tab.Sl SL 07/28/20 17:23 0.4 mg ONETIME ONE Administration Pantoprazole Sodium 40 mg 07/28/20 19:18 Pantoprazole 40 Mg Vial IVPUSH 07/28/20 19:19 ONETIME ONE Sucralfate 1 gm 07/28/20 19:18 Sucralfate 1 Gm Tab PO 07/28/20 19:19 ONETIME ONE - Re-Assessments/Exams Free Text/Narrative Re-Assessment/Exam: 07/28/20 19:13 Afebrile. Vital signs stable. Received ASA. No focal findings on chest xray/CBC/Chem/Mg/Trop/ProBNP. No acute ST change on EKG. No change in pain with Nitro. DDimer elevated. Patient agreed to CT of chest to rule out PE as cause of pain. GI cocktail ordered. Pain significantly improved. 07/28/20 20:11 CT results faxed 19:23 No PE noted. Suspected that there is some pulmonary hypertension. Pain remains significantly improved. Is pain free at this time in substernal area. Given that (1) pain present for three days and Troponin/EKG negative, (2) history of multiple previous similar episodes which pointed towards GI etiology and not cardiac, and (3) patient is pain-free after GI cocktail, it was determined that she would not be required to stay overnight for serial troponins. Patient wanted to go home and felt comfortable doing so. Prolonged time spent discussing dietary changes for her chronic inflammatory issues/MS/and GERD. She was advised by her neuro specialist to consider Oscar's protocol. She was encouraged to follow through with that recommendation. To follow up with her PCP/discuss new stress testing and if there is need for PPI. Departure - Departure Time of Disposition: 20:08 Disposition: Home, Self-Care 01 Condition: Good Clinical Impression: Atypical chest pain - Discharge Information *PRESCRIPTION DRUG MONITORING PROGRAM REVIEWED*: Not Applicable *COPY OF PRESCRIPTION DRUG MONITORING REPORT IN PATIENT YARELI: Not Applicable Instructions: Nonspecific Chest Pain, Adult, [id number] Referrals: Claudette Matt PA-C [Primary Care Provider] - Forms: ED Department Discharge Additional Instructions: Watch for changes. Oscar's Protocol! It can help inflammation/MS/reflux/heartburn....a lot of things! Contact your regular provider and review when you last had a stress test and if you should have a new one scheduled. Discuss if you should start a PPI/stomach acid medication. Diet change as discussed may alone really help in that area. Return to ER if you have sudden worsening problems. Sepsis Event Note (ED) - Focused Exam Vital Signs: Vital Signs Temp Pulse Resp BP BP Pulse Ox 07/28/20 18:08 68 18 134/62 97 07/28/20 17:54 70 18 114/52 L 96 07/28/20 17:40 36.7 C 79 20 122/98 H 96 07/28/20 17:38 122/98 H 07/28/20 17:09 36.9 C 75 20 127/78 95 07/28/20 17:01 36.4 C 86 14 135/70 97 - My Orders Last 24 Hours: My Active Orders 07/28/20 17:09 UA W/MICROSCOPIC [URIN] Stat Sodium Chloride 0.9% [Saline Flush] 10 ml FLUSH ASDIRECTED PRN Saline Lock Insert [OM.PC] Stat 07/28/20 17:10 EKG Documentation Completion [RC] ASDIRECTED 07/28/20 17:49 Chest 1V Frontal [CR] Stat 07/28/20 18:06 PE Chest [Ang Chest] [CT] Stat - Assessment/Plan Last 24 Hours: My Active Orders 07/28/20 17:09 UA W/MICROSCOPIC [URIN] Stat Sodium Chloride 0.9% [Saline Flush] 10 ml FLUSH ASDIRECTED PRN Saline Lock Insert [OM.PC] Stat 07/28/20 17:10 EKG Documentation Completion [RC] ASDIRECTED 07/28/20 17:49 Chest 1V Frontal [CR] Stat 07/28/20 18:06 PE Chest [Ang Chest] [CT] Stat
[2020-07-28 18:01] LABS: CHLORIDE,CL 105 mmol/L (98-107); SODIUM,NA 145 mmol/L (136-145)
[2020-07-28] MEDS ORDERED: Iopamidol 755 Mg/ML 100 ML Bottle ONE (18:20)
[2020-07-28] MEDS ORDERED: GI Cocktail Oral Solution 30 ML PO ONE (18:30)
[2020-07-28] MEDS ORDERED: Sucralfate 1 GM Tab PO ONE (19:18)
[2020-07-28] MEDS ORDERED: Pantoprazole 40 MG Vial IVPUSH ONE (19:18)
[2020-07-28 21:35] VITALS: BP 138/54; PULSE 66
== END 2020-07-28 20:20 | disposition home or self-care (01) ==
LOC: LL.ED 17:00
DX: R07.89 Other chest pain (principal); I11.0 Hypertensive heart disease with heart failure; I50.9 Heart failure, unspecified; E78.5 Hyperlipidemia, unspecified; J44.9 Chronic obstructive pulmonary disease, unspecified; G25.81 Restless legs syndrome; M19.90 Unspecified osteoarthritis, unspecified site; G62.9 Polyneuropathy, unspecified; G35 Multiple sclerosis; E03.9 Hypothyroidism, unspecified; E66.9 Obesity, unspecified; Z68.42 Body mass index [BMI] 45.0-49.9, adult; Z88.8 Allergy status to other drugs, medicaments and biological substances; Z79.899 Other long term (current) drug therapy; Z79.82 Long term (current) use of aspirin
CPT/HCPCS: 36415; 71045; 71275; 80053; 83605; 83735; 83880; 84484; 85025; 85379; 85610; 93005; 93010; 99284; 99285-25; A9270-GY; Q9967

== ENCOUNTER 2020-10-02 10:55 | Emergency (ER) | payer BC ==
[2020-10-02 11:03] VITALS: BP 138/76; PULSE 65
[2020-10-02] MEDS: Sodium Chloride 0.9% 10 ML Syringe FLUSH SCH (12:11)
[2020-10-02] MEDS: HYDROmorphone 1 MG/ML Syringe IVPUSH ONE (12:11)
--- NOTE | 2020-10-02 17:51 | EDM.PDOC ---
ED HPI GENERAL MEDICAL PROBLEM - General Chief Complaint: Upper Extremity Injury/Pain Stated Complaint: fall, right shoulder pain Time Seen by Provider: 10/02/20 10:58 Source of Information: Reports: Patient History Limitations: Reports: No Limitations - History of Present Illness INITIAL COMMENTS - FREE TEXT/NARRATIVE: Pt. presents to ER with complaints of R upper humerus/shoulder pain post fall. Pt. states that she tripped over her shoe. Denies striking head. No chest pain or shortness of breath pre or post fall. Pt. denies any injury elsewhere. She states that she has a history of osteoporosis and OA and there has been discussion about replacing her shoulder. Onset: Today Location: Reports: Upper Extremity, Right Quality: Reports: Ache, Sharp, Throbbing Treatments INSTRUMENTATION FITTER: Reports: Splint(s) Right Shoulder Pain Score (Numeric/FACES): 7 - Related Data Allergies Allergy/AdvReac Type Severity Reaction Status Date / Time generic pain medication Allergy Vomiting Uncoded 10/02/20 11:10 Home Meds: Home Meds ALPRAZolam [Alprazolam] 0.25 mg PO BEDTIME 12/25/13 [History] Albuterol [Proventil HFA] 2 puff INH Q4HR PRN 12/25/13 [History] Baclofen 10 mg PO TID 12/25/13 [History] Clobetasol [Clobetasol Propionate 0.05% Cream] 1 applic TOP BID PRN 12/25/13 [History] Folic Acid 1 mg PO DAILY 12/25/13 [History] Interferon Beta-1a w/Albumin [Rebif] 44 mcg SUBCUT MOWEFR@2100 12/25/13 [History] Metoprolol Tartrate [Lopressor] 25 mg PO BID 12/25/13 [History] Multivitamin [Multi-Vitamin Daily] 1 tab PO DAILY 12/25/13 [History] Potassium Chloride 20 meq PO BID 12/25/13 [History] Sertraline [Zoloft] 100 mg PO DAILY 12/25/13 [History] azaTHIOprine [Azathioprine] 1 tab PO BID 12/25/13 [History] hydroCHLOROthiazide [Hydrochlorothiazide] 12.5 mg PO DAILY 11/15/14 [History] Cinnamon Bark [Cinnamon] 500 mg PO DAILY 06/22/18 [History] Fluticasone/Vilanterol [Breo Ellipta 100-25 MCG Inhalation Kit] 1 puff IH BEDTIME 06/22/18 [History] Liothyronine [Cytomel] 5 mcg PO DAILY 06/22/18 [History] Oxybutynin [Oxybutynin ER] 5 mg PO DAILY 06/22/18 [History] Phentermine HCl 37.5 mg PO DAILY 06/22/18 [History] Pregabalin [Lyrica] 75 mg PO DAILY 06/22/18 [History] Pregabalin [Lyrica] 150 mg PO BEDTIME 06/22/18 [History] Triamcinolone Acetonide [Kenalog 0.1% Crm] 1 applic TOP BID PRN 06/22/18 [History] sulfaSALAzine 500 mg PO DAILY PRN 06/22/18 [History] Levothyroxine 150 mcg PO MOTUWETHFRSA@0800 08/11/18 [History] Nystatin [Nyamyc] 1 applic TOP BID PRN 08/11/18 [History] polyethylene glycoL 3350 [Miralax] 17 gm PO DAILY PRN 08/11/18 [History] Cholecalciferol (Vitamin D3) [Vitamin D3] 5,000 units PO DAILY tablet 08/24/18 [Rx] Acetaminophen [Tylenol] 650 mg PO Q6H 03/06/19 [History] Aspirin 1 tab PO DAILY 03/06/19 [History] Betamethasone Dipropionate 1 applic TOP DAILY PRN 03/06/19 [History] Calcium Citrate 2 tab PO DAILY 03/06/19 [History] Cyanocobalamin (Vitamin B-12) [B-12] 1 tab PO DAILY 03/06/19 [History] Garlic 1 cap PO DAILY 03/06/19 [History] Makenna Root 1 cap PO DAILY 03/06/19 [History] Ketoconazole [Nizoral 2% Crm] 1 applic TOP DAILY PRN 03/06/19 [History] L.acidoph,Paracasei, B.lactis [Probiotic] 3 cap PO DAILY 03/06/19 [History] Melatonin 1 tab PO BEDTIME 03/06/19 [History] Multivitamin with Minerals [Hair, Skin and Nails] 1 tab PO DAILY 03/06/19 [History] [place]-3/DHA/Epa/Fish Oil [Fish Oil 1,400 MG Softgel] 1 cap PO DAILY 03/06/19 [History] Sennosides/Docusate Sodium [Senna-Docusate Sodium Tablet] 1 tab PO BID PRN 03/06/19 [History] Turmeric 1 cap PO DAILY 03/06/19 [History] bisacodyL [Dulcolax] 5 mg PO BID PRN 03/06/19 [History] traMADol [Ultram] 50 mg PO Q6HR PRN #120 tablet 03/13/19 [Rx] Celecoxib 400 mg PO DAILY 07/28/20 [History] Levothyroxine 300 mcg PO GAY@0800 07/28/20 [History] Rosuvastatin [Crestor] 10 mg PO ASDIRECTED 10/02/20 [History] metFORMIN [Glucophage XR] 500 mg PO DAILY 10/02/20 [History] Past Medical History HEENT History: Reports: Impaired Vision, Other (See Below) Other HEENT History: She wears glasses. Cardiovascular History: Reports: Arrhythmia, Heart Failure, High Cholesterol, Hypertension, Other (See Below) Other Cardiovascular History: PVCs. Dyslipidemia and obesity. Respiratory History: Reports: Asthma, Bronchitis, Recurrent, COPD, Intubation, Previous, Pneumonia, Recurrent, Pulmonary Fibrosis, Sleep Apnea, Other (See Below) Other Respiratory History: Sleep apnea and restless leg syndrome with patient noncompliant with her CPAP recently Gastrointestinal History: Reports: Cholelithiasis, Chronic Constipation, Diverticulosis, Gastritis, GERD, Hiatal Hernia, Other (See Below) Other Gastrointestinal History: Ventral abdominal hernias by CT scan. Genitourinary History: Reports: Hydronephrosis, Renal Calculus, Urinary Incontinence, Other (See Below) Other Genitourinary History: Sided urolithiasis on 10/22/12. Moderate right-sided hydronephrosis with additional urolithiasis with spontaneous passage on 12/25/13. DANCE ENTERTAINER History: Reports: Dysfunctional Uterine Bleeding, Polycystic Ovaries, Other DANCE ENTERTAINER History: Full term without complications during pregnancies or deliveries. Surgical menopause as below secondary to polycystic ovarian syndrome. 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 Small proximal avulsion fracture of the middle phalanx of digit #5 of the left hand with PIP dislocation on 11/05/14 with dislocation of the middle phalanx. Neurological History: Reports: Headaches, Chronic, MS, Neuropathy, Peripheral, Speech Problems, Vertigo, Other (See Below) Other Neuro History: Restless leg syndrome. Occasional dysarthria and vertigo/dizziness secondary to her MS diagnosed on 10/18/06 by MRI as below. Psychiatric History: Reports: Addiction, Anxiety, Depression, Other (See Below) Other Psychiatric History: Intermittent Ultram use. 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 Hypokalemia. Hematologic History: Reports: Other (See Below) Other Hematologic History: Anemia after first . Immunologic History: Reports: None, Immunosuppression, Other (See Below) Other Immunologic History: Immunosuppression secondary to medical therapy for her MS. 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 Dermatologic History: Reports: Psoriasis - Infectious Disease History Infectious Disease History: Reports: Chicken Pox, Influenza, Mononucleosis, Rheumatic Fever - Past Surgical History Head Surgeries/Procedures: Reports: None HEENT Surgical History: Reports: Oral Surgery, Other (See Below) Other HEENT Surgeries/Procedures: Multiple teeth extractions. Cardiovascular Surgical History: Reports: None Respiratory Surgical History: Reports: Other (See Below) Other Respiratory Surgeries/Procedures: Bronchoscopy at age 6 to remove a peanut. GI Surgical History: Reports: Bariatric Procedure, Cholecystectomy, Colonoscopy, Other (See Below) Other GI Surgeries/Procedures: Colonoscopy last in 2009. Gastric banding in 2008. Laparoscopic cholecystectomy in 2007. Female Surgical History: Reports: Breast Biopsy, D&C, Hysterectomy, Oophorectomy, Salpingo-Oophorectomy, Tubal Ligation, Other (See Below) Other Female Surgeries/Procedures: Lateral tubal ligation in 1987. D&C secondary to dysfunctional uterine bleeding on 10/06/95. Left-sided oophorectomy in April 1985. Laparoscopic assisted vaginal hysterectomy with concomitant right-sided salpingo-oophorectomy and posterior repair on 04/09/99. Endocrine Surgical History: Reports: None Musculoskeletal Surgical History: Reports: Other (See Below) Other Musculoskeletal Surgeries/Procedures:: Left arthroscopic knee surgery in the 1980s. Left TKA on 02/05/2000 with right TKA on 09/25/11. Left open knee surgery in 1975. Dermatological Surgical History: Reports: Skin Biopsy, Other (See Below) - Past Imaging History Past Imaging History: Reports: Angiography (Negative heart catheterization on 09/29/16.), Cardiac Echo (06/06/12 with ejection fraction of 55%.), CAT Scan (CT of the abdomen and pelvis on 12/25/13 and 10/22/12.), DEXA Scan (01/31/15), Mammogram (Last mammogram on 01/07/17.), MRI (MRI of the lumbar spine on 03/03/18 and thoracic spine on 04/15/14. MRI of the Brain on 10/18/06 confirming MS.), PFT (Last PFTs on 03/17/18.), Stress Testing (Borderline positive Lexiscan on 08/31/16.), Ultrasound (Soft tissue ultrasound of the neck on 08/26/17.), Other (See Below) (Multiple EMGs and nerve conduction studies last on 04/13/18. Visual evoked potential on 12/12/12.) Social & Family History - Family History HEENT: Reports: None Cardiac: Reports: Afib, AICD, Arrhythmia, Blood Clots/VTE/DVT, Bypass, CAD, High Cholesterol, Hypertension, MO, Pacemaker, Other (See Below) Other Cardiac Family History: Father with history of postoperative DVT of the leg after CABG. Father with initial MO at age 51 with three-vessel CABG. Subsequent MO, atrial fibrillation, and AICD/pacemaker placement at age 61. Patient with fatal MO/arrhythmia despite the ICD at age 70. Paternal grandmother with unknown type of fatal heart disease in her early 50s. Brother and father with hyperlipidemia. Mother with hypertension. Paternal aunt with mitral valve prolapse. Respiratory: Reports: COPD, Sleep Apnea Other Respiratory Family Hisory: Son with sleep apnea. Father with COPD with history of tobacco use. GI: Reports: Celiac Disease, Pancreatitis, Other (See Below) Other GI Family History: Mother with cholelithiasis and diverticulosis. Son with celiac disease. Sister with cholelithiasis and secondary pancreatitis. : Reports: Renal Calculus, Other (See Below) Other Family History: Brother with urolithiasis. OBGYN: Reports: None Musculoskeletal: Reports: Arthritis, Gout, Other (See Below) Other Musculoskeletal Family History: Son with gout. Neurological: Reports: Migraines, Seizure, Other (See Below) Other Neurological Family History: Son with migraine headaches. Sister with unknown type of seizure disorder. Psychiatric: Reports: Anxiety, Depression, Other (See Below) Other Psychiatric Family History: Son with anxiety depression disorder. Endocrine/Metabolic: Reports: Diabetes, type II, Hypothyroidism, IDDM, Other (See Below) Other Endocrine/Metabolic Family History: Paternal aunt and Maternal grandfather with IDDM. Sister and mother with hypothyroidism. Hematologic: Reports: None Immunologic: Reports: None Dermatologic: Reports: None Oncologic: Reports: Lung, Skin, Other (See Below) Other Oncologic Family History: Paternal grandfather with fatal lung cancer at age 65 with history of tobacco use. Mother with squamous cell carcinoma. Father with basal cell carcinoma. Brother with melanoma. Maternal uncle with fatal pancreatic cancer in his 70s. 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 ED EXAM, GENERAL - Physical Exam Exam: See Below Exam Limited By: No Limitations General Appearance: Alert, WD/WN, No Apparent Distress Head: Atraumatic, Normocephalic Neck: Normal Inspection, Supple, Non-Tender, Full Range of Motion Extremities: Normal Inspection, Arm Pain (proximal humerus. No obvious deformity. Reports increased pain with movement of joint.), Limited Range of Motion Course - Vital Signs Last Recorded V/S: Last Vital Signs Temp 36.4 C 10/02/20 10:58 Pulse 65 10/02/20 10:58 Resp 20 10/02/20 10:58 BP 138/76 10/02/20 10:58 Pulse Ox 96 10/02/20 10:58 - Orders/Labs/Meds Orders: Active Orders 24 hr Category Date Time Status Humerus Rt [CR] Stat Exams 10/02/20 11:18 Taken Shoulder Comp Rt [CR] Stat Exams 10/02/20 11:17 Taken Meds: Medications Discontinued Medications Generic Name Dose Route Start Last Admin Trade Name Freq PRN Reason Stop Dose Admin Hydromorphone HCl 1 mg 10/02/20 12:06 10/02/20 12:11 Hydromorphone 1 Mg/Ml Syringe IVPUSH 10/02/20 12:07 1 mg ONETIME ONE Administration Sodium Chloride 10 ml 10/02/20 12:15 10/02/20 12:11 Sodium Chloride 0.9% 10 Ml Syringe FLUSH 10 ml ASDIRECTED STAN Administration - Radiology Interpretation Free Text/Narrative:: R proximal humerus fx Departure - Departure Time of Disposition: 17:50 Disposition: Home, Self-Care 01 Clinical Impression: Fracture of humerus - Discharge Information Instructions: Acetaminophen; Hydrocodone tablets or capsules, Humerus Fracture Treated With Immobilization, [id number] Referrals: Claudette Matt PA-C [Primary Care Provider] - Forms: ED Department Discharge Additional Instructions: I discussed the case with Dr. Juarez, Orthopedist sound person at [place]. He advised placing a shoulder immobilizer and conservative treatment. [place] 10/325mg 1 tab every 4-6 hours as needed for pain. You can start out taking half of a tab if a full one is too strong. Do not sales route driver/operate machinery if you are taking this medication. Follow-up with Dr. Garcia at [facility] within the next 7-10 days. Call at any time if you have questions. Sepsis Event Note (ED) - Evaluation Sepsis Screening Result: No Definite Risk - Focused Exam Vital Signs: Vital Signs Temp Pulse Resp BP Pulse Ox 10/02/20 10:58 36.4 C 65 20 138/76 96 - My Orders Last 24 Hours: My Active Orders 10/02/20 11:17 Shoulder Comp Rt [CR] Stat 10/02/20 11:18 Humerus Rt [CR] Stat - Assessment/Plan Last 24 Hours: My Active Orders 10/02/20 11:17 Shoulder Comp Rt [CR] Stat 10/02/20 11:18 Humerus Rt [CR] Stat Plan: I discussed the case with Dr. Juarez, Orthopedist sound person at [facility]. He advised placing a shoulder immobilizer and conservative treatment. [place] 10/325mg 1 tab every 4-6 hours as needed for pain. You can start out taking half of a tab if a full one is too strong. Do not sales route driver/operate machinery if you are taking this medication. Follow-up with Dr. Garcia at [facility] within the next 7-10 days. Call at any time if you have questions.
== END 2020-10-02 12:50 | disposition home or self-care (01) ==
LOC: LL.ED 10:55
DX: S42.291A Other displaced fracture of upper end of right humerus, initial encounter for closed fracture (principal); E78.00 Pure hypercholesterolemia, unspecified; I10 Essential (primary) hypertension; J44.9 Chronic obstructive pulmonary disease, unspecified; E03.9 Hypothyroidism, unspecified; E66.9 Obesity, unspecified; Z68.30 Body mass index [BMI] 30.0-30.9, adult; Z79.84 Long term (current) use of oral hypoglycemic drugs; Z79.82 Long term (current) use of aspirin; Z79.899 Other long term (current) drug therapy; W01.0XXA Fall on same level from slipping, tripping and stumbling without subsequent striking against object, initial encounter
CPT/HCPCS: 73030-RT; 73060-RT; 96374; 99283-25; 99284; J1170

== ENCOUNTER 2024-11-07 16:45 | Emergency (ER) | payer MEDICARE ==
[2024-11-07 17:49] VITALS: BP 124/72; PULSE 66
[2024-11-07] MEDS: Take Home: traMADol 50 MG, 4 Tab Pack PO ONE (17:49)
== END 2024-11-07 17:52 | disposition home or self-care (01) ==
LOC: LL.ED 16:45
DX: S20.212A Contusion of left front wall of thorax, initial encounter (principal); S80.01XA Contusion of right knee, initial encounter; I11.0 Hypertensive heart disease with heart failure; I50.9 Heart failure, unspecified; E78.00 Pure hypercholesterolemia, unspecified; J44.9 Chronic obstructive pulmonary disease, unspecified; Z79.899 Other long term (current) drug therapy; Z79.51 Long term (current) use of inhaled steroids; Z79.890 Hormone replacement therapy; Z79.84 Long term (current) use of oral hypoglycemic drugs; W18.39XA Other fall on same level, initial encounter; Y93.89 Activity, other specified
CPT/HCPCS: 71045; 72070; 99283; 99284; A9270-GY